=== PATIENT | male | born 1960 | race Caucasian/White ===

== ENCOUNTER 2022-12-15 14:16 | Inpatient (IN) | payer MEDICARE, OTHER, SELFPAY ==
[2022-12-15] VITALS (12 sets, daily range): BP systolic 148–199; BP diastolic 71–79; PULSE 82–91; RESP 12–20; TEMP 36.1–36.8; O2SAT 96–100; BMI 29.3
--- NOTE | ~2022-12-15 | XR_ITS ---
EXAMINATION: XR chest 1V portable DATE: 12/20/2022 05:44 INDICATION: Acute respiratory failure. Pulmonary edema. TECHNIQUE: A single frontal view of the chest was obtained. COMPARISON: Chest single view 12/19/2022, CT abdomen and pelvis 12/18/2022 FINDINGS: There is a diffuse interstitial pattern in the lungs. There are airspace opacities in the l ower lung zones, left worse than right. No pleural effusion or pneumothorax. The heart size is normal . Surgical clips in the right upper quadrant are likely from cholecystectomy. IMPRESSION: 1. Diffuse lung disease with improvement in left midlung zone, consistent with pulmonary edema versus pneumonia. Reviewed, dictated and finalized at location E.
--- NOTE | ~2022-12-15 | CT_ITS ---
EXAMINATION: CTA abd aorta runoff DATE: 12/16/2022 14:24 INDICATION: Assess for hematoma post cardiac care. Presented with shortness of breath and hypertensio n post cardiac catheterization with subsequent hypotension following intubation with propofol sedatio n. TECHNIQUE: Computed tomographic angiography (CTA) of the abdominal, pelvis, and both lower extremitie s was performed with 150 mL Omnipaque 350 intravenous contrast. Automated exposure control and iterat cesia reconstruction technique were employed. The dose-length product was 1743.5 mGy-cm. COMPARISON: Chest CT dated 12/16/2022 at 10:54 AM FINDINGS: ABDOMINAL AORTA AND ITS BRANCHES: Abdominal aorta is normal in caliber with no dissection. There is a small amount of nonhemodynamicall y significant atherosclerotic plaque scattered along the aorta without hemodynamically significant st enosis. Small amount of additional scattered atherosclerotic plaque without hemodynamically significa nt stenosis at the origin of the celiac axis, long portion of the superior mesenteric artery and at t he origins of the bilateral renal arteries and inferior mesenteric artery. Incidentally noted is tamir tional small accessory right renal artery. PELVIC VASCULATURE: Scattered minimal amount of atherosclerotic plaque without hemodynamic significant stenosis along the right common and right internal iliac arteries. Remaining common, external and internal iliac arteri es are patent without evident atherosclerotic plaque. RIGHT LOWER EXTREMITY: There is an arterial access sheath extending into the right common femoral artery with distal tip in the distal right external iliac artery. There is stranding in the surrounding subcutaneous tissues wh ich tracks inferiorly along the anteromedial aspect of the proximal most right thigh consistent with likely hematoma related to the vascular access. No evident pseudoaneurysm or active contrast extravas ation. Small amount of atherosclerotic calcific location without significant stenosis at the right co mmon femoral artery. More extensive peripheral likely Monckeberg type vascular calcifications without hemodynamically significant stenosis along the right superficial femoral, profunda femoral and popli teal arteries. Additional scattered vascular calcification is along the more distal arteries which li mits assessment for degree of stenosis. The right anterior tibial artery is atretic with contrast opa cification disappearing at the level of the junction of the mid to distal third of the lower leg. The re is 2 vessel runoff below the ankle in the right posterior tibial and peroneal arteries, the latter resupplying the right dorsalis pedis artery. LEFT LOWER EXTREMITY: Relatively symmetric appearing diffuse peripheral likely Monckeberg type vascular calcification is al frandy the right superficial femoral, deep femoral and popliteal arteries without hemodynamically signif icant stenosis. There is three-vessel runoff below the left ankle. ADDITIONAL FINDINGS: Small bilateral pleural effusions. Large amount of consolidation in the dependent right lower lobe wi th smaller patchy airspace opacities in the left lower lobe. Linear discoid atelectasis at the lingul a and right middle lobe. Heart size is normal. Atherosclerotic coronary artery calcifications and lik mikel stenting along the left anterior descending coronary artery. Aortic valve calcification. No peric ardial effusion. There is reflux of a significant amount of contrast into the inferior vena cava belo w the level of the renal veins consistent with tricuspid regurgitation. Nasogastric tube with distal tip in proximal side port in the body of the stomach. Cholecystectomy clips the gallbladder fossa. Li harlan, spleen, pancreas, bilateral adrenal glands are normal. There are bilateral renal cysts, the larg est measuring up to 1.5 cm the right kidney. Bowels including the appendix are normal. Moderate-sized f
--- NOTE | ~2022-12-15 | XR_ITS ---
Portable chest x-ray Comparison: 12/17/2022 Clinical History: Acute respiratory failure Findings: Endotracheal tube and NG tube are in satisfactory positions. There is extensive interstiti al disease with patchy haziness, especially the right midlung and left lower lobe. Cardiomediastinal silhouette is stable. Bones and soft tissues are unremarkable. Impression: Hazy and interstitial pulmonary disease. Correlate for pulmonary edema, infection, and/or chronic int erstitial disease. Support tubes, as above. Reviewed, dictated and finalized at location . Impression: Hazy and interstitial pulmonary disease. Correlate for pulmonary edema, infecti on, and/or chronic interstitial disease. Support tubes, as above.
--- NOTE | ~2022-12-15 | XR_ITS ---
EXAMINATION: XR chest ET placement, XR abdomen gastric tube insert DATE: 12/16/2022 10:25 INDICATION: Endotracheal tube placement for respiratory distress. Orogastric tube insertion. TECHNIQUE: 1. Portable AP supine view of the chest was obtained. 2. Portable AP supine view of the abdomen was obtained. COMPARISON: Chest radiograph dated 12/15/2022 FINDINGS: Chest: Endotracheal tube placement with distal tip 3 cm above the bakari. Significant increase in now extens cesia diffuse bilateral interstitial and airspace opacities throughout both lungs. No pleural effusion or pneumothorax. Size is normal. Abdomen: Nasogastric tube tip in proximal side port in the body of the stomach. Cholecystectomy clips in right upper quadrant. No dilated loops of gas-filled bowel to suggest obstruction. IMPRESSION: 1. Endotracheal tube and nasogastric tube in expected positions. 2. Significant increase in diffuse bilateral interstitial and airspace opacities most likely worsenin g moderate severity pulmonary edema with differential including pneumonia. Reviewed, dictated and finalized at location A. IMPRESSION: 1. Endotracheal tube and nasogastric tube in expected positions. 2. Significant increase in diffuse bilateral interstitial and airspace opacitie s most likely worsening moderate severity pulmonary edema with differential inc luding pneumonia.
--- NOTE | ~2022-12-15 | XR_ITS ---
XR chest 1V portable DATE: 12/21/2022 05:26 INDICATION: Acute respiratory failure, pulmonary edema TECHNIQUE: Portable AP chest on 12/21/2022 at 0513 hours COMPARISON: 12/21/2019 portable AP chest 0521 hours FINDINGS: Elevated right diaphragm again noted. Patchy bilateral pulmonary infiltrates are improved since 12/20/2022, particularly in the left lower lung zone. There is minimal if any pleural effusion. No pneumothorax. Heart size appears within normal range. IMPRESSION: Improvement of bilateral pulmonary infiltrates, especially in the left lower lung since 1 Reviewed, dictated and finalized at location A. IMPRESSION: Improvement of bilateral pulmonary infiltrates, especially in the l eft lower lung since 12/13
--- NOTE | ~2022-12-15 | CT_ITS ---
EXAMINATION: CTA abd aorta runoff DATE: 12/18/2022 20:21 INDICATION: drop in hemoglobin, post cardiac cath groin site. TECHNIQUE: Computed tomography (CT) of the abdomen and pelvis was performed with 150 mL Omnipaque-350 intravenous contrast in the arterial phase. 3-D volume rendered images produced by the technologist on a separate workstation Automated exposure control and iterative reconstruction technique were empl oyed. The dose-length product was 1946.74 mGy-cm. COMPARISON: None. FINDINGS: Subsegmental right basilar and subsegmental left basilar consolidation. Multiple bilateral renal cyst s. NG tube terminating in the stomach. Atherosclerotic arterial calcifications. No abdominal aortic a neurysm. Moderate umbilical hernia containing fat. Status post cholecystectomy. Significant soft tiss ue stranding in the right inguinal canal and about the right hip. No extravasation or pseudoaneurysm. Slow arterial flow in the leg vessels due to atherosclerotic disease. No severe stenosis detected. 2 vessel flow appears to be maintained below the level of the ankles. IMPRESSION: Significant right inguinal and right hip subcutaneous stranding, likely representing hemorrhage from recent procedure. No active extravasation or pseudoaneurysm. No intra-abdominal bleeding detected. Bibasilar atelectasis/consolidation. Reviewed, dictated and finalized at location K. IMPRESSION: Significant right inguinal and right hip subcutaneous stranding, likely represe nting hemorrhage from recent procedure. No active extravasation or pseudoaneury sm. No intra-abdominal bleeding detected. Bibasilar atelectasis/consolidation.
--- NOTE | ~2022-12-15 | XR_ITS ---
Portable chest x-ray Comparison: 12/16/2022 Clinical History: Respiratory failure Findings: Endotracheal tube and NG tube are in satisfactory positions. There is mild predominantly i nterstitial edema pattern, mildly improved from prior exam. Cardiomediastinal silhouette is stable. Bones and soft tissues are unremarkable. Impression: Probable interstitial pulmonary edema pattern, mildly improved. Correlate for chronic interstitial di sease or atypical infection. Support tubes, as above. Reviewed, dictated and finalized at location . Impression: Probable interstitial pulmonary edema pattern, mildly improved. Correlate for c hronic interstitial disease or atypical infection. Support tubes, as above.
--- NOTE | ~2022-12-15 | XR_ITS ---
XR chest ET placement, XR abdomen gastric tube insert 12/16/2022 11:09 Indication: Intubation Procedure: AP portable chest and limited AP portable supine view of the upper abdomen Comparison: 12/16 and 12/15/2022 Findings: NG tube in the stomach. Diffuse bilateral airspace disease unchanged. Endotracheal tube tip 3.4 cm above the bakari. There is a coronary vascular stent. No significant effusion. No pneumothora x. No acute osseous abnormality. Impression: 1: Diffuse bilateral airspace disease which may represent edema or pneumonia. Reviewed, dictated and finalized at location B. Impression: 1: Diffuse bilateral airspace disease which may represent edema or pneumonia. Impression: 1: Diffuse bilateral airspace disease which may represent edema or pneumonia.
--- NOTE | ~2022-12-15 | XR_ITS ---
EXAMINATION: XR chest 1V portable DATE: 12/19/2022 05:26 INDICATION: Acute respiratory failure. Pulmonary edema. TECHNIQUE: A single frontal view of the chest was obtained. COMPARISON: Chest single view 12/18/2022, CT abdomen and pelvis 12/18/2022 FINDINGS: There is a diffuse interstitial pattern in the lungs. There are airspace opacities in right lower lung zone and left mid and lower lung zones. No pleural effusion or pneumothorax. The heart si ze is normal. The endotracheal tube tip is 4.9 cm above the bakari. The nasogastric tube tip is in th e stomach. Surgical clips in the right upper quadrant are likely from cholecystectomy. IMPRESSION: 1. Diffuse lung disease with worsening on the left, consistent with pulmonary edema versus pneumonia. Reviewed, dictated and finalized at location E. IMPRESSION: 1. Diffuse lung disease with worsening on the left, consistent with pulmonary e cristobal versus pneumonia.
--- NOTE | ~2022-12-15 | XR_ITS ---
EXAMINATION: XR chest 1V portable Exam Date/Time: 12/15/2022 14:45 CDT HISTORY: cp FRONTAL WALL TODAY Comparison: None. RESULT: Lines, tubes, and devices: None. Lungs and pleura: Moderate diffuse reticular opacities with patchy left lung and right lower lung op acities. Streaky bibasilar opacities, likely scar/atelectasis. Cardiomediastinal silhouette: Stable. Other: No acute osseous or upper abdominal finding. IMPRESSION: Pulmonary opacities may reflect moderate pulmonary edema in the appropriate clinical context. Infecti on is not excluded. Reviewed, dictated and finalized at location K. IMPRESSION: Pulmonary opacities may reflect moderate pulmonary edema in the appropriate cli nical context. Infection is not excluded.
--- NOTE | 2022-12-15 14:19 | ECG_ITS ---
Measurements Intervals [place] Rate: 93 P: 21 HI: 150 QRS: 22 QRSD: 90 T: 30 QT: 359 QTc: 449 Interpretive Statements SINUS RHYTHM NORMAL ELECTROCARDIOGRAM NO PREVIOUS ECG AVAILABLE FOR COMPARISON Electronically Signed On 12-16-2022 7:02:32 CDT by Phuc Staples M.D.
--- NOTE | 2022-12-15 14:20 | ED.CHESTPAIN ---
HPI - Chest Pain General Chief Complaint: Chest Pain Stated Complaint: chest pain Time Seen by Provider: 12/15/22 14:20 History of Present Illness HPI narrative: Patient is a 62-year-old male with history of ESRD on hemodialysis MWF, CAD with 2 coronary stents here with chest pain. patient states that he was visiting his son at college nearby and about 10 minutes away from his child home he started feeling some substernal chest pain. He states that it seemed to worsen and spread throughout his entire chest. The pain was associated with some numbness in his left arm. He proceeded to go to his son's house and walk up about 20 stairs. On ambulating up the stairs the pain became significantly worse, he felt as though he may pass out and he became diaphoretic, short of breath and nauseous, vomiting 1 time. Once he rested he did feel a bit better upon returning to his car however he had continued chest pain so him and his came to the emergency department. He states he is only having mild midsternal discomfort at this time, it has improved from earlier. He does note that he recently had a upper respiratory infection which she seems to be recovering from. On further questioning patient does note that he has been having some vague diffuse chest pains intermittent over the last 1 month. He has been on dialysis since a prolonged hospital stay for [facility] when he was on a ventilator for about 3 months. He has not sought any care for this. He has not missed any dialysis. Related Data Allergies Allergy/AdvReac Type Severity Reaction Status Date / Time Penicillins Allergy Swelling Verified 12/15/22 14:34 Review of Systems Review of Systems: All systems reviewed & are unremarkable except as noted in HPI and below Exam Narrative: GENERAL: Well-appearing, well-nourished, and in no acute distress. HEAD: Normocephalic, atraumatic. EYES: PERRLA and EOMI. ENT: Nares clear. Mucous membranes moist. NECK: Supple. CHEST: Clear to auscultation. No respiratory distress. HEART: Regular rate and rhythm. Normal peripheral pulses. ABDOMEN: Soft, nontender, nondistended. EXTREMITIES: Normal range of motion. No edema. Fistula in right upper extremity, good thrill on exam. SKIN: Warm, dry, no rash. NEURO: No focal deficits. Alert and oriented x3. PSYCH: Normal mood and affect. Course Course Emergency Course: Chart review performed, patient here with chest pain. No prior visits here in the ED. Triage vitals show HTN, otherwise normal. Patient seen and evaluated. Patient is here with typical chest pain symptoms which worsened with exertion at home. Will do cardiac workup. Given risk factors expect admission. Will do nitro trial. Patient has had complete resolution of chest pain with nitroglycerin. He does have hyperkalemia at 6.1 on lab work and renal function consistent with ESRD on hemodialysis. Patient notes that he tends to run in the 5s and lower 6 is for his potassium. Will do treatment with insulin, D50, Kayexalate. Initial troponin is negative. CXR shows moderate pulmonary edema. Spoke with Kirit from hospitalist service, accepts patient for admission. Will get cardiology and nephrology on the case. Spoke with Dr. Urbano and Dr. Olvera who will be on consult. Patient confirms he is full code. Vital Signs Vital signs: Vital Signs Pulse Rate 91 12/15/22 14:24 Respiratory Rate 12 12/15/22 14:24 Pulse Oximetry 97 12/15/22 14:24 Temperature 98.2 F 12/15/22 14:29 Pulse Rate 90 12/15/22 15:01 Respiratory Rate 15 12/15/22 15:01 Blood Pressure 148/79 H 12/15/22 15:01 Pulse Oximetry 98 12/15/22 15:01 Oxygen Delivery Room Air 12/15/22 14:29 MDM - Chest Pain Lab Data 12/15/22 14:26 12/15/22 14:26 Labs: Lab Results 12/15/22 Range/Units 14:26 WBC 5.9 (4.5-10.0) K/mm3 RBC 2.90 L (4.6-6.20) M/mm3 Hgb 9.2 L (14.0-18.0) g/dL Hct 29.9 L (42.0-5
[2022-12-15 14:31] LABS: Basophils Percent Auto 0.5 % (0.2-1.2); Eosinophils Absolute Auto 0.1 K/mm3 (0-0.3); Eosinophils Percent Auto 1.7 % (0-4.4); Hematocrit 29.9 % (42.0-52.0); Hemoglobin 9.2 g/dL (14.0-18.0); Immature Granulocyte Absolute 0.01 K/mm3 (0.00-0.031); Immature Granulocyte Percent A 0.2 % (0-0.5); Lymphocytes Absolute Auto 0.88 K/mm3 (0.9-3.2); Lymphocytes Percent Auto 14.8 % (18.3-44.2); Mean Corpuscular HGB Conc 30.8 g/dl (32-36); Mean Corpuscular Hemoglobin 31.7 pg (26-34); Mean Corpuscular Volume 103.1 fl (80-100); Mean Platelet Volume 9.9 fl (7.4-10.4); Monocytes Absolute Auto 0.3 K/mm3 (0.1-0.6); Monocytes Percent Auto 5.4 % (2.6-8.5); Neutrophils Absolute Auto 4.6 K/mm3 (1.3-6.7); Neutrophils Percent Auto 77.4 % (45.5-73.1); Platelet Count Result 125 k/mm3 (150-375); White Blood Count 5.9 K/mm3 (4.5-10.0)
[2022-12-15] MEDS: ASPIRIN 81 MG CHEWABLE TABLET 324 MG PO (14:37)
[2022-12-15 14:43] LABS: Partial Thromboplastin Time 26.4 SECONDS (22.3-36.8)
[2022-12-15] MEDS: NITROGLYCERIN SL 0.4 MG TABLET SUBLINGUAL ×2 (14:43→16:58)
[2022-12-15 14:52] LABS: Alanine Aminotransferase 33 U/L (6-50); Albumin Level 4.2 g/dL (3.5-5.1); Alkaline Phosphatase 98 U/L (38-126); Anion Gap 11 mmol/L (8-16); Aspartate Amino Transferase 36 U/L (17-59); Bilirubin,Total 0.5 mg/dL (0.2-1.3); Blood Urea Nitrogen 78 mg/dL (9-20); Calcium 9.8 mg/dL (8.4-10.2); Carbon Dioxide 30 mmol/L (22-30); Chloride 97 mmol/L (98-107); Estimated CRCL calculation 7 ml/min; Estimated Glomerular Filt Rate 5; Glucose 339 mg/dL (65-110); Lipase 121 U/L (23-300); Potassium 6.1 mmol/L (3.4-5.0); Sodium 138 mmol/L (137-145)
[2022-12-15 14:58] LABS: Troponin I 0.017 ng/mL (0.000-0.034)
[2022-12-15] MEDS: SODIUM POLYSTYRENE SULFONONATE 15 GM/60 ML BTL 30 GM PO (15:17)
[2022-12-15] MEDS: INSULIN HUMAN REGULAR (*BKC) 100 UNITS/ML 10 UNITS IV PUSH (15:18)
[2022-12-15] MEDS: DEXTROSE 50% 25 GM/50 ML SYRINGE IV PUSH (15:18)
--- NOTE | 2022-12-15 15:30 | PM.IMHP ---
H&P: HPI History of Present Illness Date/Time: 12/15/22 15:30 Chief Complaint: Chest pain Narrative: This is a 62-year-old male patient who is being admitted to the hospital for high risk chest pain with a heart score of 5 and a story strongly suspicious for CAD. 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 Patient also has 2 prior stents feels like his pain today was reminiscent when he had angioplasty and stenting prior. Patient sees Cardiology and Nephrology at [place] receives his dialysis in his hometown of [place]. Patient was visiting his son at [facility] preceding today's event. Patient has been complaining intermittent chest discomfort over the last 1 month but today while patient was climbing 20 stairs to his son's apartment he suddenly had sensation chest pain radiating to the left with dizziness near-syncope and vomiting. Patient reports that upon getting to the hospital his chest pain was improved with rest and then resolved after 1 nitroglycerin. He was noted to have elevated blood glucose as well as elevated potassium level on chemistry panel. He is due for dialysis tomorrow. 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 Patient was treated with dextrose and insulin by the emergency department as well as given Kayexalate. Patient reports now that he is chest pain-free no current nausea vomiting fever chills abdominal pain bowel or bladder problems. He notes compliance with all of his medications. Review of Systems Review of Systems: All systems reviewed & are unremarkable except as noted in HPI and below PMFSH Past Medical History Medical History (Updated 12/15/22 @ 17:44 by Kirit Mooney APRN) Acute hyperkalemia Anemia in chronic kidney disease, on chronic dialysis CAD (coronary artery disease) Diabetes mellitus type 1.5 ESRD on hemodialysis Hypertension SHEYLA on CPAP Surgical History Surgical History H/O heart artery stent Meds Home Medications and Allergies Allergies Allergy/AdvReac Type Severity Reaction Status Date / Time Penicillins Allergy Swelling Verified 12/15/22 14:34 Vital Signs Vital Signs - 24 hr 12/15/22 14:29 12/15/22 14:29 Temperature 36.8 C Pulse Rate 88 Respiratory Rate 12 Blood Pressure 167/75 H Pulse Oximetry 100 100 Oxygen Delivery Room Air Room Air Exam Narrative: GENERAL: Chronically ill-appearing, alert and oriented, in no apparent distress. He is pleasant and conversant in full sentences. HEENT: Pupils are equally round and briskly reactive to light. Extraocular muscles are intact. Oral mucous membranes are moist without lesions. NECK: The patient has no noted JVD. No adenopathy is appreciated. CHEST/LUNGS: Lungs are clear bilaterally without rhonchi, rales, or wheezes. There is no subcutaneous air appreciated. There is no tenderness to the chest wall. HEART: The patient has a regular rate and rhythm. Loud systolic murmur noted. Sinus rhythm rate of 86 on secured entrance monitor by my interpretation ABDOMEN: The patient?s abdomen is rotund, soft, nontender, and nondistended. Bowel sounds are positive. No organomegaly is appreciated. No masses are appreciated. There are no peritoneal signs. There is no Burk?s sign. EXTREMITIES: The patient has no peripheral edema. There is no focal long bone tenderness or deformity. Right upper extremity dialysis fistula with positive thrill and bruit. SKIN: The patient?s skin is warm and dry, without rashes or lesions. PSYCHIATRIC: The patient has normal mental status and has an appropriate affect. NEUROLOGIC: There are no gross deficits to the cranial nerves. Patient ambulates with stead
--- NOTE | 2022-12-15 16:54 | ECG_ITS ---
Measurements Intervals [place] Rate: 92 P: 5 CT: 97 QRS: 29 QRSD: 94 T: 19 QT: 348 QTc: 431 Interpretive Statements SINUS RHYTHM WITH SHORT CT INTERVAL NONSPECIFIC T-WAVE ABNORMALITY BORDERLINE ECG NO PREVIOUS ECG AVAILABLE FOR COMPARISON Electronically Signed On 12-16-2022 7:03:33 CDT by Phuc Staples M.D.
--- NOTE | 2022-12-15 17:13 | ADMGEN ---
This patient, Juanito Marroquin, was admitted to IMU Room 214-01. Patient/family oriented to hospital policies and general routines including ID bracelet, bed and alarms, visiting hours, pain management, procedures, bathroom and other care routines, personal items, smoking policy, room service/diet, and visiting hours. Information on how to activate the Rapid Response Team has been discussed. Patient/Family are encouraged to report perceived risks to care and to ask questions if they do not understand what they are told or what they should do.
[2022-12-15 17:31] LABS: Glucose Point of Care 249 mg/dl (65-105)
[2022-12-15] MEDS: INSULIN ASPART (*BKC) 100 UNITS/ML 20 UNITS SUB-Q (17:46)
[2022-12-15 18:40] LABS: Troponin I 0.034 ng/mL (0.000-0.034)
[2022-12-15 18:47] LABS: Magnesium 2.6 mg/dL (1.6-2.3)
[2022-12-15 18:59] LABS: Hemoglobin A1C 6.6 % (<5.7)
[2022-12-15 19:19] LABS: Glucose Point of Care 262 mg/dl (65-105)
[2022-12-15 20:24] LABS: Albumin Level 3.9 g/dL (3.5-5.1); Anion Gap 9 mmol/L (8-16); Blood Urea Nitrogen 84 mg/dL (9-20); Calcium 9.3 mg/dL (8.4-10.2); Carbon Dioxide 32 mmol/L (22-30); Chloride 98 mmol/L (98-107); Estimated CRCL calculation 7 ml/min; Estimated Glomerular Filt Rate 5; Glucose 245 mg/dL (65-110); Phosphorus 5.1 mg/dL (2.5-4.5); Potassium 5.3 mmol/L (3.4-5.0); Sodium 139 mmol/L (137-145)
[2022-12-15 20:45] LABS: Troponin I 0.049 ng/mL (0.000-0.034)
[2022-12-15] MEDS: FLUTICASONE PROPIONATE 0.05% NA SPR 16 GM BTL (*BKC) 2 SPRAY NASAL (20:51)
[2022-12-15] MEDS: OLANZapine 5 MG TABLET PO (20:52)
[2022-12-15] MEDS: ROSUVASTATIN 10 MG TABLET PO (20:53)
[2022-12-15] MEDS: ARIPiprazole 5 MG TABLET PO (20:53)
[2022-12-15] MEDS: MIRTAZAPINE 15 MG TABLET PO (20:54)
[2022-12-15] MEDS: traZODone HCL 50 MG TABLET PO (20:54)
[2022-12-15] MEDS: METOPROLOL TARTRATE 25 MG TABLET PO (20:54)
[2022-12-15] MEDS: INSULIN ASPART (*BKC) 100 UNITS/ML SUB-Q (20:57)
[2022-12-15] MEDS: INSULIN GLARGINE (*BKC) 100 UNITS/ML 20 UNITS SUB-Q (20:58)
[2022-12-15 21:46] LABS: Basophils Percent Auto 0.6 % (0.2-1.2); Eosinophils Absolute Auto 0.1 K/mm3 (0-0.3); Eosinophils Percent Auto 1.7 % (0-4.4); Hematocrit 26.3 % (42.0-52.0); Hemoglobin 8.2 g/dL (14.0-18.0); Immature Granulocyte Absolute 0.02 K/mm3 (0.00-0.031); Immature Granulocyte Percent A 0.4 % (0-0.5); Lymphocytes Absolute Auto 0.87 K/mm3 (0.9-3.2); Lymphocytes Percent Auto 18.4 % (18.3-44.2); Mean Corpuscular HGB Conc 31.2 g/dl (32-36); Mean Corpuscular Hemoglobin 31.9 pg (26-34); Mean Corpuscular Volume 102.3 fl (80-100); Monocytes Absolute Auto 0.4 K/mm3 (0.1-0.6); Monocytes Percent Auto 8.1 % (2.6-8.5); Neutrophils Absolute Auto 3.3 K/mm3 (1.3-6.7); Neutrophils Percent Auto 70.8 % (45.5-73.1); Platelet Count Result 122 k/mm3 (150-375); Red Blood Count 2.57 M/mm3 (4.6-6.20); White Blood Count 4.7 K/mm3 (4.5-10.0)
[2022-12-15 21:58] LABS: Partial Thromboplastin Time 29.2 SECONDS (22.3-36.8)
[2022-12-15] MEDS: HEPARIN SODIUM 5,000 UNITS/ML VIAL 4000 UNITS IV PUSH (22:22)
[2022-12-15] MEDS: HEPARIN SOD/D5W 100 UNITS/ML 25,000 UNITS/250 ML BAG 10 UNITS IV CONT (22:26)
--- NOTE | 2022-12-15 22:57 | ECG_ITS ---
Measurements Intervals [place] Rate: 92 P: 9 PA: 103 QRS: 31 QRSD: 98 T: 23 QT: 360 QTc: 446 Interpretive Statements SINUS RHYTHM WITH SHORT PA INTERVAL NONSPECIFIC T-WAVE ABNORMALITY BORDERLINE ECG COMPARED TO ECG 12/15/2022 16:59:43 NO SIGNIFICANT CHANGES Electronically Signed On 12-16-2022 7:07:42 CDT by Phuc Staples M.D.
[2022-12-16] VITALS (74 sets, daily range): BP systolic 59–208; BP diastolic 45–92; PULSE 65–115; RESP 14–28; TEMP 36.4–37.9; O2SAT 94–100; BMI 29.7
[2022-12-16 00:50] LABS: Glucose Point of Care 67 mg/dl (65-105)
[2022-12-16] MEDS: NITROGLYCERIN SL 0.4 MG TABLET SUBLINGUAL ×2 (01:35→01:41)
--- NOTE | 2022-12-16 02:01 | ECG_ITS ---
Measurements Intervals [place] Rate: 95 P: 23 IN: 152 QRS: 19 QRSD: 94 T: 26 QT: 358 QTc: 450 Interpretive Statements SINUS RHYTHM NONSPECIFIC T-WAVE ABNORMALITY BORDERLINE ECG COMPARED TO ECG 12/15/2022 23:00:21 NO SIGNIFICANT CHANGES Electronically Signed On 12-16-2022 7:08:00 CDT by Phuc Staples M.D.
[2022-12-16] MEDS: MORPHINE SULFATE (*CRX) 2 MG/ML INJ 1 MG IV PUSH (02:14)
[2022-12-16 02:17] LABS: Glucose Point of Care 103 mg/dl (65-105)
[2022-12-16 02:51] LABS: Troponin I 0.056 ng/mL (0.000-0.034)
[2022-12-16] MEDS: NITROGLYCERIN OINTMENT 1 INCH DOSE TRANSDERM (02:55)
[2022-12-16] MEDS: LORazepam INJ (*CRX) 2 MG/ML VIAL 1 MG IV PUSH (04:25)
[2022-12-16] MEDS: PANTOPRAZOLE SODIUM IV 40 MG VIAL IV PUSH ×2 (04:25→20:13)
[2022-12-16 04:48] LABS: Basophils Percent Auto 0.4 % (0.2-1.2); Eosinophils Absolute Auto 0.1 K/mm3 (0-0.3); Eosinophils Percent Auto 0.6 % (0-4.4); Hematocrit 28.3 % (42.0-52.0); Hemoglobin 8.8 g/dL (14.0-18.0); Immature Granulocyte Absolute 0.01 K/mm3 (0.00-0.031); Immature Granulocyte Percent A 0.1 % (0-0.5); Lymphocytes Absolute Auto 0.97 K/mm3 (0.9-3.2); Lymphocytes Percent Auto 12.1 % (18.3-44.2); Mean Corpuscular HGB Conc 31.1 g/dl (32-36); Mean Corpuscular Hemoglobin 31.9 pg (26-34); Mean Corpuscular Volume 102.5 fl (80-100); Mean Platelet Volume 10.1 fl (7.4-10.4); Monocytes Absolute Auto 0.5 K/mm3 (0.1-0.6); Monocytes Percent Auto 5.9 % (2.6-8.5); Neutrophils Absolute Auto 6.5 K/mm3 (1.3-6.7); Neutrophils Percent Auto 80.9 % (45.5-73.1); Platelet Count Result 134 k/mm3 (150-375); Red Blood Count 2.76 M/mm3 (4.6-6.20); Red Cell Distribution Width 13.9 % (11.5-14.5)
--- NOTE | 2022-12-16 04:51 | ECG_ITS ---
Measurements Intervals [place] Rate: 97 P: 19 [place]: 152 QRS: 12 QRSD: 84 T: 10 QT: 347 QTc: 441 Interpretive Statements SINUS RHYTHM LOW QRS VOLTAGE IN PRECORDIAL LEADS [QRS DEFLECTION < 1.0 mV IN CHEST LEADS] OTHERWISE WITHIN NORMAL LIMITS COMPARED TO ECG 12/16/2022 02:11:54 NO SIGNIFICANT DIFFERENCE Electronically Signed On 12-16-2022 7:10:36 CDT by Phuc Staples M.D.
[2022-12-16 04:58] LABS: Albumin Level 4.1 g/dL (3.5-5.1); Anion Gap 11 mmol/L (8-16); Blood Urea Nitrogen 84 mg/dL (9-20); Calcium 9.4 mg/dL (8.4-10.2); Carbon Dioxide 31 mmol/L (22-30); Chloride 97 mmol/L (98-107); Estimated CRCL calculation 7 ml/min; Estimated Glomerular Filt Rate 4; Glucose 163 mg/dL (65-110); Phosphorus 5.9 mg/dL (2.5-4.5); Potassium 5.2 mmol/L (3.4-5.0); Sodium 139 mmol/L (137-145)
[2022-12-16 05:08] LABS: Partial Thromboplastin Time 73.4 SECONDS (22.3-36.8)
[2022-12-16] MEDS: ALBUTEROL SULFATE (*SP) AEROSOL 1 PUFF 2 PUFF INHALATION (05:20)
[2022-12-16] MEDS: NITROGLYCERIN/D5W 200 MCG/ML 50 MG/250 ML BTL IV CONT (05:39)
[2022-12-16] MEDS: METOPROLOL TARTRATE INJ 5 MG/5 ML VIAL IV PUSH (05:50)
--- NOTE | 2022-12-16 05:54 | PC.NURSE ---
Received patient from IMU into ICU 3 at 0510 due to nausea, chest pain rated 6/10 radiating down left arm and needs for nitro drip. Pt moved to ICU 4 at 0530 for monitoring capabilities. Patient has bilateral posterior wheezes and reports shortness of breath. On 4L at 100%. Patient given rescue inhaler and WOB improved. Patient started on nitro drip per Dr Staples with chest pain at 4/10 and BP 168/78. 5mg metoprolol given with chest pain 3/10 and BP 190/82. At 0557 patient reports no SOB, no nausea, and chest pain at a 2/10. Oxygen reduced to 2L per nasal cannula.
--- NOTE | 2022-12-16 06:23 | PC.NURSE ---
nitro patch removed from chest.
--- NOTE | 2022-12-16 06:30 | PC.NURSE ---
Kristian called and made aware of change in status and room change. She will try to be here as soon as she can. Directions to ICU given.
[2022-12-16 07:02] LABS: Hepatitis B Surface Antigen Negative (Negative)
[2022-12-16 07:18] LABS: Hepatitis B Surface Anti Res Indeterminate
--- NOTE | 2022-12-16 07:38 | PC.NURSE ---
Dr. Staples to bedside. to take patient to Cardiac Cath now.
--- NOTE | 2022-12-16 07:40 | PM.CNCAR ---
Assessment and Plan Assessment and plan (1) Chest pain: Qualifiers: Chest pain type: unspecified Qualified Code(s): R07.9 - Chest pain, unspecified Code(s): R07.9 - Chest pain, unspecified Status: Acute (2) ESRD on hemodialysis: Code(s): N18.6 - End stage renal disease; Z99.2 - Dependence on renal dialysis Status: Acute Plan This is a 62-year-old man with coronary artery disease and what he describes as mild aortic valve stenosis in his follow-up with his metal stamping machine operator at [place]. He has previous PCI details unavailable to me about 2 years ago. He enters the hospital with waxing waning chest pain consistent with unstable angina. We will make arrangements for follow-up angiography. I offered to the patient contacting his metal stamping machine operator at [place] and transferring him over there or proceeding with angiography here. He wishes to remain here at [place] for this time being. I will also need to review the results of his records of the previous PCI hopefully prior to proceeding with today's procedure. Further recommendations to be pending completion of this morning's angiogram Phuc Staples MD [facility] History of Present Illness History of Present Illness Consult date/time: 12/16/22 07:40 Reason For Visit: Chest pain Narrative: This is a 62-year-old man I am seeing at the request of the hospitalist because of chest pain concerning unstable angina. This is a man I have not seen previously but has an established history of coronary artery disease with previous PCI. He came to the hospital yesterday afternoon/evening because of significant chest pain associated with nausea and diaphoresis. He was walking in the [place] area and into his son's residence. He has to go up to a number of flights of stairs to get to his son's residence and when he got to the top of the staircase he was having significant retrosternal burning pain associated with some nausea and diaphoresis. He stopped to rest he took some nitroglycerin tablets and felt a bit better but the symptoms were lingering and so he came to the emergency room for evaluation. In the emergency department he received some additional nitrates and his pain was resolved. He was found to have a benign-looking ECG and normal biomarkers and was admitted to the hospital for further evaluation and management. Initially he was stable but through the night he has had waxing and waning episodes of chest discomfort which resulted in the decision to place him on heparin and IV nitroglycerin and transfer him to the ICU. His symptoms are very mild now he describes his pain at 1/10 his troponin levels have not risen significantly and his electrocardiograms remain unchanged. He has a history of longstanding hypertension and a history of end-stage renal disease he is on hemodialysis for about 2 years he states his renal failure was a consequence of the coronavirus infection. He does have a history of coronary artery disease he presented with some unstable exertional chest pain about 2 and half years ago and was transferred to [facility] for care and evaluation he states he underwent PCI involving 2 coronary stents placed at that time. The details of the intervention are not available to me at the time of this consult dictation. He says the procedure was successful and he has been following with his metal stamping machine operator at [place] since the procedure. 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
--- NOTE | 2022-12-16 07:56 | WPDCNINT ---
Assessment and Plan Assessment and plan (1) Chest pain: Qualifiers: Chest pain type: unspecified Qualified Code(s): R07.9 - Chest pain, unspecified Code(s): R07.9 - Chest pain, unspecified Status: Acute Assessment and Plan: Patient presented with chest pain with nausea, vomiting, diaphoresis and radiation to the left arm. -patient was transferred to the ICU from intermediate Unit on early hours of 12/16/2022 for increasing chest pain and requiring nitroglycerin infusion -appreciate cardiology evaluation and recommendation -patient will be going for angiogram today -remains on nitroglycerin infusion, p.r.n. IV metoprolol for hypertension -continue rosuvastatin (2) ESRD on hemodialysis: Code(s): N18.6 - End stage renal disease; Z99.2 - Dependence on renal dialysis Status: Acute Assessment and Plan: Nephrology has been consulted -dialysis likely after angiogram (3) Acute hyperkalemia: Code(s): E87.5 - Hyperkalemia Status: Acute Assessment and Plan: Have ordered Lokelma, will continue to monitor potassium level (4) Hypertension: Code(s): I10 - Essential (primary) hypertension Status: Acute Assessment and Plan: History of essential hypertension on amlodipine, p.o. metoprolol -p.r.n. metoprolol IV (5) SHEYLA on CPAP: Code(s): G47.33 - Obstructive sleep apnea (adult) (pediatric) Status: Acute Assessment and Plan: CPAP has been ordered (6) Diabetes mellitus type 1.5: Code(s): E13.9 - Other specified diabetes mellitus without complications Status: Acute Assessment and Plan: Continue Accu-Cheks, sliding scale and Lantus (7) Anemia in chronic kidney disease, on chronic dialysis: Code(s): N18.6 - End stage renal disease; D63.1 - Anemia in chronic kidney disease; Z99.2 - Dependence on renal dialysis Status: Acute Assessment and Plan: Anemia of chronic disease, hemoglobin has been stable since admission -do not have previous hemoglobin levels to compare Plan DVT prophylaxis: Heparin infusion Stress ulcer prophylaxis: Protonix Nutrition: NPO for angiogram Code Status: Full code Critical Care Time Spent: 49 minutes Discussed with cardiology Discussed with patient, updated with his condition and plan of care. He is aware that he is getting an angiogram this morning since he only spoke to the signing teacher. Due to a high probability of clinically significant, life threatening deterioration, the patient required my highest level of preparedness to intervene emergently and I personally spent this critical care time directly and personally managing the patient. This critical care time included obtaining a history; examining the patient; pulse oximetry; ordering and review of studies; arranging urgent treatment with development of a management plan; evaluation of patient's response to treatment; frequent reassessment; and discussions with other providers. It was exclusive of separately billable procedures and treating other patients and teaching time. Please see Assessment and Plan section and the rest of the note for further information on patient assessment and treatment This dictation may have been done utilizing a voice recognition system. Attempts have been made to correct errors. However, there may be uncorrected grammatical, spelling, and recognitions errors present. Ela Teacher Consult Note Consult date: 12/16/22 Reason for consult: NSTEMI, chest pain with radiation to the left arm, nausea, diaphoresis HPI: Juanito Marroquin is a 62 year old male with past medical history of end-stage renal disease on dialysis (M, W, F, ) chronic hyperkalemia, coronary artery disease status post stents x2 at [facility], essential hypertension, obstructive sleep apnea on CPAP, diabetes presented the ED on 12/15/2022 with complaints of chest pain with radiation to the left arm, associated diaphoresis, anjali
[2022-12-16 08:15] LABS: Glucose Point of Care 160 mg/dl (65-105)
--- NOTE | 2022-12-16 08:26 | WPDMODSED ---
Moderate Sedation Note-Pt Data Patient Data Diagnosis: Chest pain consistent with unstable angina coronary disease with previous PCI aortic valve stenosis felt to be moderate end-stage renal disease on hemodialysis Present Complaint: intermittent chest pain Procedure to be performed/Plan: coronary angiography Allergies Allergy/AdvReac Type Severity Reaction Status Date / Time Penicillins Allergy Swelling Verified 12/15/22 14:34 Home Medications Medication Instructions Recorded Confirmed Type B comp 3-folic acid 1 mg-C 60 1 tablet PO QAM 12/15/22 12/15/22 History mg-biotin 300 mcg-zinc ox 12.5 mg tablet acetaminophen 325 mg capsule 325 mg PO Q6H PRN Pain 12/15/22 12/15/22 History albuterol sulfate 90 mcg/actuation 2 puff inhalation QID PRN 12/15/22 12/15/22 History aerosol inhaler Shortness Of Breath amlodipine 10 mg tablet 10 mg PO QAM 12/15/22 12/15/22 History aripiprazole 5 mg tablet 5 mg PO HS 12/15/22 12/15/22 History ascorbic acid (vitamin C) 250 mg See Rx Instructions .Route .COMPLEX 12/15/22 12/15/22 History tablet aspirin 81 mg tablet 81 mg PO QAM 12/15/22 12/15/22 History budesonide-formoterol HFA 160 3 puff inhalation Q12H PRN 12/15/22 12/15/22 History mcg-4.5 mcg/actuation aerosol Shortness Of Breath inhaler (Symbicort) ergocalciferol (vitamin D2) 1,250 50,000 unit PO [id number] 12/15/22 12/15/22 History mcg (50,000 unit) capsule (Vitamin D2) fluticasone propionate 110 1 puff inhalation Q12H 12/15/22 12/15/22 History mcg/actuation HFA aerosol inhaler (Flovent HFA) fluticasone propionate 50 2 spray intranasal QAM 12/15/22 12/15/22 History mcg/actuation nasal spray,suspension hydrocodone 5 mg-acetaminophen 325 1 tablet PO Q6H PRN Pain 12/15/22 12/15/22 History mg tablet insulin aspart See Rx Instructions .Route .COMPLEX 12/15/22 12/15/22 History (niacinamide)(U-100) 100 unit/mL(3 mL) subcutaneous pen (Fiasp FlexTouch U-100 Insulin) insulin degludec 200 unit/mL (3 20 unit subcut HS 12/15/22 12/15/22 History mL) subcutaneous pen (Tresiba FlexTouch U-200 insulin) metoprolol tartrate 25 mg tablet 25 mg PO Q12H 12/15/22 12/15/22 History mirtazapine 15 mg tablet 15 mg PO HS 12/15/22 12/15/22 History olanzapine 5 mg tablet 5 mg PO HS 12/15/22 12/15/22 History pantoprazole 40 mg tablet,delayed 40 mg PO QAM 12/15/22 12/15/22 History release rosuvastatin 10 mg tablet 10 mg PO HS 12/15/22 12/15/22 History sodium zirconium cyclosilicate 10 See Rx Instructions .Route .COMPLEX 12/15/22 12/15/22 History gram oral powder packet (Lokelma) sucroferric oxyhydroxide 500 mg 500 mg PO AC 12/15/22 12/15/22 History chewable tablet (Velphoro) trazodone 50 mg tablet 50 mg PO HS 12/15/22 12/15/22 History Current Medications: Active Medications Acetaminophen (Acetaminophen 325 Mg Tablet) 650 mg PO Q4H PRN PRN Reason: Pain or Fever Hydrocodone Bitart/Acetaminophen (Hydrocodone/Acetaminophen (*Crx) 5-325 Mg Tablet) 1 tab PO Q6H PRN PRN Reason: Pain Rated 6 or Greater Albuterol (Albuterol Sulfate (*Sp) Aerosol 1 Puff) 2 puff INHALATION QID PRN PRN Reason: Shortness Of Breath Last Admin: 12/16/22 05:20 Dose: 2 puff Amlodipine Besylate (Amlodipine Besylate 5 Mg Tablet) 10 mg PO QAM INDERJIT Aripiprazole (Aripiprazole 5 Mg Tablet) 5 mg PO HS INDERJIT Last Admin: 12/15/22 20:53 Dose: 5 mg Ascorbic Acid (Ascorbic Acid 250 Mg Tablet) 250 mg PO DAILY INDERJIT Aspirin (Aspirin 81 Mg Chewable Tablet) 81 mg PO QAM INDERJIT Dextrose (Dextrose 50% 25 Gm/50 Ml Syringe) 12.5 gm IV PUSH PRN PRN; Protocol PRN Reason: Hypoglycemia Fluticasone Propionate (Fluticasone Propionate 0.05% Na Spr 16 Gm Btl (*Bkc)) 2 spray NASAL QAM [facility] Last Admin: 12/15/22 20:51 Dose: 2 spray Fluticasone Propionate (Fluticasone Prop 110 Mcg Inhaler 12 Gm (*Sp)) 1 puff INHALATION Q12HRT [facility] Last Admin: 12/15/22 20:56 Dose: Not Given Glucagon (Glucagon For Inj 1 Mg Vial) 1 mg IM PRN PRN; Pro
--- NOTE | 2022-12-16 09:31 | WPDCARDPROC ---
Cardiac Cath Procedure Note Date of procedure:: 12/16/22 Performing physician:: Phuc Staples MD Indication:: unstable angina Brief clinical history:: this is a 62-year-old man who has a history of coronary artery disease with PCI with stenting to his proximal LAD in August of 2019 at another hospital. He also is known to have moderate aortic valve stenosis and end-stage renal disease on hemodialysis. He presented to this hospital last evening with unstable angina. His electrocardiograms are benign in appearance and his troponin levels are minimally elevated consistent with his renal failure. Procedure Procedure performed:: Coronary angiography PTCA of in stent LAD stenosis Sedation/Medication given:: fentanyl 50 mg Versed 2 mg case start time 836 a.m. case end time 9:16 a.m. sedation provided by Henry Goyal RN, trained observer Access site:: right femoral artery Estimated blood loss:: 100 cc Procedure note:: patient was brought to the cardiac catheterization lab in the postabsorptive state the right femoral triangle was prepared and draped in the usual fashion. Anesthesia was provided with 1% lidocaine infiltrated locally. Using modified Seldinger technique the femoral artery was punctured and a guidewire was placed. Attempts to cannulate the artery with a 5 [place] sheath met with some resistance. Under fluoroscopic visualization there was some kinking of the guidewire. I pulled the wire back further outside of the skin and was still unable to successfully advance this wire into the femoral artery. I then removed the wire and held manual pressure. Following this I punctured the femoral artery a 2nd time higher than that location and successfully placed a long 035 wire into the aorta and placed a 5 [place] vascular sheath. Following this the right coronary artery was engaged and injected using a standard 5 [place] JR4 catheter. The left coronary artery was engaged and injected is a standard 5 [place] FL4 catheter. The cineangiograms were then reviewed and PCI of the proximal LAD was recommended and carried out as detailed below. Prior to PCI the 5 [place] sheath was changed over the long guidewire for spread sheath. During the procedure there was some evidence of hematoma developing at the puncture site which was addressed with additional manual pressure. The patient received 300 mg of clopidogrel and bolus and infusion of Angiomax prior to PCI. Following PCI as described below the sheath was sutured into position the patient was taken to the ICU for post cath/PCI recovery. During the intervention with the left coronary artery intubated with the guiding catheter the patient had significant ischemic chest pain, ST segment depression and significant hypertension. The symptoms improve significantly when the left coronary artery was no longer intubated with the guiding catheter. The pressure did not significantly dampened during the procedure. At the end of the procedure the sheath was sutured into position there is evident hematoma in the right groin but it is not expanding. He was given 200 mg of intravenous labetalol for hypertension at the conclusion of the procedure. Findings:: Hemodynamics: Central aortic pressure varied from 1 70/94 to 200/90. The LV was not entered during this procedure the left main coronary artery is medium in caliber without significant lesion the left anterior descending is a small diffusely diseased artery. There is visible stent material in the proximal LAD. In the proximal segment of the stented area there is 95 to 99% in stent stenosis which is very discrete. The circumflex is a moderate caliber artery without significant stenosis. The right coronary artery is large and dominant to the posterior circulation the trunk of the right coronary has no significant lesions. The 1st RPL branch which is relatively small has a proximal 80% stenosis. Intervention: The left co
[2022-12-16] MEDS: FUROSEMIDE INJ 100 MG/10 ML VIAL 80 MG IV PUSH (10:10)
[2022-12-16] MEDS: hydrALAZINE HCL 20 MG/ML VIAL IV PUSH (10:11)
[2022-12-16] MEDS: ETOMIDATE 20 MG/10 ML AMPUL 24 MG IV PUSH (10:23)
[2022-12-16] MEDS: ROCURONIUM BROMIDE 50 MG/5 ML VIAL IV PUSH ×2 (10:24→10:48)
[2022-12-16] MEDS: PROPOFOL IV EMULSION 100 ML 9.44 MG IV CONT (10:47)
[2022-12-16] MEDS: MIDAZOLAM HCL (*CRX) 2 MG/2 ML VIAL IV PUSH ×2 (10:48→13:01)
--- NOTE | 2022-12-16 10:49 | PCRCNOTE ---
Patient arrived from cath lab nurse in respiratory distress and agitated. RT was called for bipap but upon arrival Dr. Simeon made the decision to intubate patient. RT called for second RT for bedside, size 8.0 ET tube was prepared. Patient successfully intubated. CMV settings were set at VT of 500, rate of 20, peep of 10 and FiO2 of 100%. ABG to be obtain in one hour. ET tube exchanged due to major cuff leak, successful exchange of ET tube at 1045.
[2022-12-16 11:00] LABS: Basophils Percent Auto 0.4 % (0.2-1.2); Eosinophils Absolute Auto 0.1 K/mm3 (0-0.3); Eosinophils Percent Auto 0.6 % (0-4.4); Hematocrit 25.5 % (42.0-52.0); Hemoglobin 7.9 g/dL (14.0-18.0); Immature Granulocyte Absolute 0.02 K/mm3 (0.00-0.031); Immature Granulocyte Percent A 0.3 % (0-0.5); Lymphocytes Percent Auto 8.8 % (18.3-44.2); Mean Corpuscular Hemoglobin 32.4 pg (26-34); Mean Corpuscular Volume 104.5 fl (80-100); Mean Platelet Volume 10.4 fl (7.4-10.4); Monocytes Absolute Auto 0.4 K/mm3 (0.1-0.6); Neutrophils Absolute Auto 6.8 K/mm3 (1.3-6.7); Neutrophils Percent Auto 84.9 % (45.5-73.1); Platelet Count Result 151 k/mm3 (150-375); Red Blood Count 2.44 M/mm3 (4.6-6.20)
[2022-12-16 11:09] LABS: Lactic Acid Reflex 2.4 mmol/L (0.7-2.0)
[2022-12-16 11:11] LABS: Alanine Aminotransferase 26 U/L (6-50); Albumin Level 3.4 g/dL (3.5-5.1); Alkaline Phosphatase 77 U/L (38-126); Anion Gap 13 mmol/L (8-16); Aspartate Amino Transferase 32 U/L (17-59); Bilirubin,Total 0.6 mg/dL (0.2-1.3); Blood Urea Nitrogen 90 mg/dL (9-20); Calcium 8.6 mg/dL (8.4-10.2); Carbon Dioxide 27 mmol/L (22-30); Chloride 98 mmol/L (98-107); Estimated CRCL calculation 7 ml/min; Estimated Glomerular Filt Rate 4; Glucose 257 mg/dL (65-110); Magnesium 2.3 mg/dL (1.6-2.3); Phosphorus 6.5 mg/dL (2.5-4.5); Potassium 5.2 mmol/L (3.4-5.0); Sodium 138 mmol/L (137-145); Triglycerides 175 mg/dL (<150)
[2022-12-16 11:20] LABS: Partial Thromboplastin Time 60.5 SECONDS (22.3-36.8)
[2022-12-16] MEDS: ALBUMIN HUMAN 25% 25 GM/100 ML 200 ML IVPB (11:23)
[2022-12-16] MEDS: NOREPINEPHRINE 8 MG/D5W 250 ML 8 MG/250 ML BAG 18.75 MG IV CONT (11:24)
[2022-12-16] MEDS: FENTANYL 2,500MCG/NS250ML(*CRX 2,500 MCG/250 ML BAG IV CONT (11:24)
[2022-12-16] MEDS: MIDAZOLAM 100MG/NS 100ML(*CRX) 100 MG/100 ML BAG IV CONT (11:25)
--- NOTE | 2022-12-16 11:31 | PC.NURSE ---
Addendum entered by Brea Savage RN 12/16/22 11:32: levophed infusion paused as well r/t decreased blood pressure per verbal order from Dr. Simeon Original Note: 1130--propofol infusion paused r/t decreased blood pressure per verbal order from Dr. Simeon
--- NOTE | 2022-12-16 12:31 | P.PCNBED_ITS ---
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 Patient was also hypoxic. Decided to emergently intubate him Sedative: etomidate Paralytic: rocuronium Laryngoscope: fiber optic video scope Assist device used: fiber optic device ET tube size: 8 Tube secured depth (cm): 24 Tube secured location: lips Tube placement confirmation: visualized tube passing through cords, equal breath sounds bilaterally, no breath sounds over epigastrium and confirmation by capnometry Patient tolerated procedure: well and no complications Intubation complications: none Additional comments: Chest x-ray showed ET tube tip 3.4 cm above the bakari, diffuse bilateral airspace disease was unchanged. NG tube in the stomach, no effusions, no pneumothorax
[2022-12-16 12:33] LABS: Alveolar/Arterial O2 Gradient 337.3 mmHg; Carboxyhemoglobin 0.3 % THb (0-2.0); Fractional Inspired Oxygen 100 %; HCO3 ABG 25.5 mEq/l (22.0-26.0); Methemoglobin ABG 0.4 %THb (0-1.5); Oxygen Content ABG 12.8 %vol (16.0-22.0); Oxygen Saturation ABG 99.8 % (95.0-100.0); Oxyhemoglobin 97.9 % THb (90.0-100.0); PCO2 ABG 39.8 mmHg (35.0-45.0); PO2 ABG 335.9 mmHg (80.0-100.0); PO2 FiO2 Ratio Arterial Blood 3.36 %; Reduced Hemoglobin 1.4 %THb (0-5.0); Total Hemoglobin 8.6 g/dL (12.0-18.0); pH ABG 7.424 (7.350-7.450)
--- NOTE | 2022-12-16 12:34 | P.PCNBED_ITS ---
Procedures Central Line Placement Left Femoral: Central Line Date: 12/16/22 Central Line Time: 11:20 Discussed w/ the patient/family/POA,the placement of a central venous catheter, including its clinical necessity/indication & associated potential risks, benifits and alternatives.: Yes The patient/family/POA understand(s) and acknowledge(s) the need to proceed with central venous catheter insertion as an important element of the patient's clinical management.: Yes Consent: I have discussed with the patient and/or surrogate, the non-emergent placement of a central venous catheter, including its clinical necessity/indication and associated potential risks and complications. The patient and/or surrogate understand(s) and acknowledge(s) the need to proceed with central venous catheter insertion as an important element of the patient's clinical management. Time Out Performed: Yes Patient Position: supine Patient placed on monitor/pulse ox: Yes Provider Prep: mask, sterile gown, sterile gloves, Max. sterile barrier precautions and cap Central line prep: 2% Chlorhexidine scrub Local anesthesia used: lidocaine 1% Amount of anesthesia used (ml): 3 Sterile US Technique with sterile gel/sterile probe covers: Yes Central line lumen inserted: triple [place]: 12 Length (cm): 20 Depth of Insertion (cm): 19 Post Procedure: sutured in place, good blood return, all ports aspirated, flushed, capped, transparent dressing, hemostatic product, antimicrobial product, securement product and aseptic technique maintained throughout procedure Complications: none
--- NOTE | 2022-12-16 12:36 | P.PNCROSS_ITS ---
Event Note Event Note Event Note: Once patient arrived from the cardiac labor arbitrator, was significantly short of nazanin th, coarse breath sounds bilaterally on auscultation, diaphoretic, hypertensive with systolic blood pressures >200, just could not catch his breath. Is getting agitated, patient was intubated emergently. After intubation the respiratory therapist noted that he had a cuff leak, so I exchanged the ETT over bougie. Tube exchanger was uneventful, patient maintained his O2 sats at 100%. Vent settings of 500 tidal volume, rate of 20, peep of 10, 100% FiO2 Patient started on propofol will dropped his blood pressures with systolic in the 50s to 60s, Levophed was started, I tried the central line in the right IJ was able to get access but could not thread the wire, tried this x2 an aborted the procedure. Placed a left femoral vein central line with difficulty due to anatomy of the blood vessels. Post intubation ABGs reviewed, will decrease FiO2 to 50% in decrease rate to 18
[2022-12-16 12:40] LABS: Arterial Blood Gas PEEP 10 cmH2O; Arterial Blood Gas Tidal Volume 500 ml; Arterial Blood Gas Vent Mode CMV; Arterial Blood Gas Ventilator rate 20 /MIN; Device VENTILATOR; Modified Allen's Test Pass; Site Drawn LEFT RADIAL
--- NOTE | 2022-12-16 12:41 | PCRCNOTE ---
ABG obtained an hour late due to Dr. Simeon placing central line. ABG obtained at 1230 with results of pH 7.424, PCO2 39.8, PO2 335.9, HCO3 25.5. Gave Dr. Simeon the results and he verbally stated to decreased rate to 18 and decreased fiO2 to 50%.
--- NOTE | 2022-12-16 12:55 | PC.NURSE ---
Dr. Simeon at bedside. Pt. very agitated and coughing continuously. Verbal order to increase fentanyl to 150 mcg/hr, versed to 6 mg/hr and propofol to 15 mcg/kg/min. 2 mg IVP versed x 1 ordered as well.
[2022-12-16 13:57] LABS: Reflex Lactic Acid Yes or No Add Lactic
[2022-12-16] MEDS: CENTRAL LINE FLUSH 10 ML IV PUSH ×3 (14:30→20:13)
[2022-12-16] MEDS: ALBUTEROL SULFATE NEB 2.5 MG/3 ML INH INHALATION ×2 (14:50→20:39)
[2022-12-16] MEDS: IPRATROPIUM BR 0.02% INH SOLN 0.5 MG/2.5 ML VIAL INHALATION ×2 (14:50→20:39)
--- NOTE | 2022-12-16 14:59 | PCRCNOTE ---
Patient transported on vent to CT scan and back to ICU 4 with one RT, 2 nurses, transport person and RN student.
[2022-12-16 15:09] LABS: Lactic Acid 1.7 mmol/L (0.7-2.0)
[2022-12-16 15:46] LABS: Glucose Point of Care 212 mg/dl (65-105)
--- NOTE | 2022-12-16 16:40 | PM.IMPN ---
Progress Note: A&P Assessment and Plan (1) Chest pain: Qualifiers: Chest pain type: unspecified Qualified Code(s): R07.9 - Chest pain, unspecified Code(s): R07.9 - Chest pain, unspecified Status: Acute (2) ESRD on hemodialysis: Code(s): N18.6 - End stage renal disease; Z99.2 - Dependence on renal dialysis Status: Acute (3) Acute hyperkalemia: Code(s): E87.5 - Hyperkalemia Status: Acute (4) Hypertension: Code(s): I10 - Essential (primary) hypertension Status: Acute (5) SHEYLA on CPAP: Code(s): G47.33 - Obstructive sleep apnea (adult) (pediatric) Status: Acute (6) Diabetes mellitus type 1.5: Code(s): E13.9 - Other specified diabetes mellitus without complications Status: Acute (7) Anemia in chronic kidney disease, on chronic dialysis: Code(s): N18.6 - End stage renal disease; D63.1 - Anemia in chronic kidney disease; Z99.2 - Dependence on renal dialysis Status: Acute Plan 62-year-old male with history of end-stage renal disease on hemodialysis Friday, coronary artery disease with 2 coronary stents presented with chest pain substernal. Associated numbness in the left arm. Associated nausea diaphoresis shortness of breath. Noted to be hyperkalemic. Chest x-ray with pulmonary opacities which may reflect moderate pulmonary edema Non STEMI with typical/atypical chest pain along with positive troponin history of coronary artery disease with prior stent placement. Follows with project scheduler at [place] chest pain resolved with nitroglycerin however waxing and waning and was eventually placed on nitroglycerin drip. Status post cardiac catheterization 12/16/2022: PTCA of InStent LAD stenosis 12/16/2022 Acute hypoxic respiratory failure post cardiac catheterization placed on a mechanical ventilation treatment per ICU Hyperkalemia treated with Kayexalate insulin D50 in the ER type 2 diabetes SSI and home medication Hypertension Hyperlipidemia Coronary artery disease status post stents in the past End-stage renal disease on hemodialysis Friday Chronic anemia SHEYLA on CPAP Moderate aortic valve stenosis DVT prophylaxis on heparin drip Code status full code Subjective Date/time seen: 12/16/22 16:40 Interval history: Events noted. Patient was intubated abruptly after the catheterization. Patient currently intubated and sedated. Currently undergoing hemodialysis Review of Systems Review of Systems: ROS unobtainable: Yes unobtainable due to endotracheal tube, unobtainable due to medical condition and unobtainable due to mental status Exam Narrative: General: Not in acute distress intubated and sedated Neck:? Supple Respiratory:? Bilateral equal air entry Cardiac:? S1-S2 was normal, regular rate and rhythm, 3/6 murmur at the right upper sternal border Abdomen:? Soft, nondistended, normoactive bowel sounds Extremities:? Palpable pedal pulses, no edema Neuro:? Patient is sedated and intubated Skin:? Warm and dry Psych:? Could not be examined Objective Data Vital Signs Vital Signs: Vital Signs - 24 hr 12/15/22 17:15 12/15/22 17:38 12/15/22 18:00 Temperature 97 F L Pulse Rate 88 86 Respiratory Rate 16 Blood Pressure 164/71 H Pulse Oximetry 99 Oxygen Delivery Room Air Fraction of Inspired Oxygen 12/15/22 19:34 12/15/22 20:54 12/15/22 23:24 Temperature 97.5 F L 97.7 F Pulse Rate 88 90 85 Respiratory Rate 20 20 Blood Pressure 165/72 H 199/76 H Pulse Oximetry 97 97 Oxygen Delivery Fraction of Inspired Oxygen 12/15/22 20:00 12/15/22 22:00 12/15/22 20:00 Temperature Pulse Rate 84 82 Respiratory Rate Blood Pressure Pulse Oximetry Oxygen Delivery CPAP Fraction of Inspired Oxygen 12/16/22 00:00 12/16/22 00:00 12/16/22 01:43 Temperature Pulse Rate 84 100 Respiratory Rate Blood Pressure 157/73 H Pulse Oximetry 94
--- NOTE | 2022-12-16 17:00 | PM.CNNEP ---
Assessment and Plan Assessment and plan (1) End stage renal disease: Code(s): N18.6 - End stage renal disease Status: Chronic Assessment and Plan: HD today continue M/W/F outpatient dialysis schedule follow electrolytes, volume status, and clearance primary gis administrator = Ashish Vega MD (2) Chest pain: Qualifiers: Chest pain type: unspecified Qualified Code(s): R07.9 - Chest pain, unspecified Code(s): R07.9 - Chest pain, unspecified Status: Acute Assessment and Plan: as noted on admission transferred to ICU earlier this AM due increasing chest pain and requiring nitroglycerin infusion s/p cardiac catheterizaton with findings and intervention noted Cardiology following continue supportive therapy (3) Acute respiratory failure: Code(s): J96.00 - Acute respiratory failure, unspecified whether with hypoxia or hypercapnia Status: Acute Assessment and Plan: due to fluid overload/pulmonary edema precipitated by hypertensive urgency intubated and on mechanical ventilation fluid removal with dialysis yesterday limited due to hemodynamics plan DUF today and HD tomorrow for further fluid removal ventilator weaning as tolerated (4) Hypertension: Code(s): I10 - Essential (primary) hypertension Status: Acute Assessment and Plan: reasonable control at this time follow trend of hemodyamics (5) Anemia: Code(s): D64.9 - Anemia, unspecified Status: Chronic Assessment and Plan: partly due to ESRD and acute illness Epogen with HD follow trend of H/H (6) Diabetes mellitus type 1.5: Code(s): E13.9 - Other specified diabetes mellitus without complications Status: Chronic Assessment and Plan: follow accu-cheks glycemic control by hospitalists/intensivists I will continue follow patient with you while he remains hospitalized and make further recommendations as needed. Thank you for allowing me to participate in care this patient. History of Present Illness Reason for Consult Consult date: 12/16/22 Reason for consult: end stage renal disease Chief Complaint Chief complaint: Unstable Angina History of Present Illness Narrative: Most of the information I have obtained is from review of electronic medical record and discussion with the physician/nurses involved in the patient's care as the patient is unable to provide me with any history as he is currently intubated and on mechanical ventilation. The patient was seen earlier today and currently given the events that have occurred since this morning. The patient is a 62-year-old male with a past medical history as outlined below who presented to [facility] Emergency Room with complaints of chest pain. The patient is visiting from out of town to see his son who is currently enrolled at [employer] [facility]. He apparently has been having intermittent chest discomfort for the last month but then today, while climbing the stairs to his son's apartment he suddenly had more significant/severe chest pain with radiation to his left arm in association with dizziness, near-syncope, and vomiting. EMS was called and he was subsequently transferred to their emergency room for further assessment. By the time of his arrival to the emergency room, his chest pain had improved with just rest and seem to completely resolved after 1 sublingual nitroglycerin. Upon further assessment, he was noted to be quite hyperglycemic. Routine blood test demonstrated labs consistent with his known history of end-stage renal disease but his potassium was elevated. He apparently has a known history of chronic hyperkalemia and is on outpatient Lokelma therapy on his non-dialysis days. He received medical management for his hyperkalemia in emergency room and given his significant risk factors for acute coronary syndrome, he was admitted to the hospital for further trip
--- NOTE | 2022-12-16 17:00 | P.CONNP_ITS ---
Assessment and Plan Assessment and plan (1) End stage renal disease: Code(s): N18.6 - End stage renal disease Status: Chronic Assessment and Plan: * HD today * continue M/W/F outpatient dialysis schedule * follow electrolytes, volume status, and clearance * primary securities clerk = Ashish Vega MD (2) Chest pain: Qualifiers: Chest pain type: unspecified Qualified Code(s): R07.9 - Chest pain, unspecified Code(s): R07.9 - Chest pain, unspecified Status: Acute Assessment and Plan: * as noted on admission * transferred to ICU earlier this AM due increasing chest pain and requiring nitroglycerin infusion * s/p cardiac catheterizaton with findings and intervention noted * Cardiology following * continue supportive therapy (3) Acute respiratory failure: Code(s): J96.00 - Acute respiratory failure, unspecified whether with hypoxia or hypercapnia Status: Acute Assessment and Plan: * due to fluid overload/pulmonary edema precipitated by hypertensive urgency * intubated and on mechanical ventilation * fluid removal with dialysis yesterday limited due to hemodynamics * plan DUF today and HD tomorrow for further fluid removal * ventilator weaning as tolerated (4) Hypertension: Code(s): I10 - Essential (primary) hypertension Status: Acute Assessment and Plan: * reasonable control at this time * follow trend of hemodyamics (5) Anemia: Code(s): D64.9 - Anemia, unspecified Status: Chronic Assessment and Plan: * partly due to ESRD and acute illness * Epogen with HD * follow trend of H/H (6) Diabetes mellitus type 1.5: Code(s): E13.9 - Other specified diabetes mellitus without complications Status: Chronic Assessment and Plan: * follow accu-cheks * glycemic control by hospitalists/intensivists I will continue follow patient with you while he remains hospitalized and make further recommendations as needed. Thank you for allowing me to participate in care this patient. History of Present Illness Reason for Consult Consult date: 12/16/22 Reason for consult: end stage renal disease Chief Complaint Chief complaint: Unstable Angina History of Present Illness Narrative: Most of the information I have obtained is from review of electronic medical record and discussion with the physician/nurses involved in the patient's care as the patient is unable to provide me with any history as he is currently intubated and on mechanical ventilation. The patient was seen earlier today and currently given the events that have occurred since this morning. The patient is a 62-year-old male with a past medical history as outl ined below who presented to [facility] Emergency Room with complaints of chest pain. The patient is visiting from out of town to see his son who is currently enrolled at [facility] [employer]. He apparently has been having intermittent chest discomfort for the last month but then today, while climbing the stairs to his son's apartment he suddenly had more significant/severe chest pain with radiation to his left arm in association with dizziness, near-syncope, and vomiting. EMS was called and he was subsequently transferred to their emergency room for further assessment. By the time of his arrival to the emergency room, his chest pain had improved with just rest and seem to completely resolved after 1 sublingual nitroglycerin. Upon further assessment, he was noted to be quite hyperglycemic. Routine blood test demonstrated
[2022-12-16] MEDS: INSULIN ASPART (*BKC) 100 UNITS/ML SUB-Q (18:13)
[2022-12-16] MEDS: EPOETIN ALFA-EPBX 10,000 UNITS/ML VIAL 10000 UNITS IV PUSH (18:43)
[2022-12-16] MEDS: ROSUVASTATIN 10 MG TABLET PO (20:13)
[2022-12-16] MEDS: MINERAL OIL/WHITE PETROLATUM OINTMENT 1 APPLIC EACH EYE (20:13)
[2022-12-16 20:38] LABS: Glucose Point of Care 138 mg/dl (65-105)
[2022-12-16 20:41] LABS: Hematocrit 24.4 % (42.0-52.0); Hemoglobin 7.6 g/dL (14.0-18.0); Mean Corpuscular HGB Conc 31.1 g/dl (32-36); Mean Corpuscular Hemoglobin 32.6 pg (26-34); Mean Corpuscular Volume 104.7 fl (80-100); Mean Platelet Volume 9.4 fl (7.4-10.4); Platelet Count Result 162 k/mm3 (150-375); Red Blood Count 2.33 M/mm3 (4.6-6.20); Red Cell Distribution Width 14.5 % (11.5-14.5); White Blood Count 13.7 K/mm3 (4.5-10.0)
[2022-12-16 22:05] LABS: Band Neutrophils Percent 11 % (0-6); Hypochromasia 1+ (NORMAL); Lymphocytes Absolute Manual 0.41 K/mm3 (1.1-4.5); Monocytes Absolute Manual 0.27 K/mm3 (0.1-0.90); Monocytes Percent Manual 2 % (3-9); Neutrophils Absolute Manual 13.01 K/mm3 (1.3-6.7); Neutrophils Percent Manual 84 % (46-73); Platelet Estimate Adequate (Adequate); Schistocytes None Seen (NORMAL); Total Cells Counted 100
[2022-12-16 22:06] LABS: Anisocytosis 1+ (NORMAL)
[2022-12-16 23:44] LABS: Glucose Point of Care 131 mg/dl (65-105)
[2022-12-16] MEDS: PROPOFOL IV EMULSION 100 ML 3.15 MG IV CONT (23:46)
[2022-12-17] VITALS (64 sets, daily range): BP systolic 84–150; BP diastolic 46–92; PULSE 76–121; RESP 18–22; TEMP 36.9–38.8; O2SAT 99–100
--- NOTE | 2022-12-17 | ECHO_ITS ---
Patient Info Name: Juanito Marroquin Age: 62 years : 1960 Gender: Male Ht: 74 in Wt: 200 lbs BSA: 2.18 m2 HR: 91 bpm BP: 117 / 67 mmHg Heart Rhythm: Sinus Rhythm Technical Quality: Fair Exam Date: 12/17/2022 1:24 PM Exam Location: [facility] Pulmonary Exam Room: ICU4 Patient Status: Inpatient Admit Date: 12/16/2022 Staff Ordering Physician: Kirit Mooney APRN Child Protective Investigator: Francy Romero RDCS Attending Provider: Mitzy Beltrán MD Referring Physician: Vinicio ADKINS; Exam Type: CA echo dop color flow w con Study Info Indications - CHEST PAIN S/P CATH Complete two-dimensional, color flow and Doppler transthoracic echocardiogram is performed with contrast to opacify the left ventricle and to improve the deliniation of the left ventricle endocardial borders. Contrast/Agitated Saline Contrast/Ag. Saline: Definity Amount: 2.00 ml Administered By: Francy Romero [facility] Existing IV Access: Yes IV Access Condition: patent with no signs of infiltration Summary 1. Normal left ventricular size with moderate concentric hypertrophy. Hyperdynamic left ventricular systolic function with ejection fraction greater than 70%. Grade 2 diastolic dysfunction is present no segmental wall motion abnormalities. 2. Moderate aortic stenosis with a Vmax of 3.1 M/S, mean gradient 21 mmHg, and LILLY 1.4-1.5 cm2. Moderate aortic valve calcification. 3. Minor increased late peaking intraventricular flow velocity with a peak LVOT of 1.3 M/S, corresponding to no significant intraventricular gradient. 4. There is mild tricuspid valve regurgitation. 5. No pulmonary hypertension, estimated pulmonary arterial systolic pressure is 25 mmHg. 6. Left atrial chamber dimension is moderately enlarged. 7. Normal sinus rhythm. Left Ventricle Left ventricular chamber dimension is normal. Left ventricular systolic function is hyperdynamic, estimated at >70%. There is moderately increased left ventricular wall thickness. Left ventricular septal wall motion is normal. The left ventricular diastolic function is grade II diastolic dysfunction. Right Ventricle Right ventricular chamber dimension is normal. Right ventricular systolic function is normal. Left Atria Left atrial chamber dimension is moderately enlarged. Right Atria Right atrial chamber dimension is normal. Aortic Valve The aortic valve is trileaflet. There is no aortic valve sclerosis. There is moderate aortic valve stenosis with a peak velocity of 308.17 cm/s, mean gradient of 21 mmHg, and aortic valve area of 1.53 cm2. There is no aortic valve regurgitation. There is moderate aortic valve calcification. Pulmonic Valve The pulmonic valve is normal. There is no pulmonic valve stenosis. There is no pulmonic regurgitation. Mitral Valve The mitral valve has normal leaflets. There is no mitral valve stenosis. There is no mitral valve regurgitation. Tricuspid Valve The tricuspid valve leaflets are normal. There is no significant tricuspid valve stenosis. There is mild tricuspid valve regurgitation. No pulmonary hypertension, estimated pulmonary arterial systolic pressure is 25 mmHg. Pericardium/Pleural The pericardium appears normal. There is no pericardial effusion. Inferior Vena Cava Normal inferior vena cava with >50% collapse upon inspiration consistent with Empty right atrial pressure, 10 mmHg. Aorta The aortic root size at the sinus of Valsalva is normal. The prox ascending aorta size is normal. Left Ventricular Outflow Tract
[2022-12-17] MEDS: ALBUTEROL SULFATE NEB 2.5 MG/3 ML INH INHALATION ×4 (01:37→19:13)
[2022-12-17] MEDS: IPRATROPIUM BR 0.02% INH SOLN 0.5 MG/2.5 ML VIAL INHALATION ×4 (01:37→19:13)
[2022-12-17] MEDS: FENTANYL 2,500MCG/NS250ML(*CRX 2,500 MCG/250 ML BAG 12.5 MCG IV CONT (04:16)
[2022-12-17 04:39] LABS: Basophils Absolute Auto 0.1 K/mm3 (0.0-0.1); Basophils Percent Auto 0.5 % (0.2-1.2); Eosinophils Absolute Auto 0.1 K/mm3 (0-0.3); Eosinophils Percent Auto 0.5 % (0-4.4); Hematocrit 22.3 % (42.0-52.0); Immature Granulocyte Absolute 0.04 K/mm3 (0.00-0.031); Immature Granulocyte Percent A 0.4 % (0-0.5); Lymphocytes Absolute Auto 0.58 K/mm3 (0.9-3.2); Lymphocytes Percent Auto 5.9 % (18.3-44.2); Mean Corpuscular HGB Conc 30.5 g/dl (32-36); Mean Corpuscular Hemoglobin 32.1 pg (26-34); Mean Corpuscular Volume 105.2 fl (80-100); Mean Platelet Volume 9.7 fl (7.4-10.4); Monocytes Absolute Auto 0.6 K/mm3 (0.1-0.6); Monocytes Percent Auto 5.6 % (2.6-8.5); Neutrophils Absolute Auto 8.6 K/mm3 (1.3-6.7); Neutrophils Percent Auto 87.1 % (45.5-73.1); Platelet Count Result 125 k/mm3 (150-375); Red Blood Count 2.12 M/mm3 (4.6-6.20); Red Cell Distribution Width 14.8 % (11.5-14.5); White Blood Count 9.8 K/mm3 (4.5-10.0)
[2022-12-17 04:41] LABS: Hemoglobin 6.8 g/dL (14.0-18.0)
[2022-12-17 04:49] LABS: INR 1.2; Prothrombin Time 15.4 Seconds (11.1-14.7)
[2022-12-17 04:50] LABS: Partial Thromboplastin Time 34.6 SECONDS (22.3-36.8)
[2022-12-17 04:51] LABS: Alanine Aminotransferase 26 U/L (6-50); Albumin Level 3.9 g/dL (3.5-5.1); Alkaline Phosphatase 73 U/L (38-126); Anion Gap 9 mmol/L (8-16); Aspartate Amino Transferase 29 U/L (17-59); Bilirubin,Total 0.6 mg/dL (0.2-1.3); Blood Urea Nitrogen 38 mg/dL (9-20); Calcium 9.1 mg/dL (8.4-10.2); Carbon Dioxide 31 mmol/L (22-30); Chloride 98 mmol/L (98-107); Creatine Kinase 203 U/L (55-170); Estimated CRCL calculation 11 ml/min; Estimated Glomerular Filt Rate 7; Glucose 169 mg/dL (65-110); Lactic Acid Reflex 1.8 mmol/L (0.7-2.0); Phosphorus 6.6 mg/dL (2.5-4.5); Potassium 5.2 mmol/L (3.4-5.0); Sodium 138 mmol/L (137-145)
--- NOTE | 2022-12-17 05:11 | ECG_ITS ---
Measurements Intervals [place] Rate: 100 P: 15 DC: 136 QRS: 32 QRSD: 94 T: 37 QT: 353 QTc: 456 Interpretive Statements SINUS TACHYCARDIA NONSPECIFIC T-WAVE ABNORMALITY ABNORMAL RHYTHM ECG WARNING: DATA QUALITY MAY AFFECT INTERPRETATION COMPARED TO ECG 12/16/2022 04:56:10 SINUS TACHYCARDIA NOW PRESENT T-WAVE ABNORMALITY NOW PRESENT Electronically Signed On 12-17-2022 19:54:09 CDT by Cecilia Shahid M.D.
--- NOTE | 2022-12-17 05:27 | PC.NURSE ---
Patient's hemoglobin resulted at 6.8. Dr. Simeon notified and orders received to transfuse 1 unit PRBCs. Consent received from to transfuse PRBCs due to patient's being intubated & sedated. Second nurse verification received by CLYDE Quintanilla. updated on patient's status. No further questions at this time. Will continue to monitor.
[2022-12-17] MEDS: CENTRAL LINE FLUSH 10 ML IV PUSH ×4 (05:35→20:35)
[2022-12-17 05:38] LABS: Alveolar/Arterial O2 Gradient 177.3 mmHg; Base Excess ABG 3.6 mEq/l (+/-2.0); Carboxyhemoglobin 0.3 % THb (0-2.0); Fractional Inspired Oxygen 50 %; HCO3 ABG 29.4 mEq/l (22.0-26.0); Methemoglobin ABG 0.4 %THb (0-1.5); Oxygen Content ABG 10.3 %vol (16.0-22.0); Oxygen Saturation ABG 98.2 % (95.0-100.0); Oxyhemoglobin 96.5 % THb (90.0-100.0); PCO2 ABG 52.7 mmHg (35.0-45.0); PO2 ABG 119.9 mmHg (80.0-100.0); Reduced Hemoglobin 2.8 %THb (0-5.0); pH ABG 7.365 (7.350-7.450)
[2022-12-17 05:39] LABS: Total Hemoglobin 7.4 g/dL (12.0-18.0)
[2022-12-17 05:40] LABS: Arterial Blood Gas PEEP 10 cmH2O; Arterial Blood Gas Tidal Volume 500 ml; Arterial Blood Gas Vent Mode CMV; Arterial Blood Gas Ventilator rate 18 /MIN; Device VENTILATOR; Modified Allen's Test Pass; Site Drawn LEFT RADIAL
[2022-12-17] MEDS: SODIUM CHLORIDE 0.9% IV 250 ML 30 ML IV CONT (05:50)
--- NOTE | 2022-12-17 09:01 | WPDINTPN ---
Progress Note: A&P Assessment and Plan (1) Acute respiratory failure: Code(s): J96.00 - Acute respiratory failure, unspecified whether with hypoxia or hypercapnia Status: Acute Assessment and Plan: On presentation patient had bilateral pulmonary opacities suggestive of pulmonary edema 12/16 he was intubated post cardiac catheterization and chest x-ray showed worsening of diffuse bilateral interstitial edema although pneumonia could not be excluded CT scan showed 2. Small bilateral pleural effusions with large region of consolidation in the right lower lobe and a severe patchy airspace opacity left lower lobe which is concerning for pneumonia. Acute respiratory failure secondary to pulmonary edema and possible community-acquired pneumonia but this also could be an aspiration during or post catheterization or during intubation since intubation was emergent. Check COVID influenza PCR, sputum culture, blood culture, procalcitonin level Start empiric Levaquin and Flagyl ABG and chest x-ray reviewed Ventilator settings reviewed (2) Chest pain: Qualifiers: Chest pain type: unspecified Qualified Code(s): R07.9 - Chest pain, unspecified Code(s): R07.9 - Chest pain, unspecified Status: Acute Assessment and Plan: Patient presented with chest pain with nausea, vomiting, diaphoresis and radiation to the left arm. -patient was transferred to the ICU from intermediate Unit on early hours of 12/16/2022 for increasing chest pain and requiring nitroglycerin infusion Cardiac catheterization 1.? ? Coronary artery disease with high-grade 95-99% in stent proximal LAD restenoses in this device that was deployed in August of 2019. 2.? ? Small vessel diffuse disease in the remainder of the LAD 3. ? severe hypertension 4. ? moderate disease of 80% stenosis in a small to medium-sized posterolateral branch of the RCA 5. ? patient known to have moderate aortic stenosis this was not evaluated in the clinical laboratory manager today 6. ? right femoral groin puncture site hematoma as a complication of this procedure resulting from the vessel having to be punctured/accessed twice Continue aspirin Plavix and statin Hold beta-sakshi due to hypotension Echocardiogram pending (3) ESRD on hemodialysis: Code(s): N18.6 - End stage renal disease; Z99.2 - Dependence on renal dialysis Status: Acute Assessment and Plan: Nephrology is following Patient was dialyzed yesterday and is again getting ultrafiltration done today (4) Hematoma: Code(s): T14.8XXA - Other injury of unspecified body region, initial encounter Status: Acute Assessment and Plan: Patient double hematoma from arterial access site after cardiac catheterization CT scan postprocedure showed IMPRESSION: 1.? Prominent stranding in the subcutaneous fat at the right groin and anteromedial proximal most right thigh likely representing hematoma related to recent arterial access with right common femoral artery vascular access sheath remaining in place. No pseudoaneurysm or active contrast extravasation. Status post transfusion 1 unit PRBC. Hold any anticoagulation acceptable antiplatelet therapy Monitor and transfuse PRBC as needed (5) Acute hyperkalemia: Code(s): E87.5 - Hyperkalemia Status: Acute Assessment and Plan: Patient is again getting dialysis today On Lokelma (6) Hypertension: Code(s): I10 - Essential (primary) hypertension Status: Acute Assessment and Plan: Antihypertensive medications on hold as patient was on Levophed (7) SHEYLA on CPAP: Code(s): G47.33 - Obstructive sleep apnea (adult) (pediatric) Status: Acute Assessment and Plan: Patient is now intubated (8) Diabetes mellitus type 1.5: Code(s): E13.9 - Other specified diabetes mellitus without complications Status: Acute Assessment and Plan: Continue Accu-Cheks, sliding scale and Lantus (9) Anemia in chronic kidney
--- NOTE | 2022-12-17 09:36 | PM.PNNEP ---
Progress Note: A&P Assessment and Plan (1) End stage renal disease: Code(s): N18.6 - End stage renal disease Status: Chronic Assessment and Plan: HD tomorrow continue M/W/F outpatient dialysis schedule follow electrolytes, volume status, and clearance primary child life therapist = Ashish Vega MD (2) Chest pain: Qualifiers: Chest pain type: unspecified Qualified Code(s): R07.9 - Chest pain, unspecified Code(s): R07.9 - Chest pain, unspecified Status: Acute Assessment and Plan: as noted on admission transferred to ICU on 12/16 due increasing chest pain and requiring nitroglycerin infusion s/p cardiac catheterizaton with findings and intervention noted Cardiology following continue supportive therapy (3) Hyperkalemia: Code(s): E87.5 - Hyperkalemia Status: Chronic Assessment and Plan: chronic issue/problems on [facility] on non-dialysis days as an outpatient follow trend of K+ (4) Acute respiratory failure: Code(s): J96.00 - Acute respiratory failure, unspecified whether with hypoxia or hypercapnia Status: Acute Assessment and Plan: due to fluid overload/pulmonary edema precipitated by hypertensive urgency intubated and on mechanical ventilation fluid removal with dialysis on 12/16 limited due to hemodynamics DUF today for further fluid removal ventilator weaning as tolerated (5) Hypertension: Code(s): I10 - Essential (primary) hypertension Status: Acute Assessment and Plan: reasonable control at this time follow trend of hemodyamics (6) Anemia: Code(s): D64.9 - Anemia, unspecified Status: Chronic Assessment and Plan: partly due to ESRD and acute illness Epogen with HD PRBC transfusion per protocol follow trend of H/H (7) Diabetes mellitus type 1.5: Code(s): E13.9 - Other specified diabetes mellitus without complications Status: Chronic Assessment and Plan: follow accu-cheks glycemic control by hospitalists/intensivists Discussed case with Dr. Ignacio. Will continue to follow. Subjective Date/time seen: 12/17/22 09:36 Interval history: Follow-up for end stage renal disease on hemodialysis. Tolerated dialysis yesterday but fluid removal was limited by hemodynamics; tolerating dry ultrafiltration at the time of my visit (seen on DUF at 9:25AM); remains intubated/sedated and on mechanical ventilation; off vasopressor therapy; no apparent distress noted. Exam Narrative: General: WD/WN male intubated/sedated and on mechanical ventilatio Heart: normal S1 and S2; no rub Lungs: coarse breath sounds noted Abdomen: soft, nontender, nondistended, positive bowel sounds Extremities: no cyanosis or clubbing; trace edema Skin: warm and dry Objective Data Vital Signs Vital Signs: Vital Signs Temp Pulse Resp BP Pulse Ox O2 Del Method FiO2 12/17/22 08:35 102 H 18 12/17/22 08:00 99.7 F H 96 18 150/73 H 100 12/17/22 08:00 96 18 100 Mechanical Ventilation 50 12/17/22 08:00 96 12/17/22 10:30 91 118/72 12/17/22 10:15 89 104/62 12/17/22 10:00 92 126/68 12/17/22 09:45 93 105/58 L 12/17/22 09:30 99 128/69 12/17/22 09:15 100 138/71 12/17/22 09:00 102 H 132/66 12/17/22 08:50 106 H 140/67 12/17/22 08:27 50 12/17/22 08:35 102 H 146/79 H 12/17/22 08:27 100 136/67 12/17/22 07:45 99.6 F 99 20 146/73 H 100 12/17/22 08:15 98 20 12/17/22 08:15 100 Mechanical Ventilation 50 12/17/22 08:15 98 100 Mechanical Ventilation 50 12/17/22 07:51 99.7 F H 100 22 H 146/73 H 100 12/17/22 07:12 99.6 F 90 18 143/66 H 100 12/17/22 07:12 99.6 F 90 18 143/66 H 100 12/17/22 04:30 88 100 Mechanical Ventilation 50 12/17/22 06:16 84 18 12/17/22 06:15 8
--- NOTE | 2022-12-17 09:36 | P.PNNP_ITS ---
Progress Note: A&P Assessment and Plan (1) End stage renal disease: Code(s): N18.6 - End stage renal disease Status: Chronic Assessment and Plan: * HD tomorrow * continue M/W/F outpatient dialysis schedule * follow electrolytes, volume status, and clearance * primary molecular biology scientist = Ashish Vega MD (2) Chest pain: Qualifiers: Chest pain type: unspecified Qualified Code(s): R07.9 - Chest pain, unspecified Code(s): R07.9 - Chest pain, unspecified Status: Acute Assessment and Plan: * as noted on admission * transferred to ICU on 12/16 due increasing chest pain and requiring nitroglycerin infusion * s/p cardiac catheterizaton with findings and intervention noted * Cardiology following * continue supportive therapy (3) Hyperkalemia: Code(s): E87.5 - Hyperkalemia Status: Chronic Assessment and Plan: * chronic issue/problems * on [facility] on non-dialysis days as an outpatient * follow trend of K+ (4) Acute respiratory failure: Code(s): J96.00 - Acute respiratory failure, unspecified whether with hypoxia or hypercapnia Status: Acute Assessment and Plan: * due to fluid overload/pulmonary edema precipitated by hypertensive urgency * intubated and on mechanical ventilation * fluid removal with dialysis on 12/16 limited due to hemodynamics * DUF today for further fluid removal * ventilator weaning as tolerated (5) Hypertension: Code(s): I10 - Essential (primary) hypertension Status: Acute Assessment and Plan: * reasonable control at this time * follow trend of hemodyamics (6) Anemia: Code(s): D64.9 - Anemia, unspecified Status: Chronic Assessment and Plan: * partly due to ESRD and acute illness * Epogen with HD * PRBC transfusion per protocol * follow trend of H/H (7) Diabetes mellitus type 1.5: Code(s): E13.9 - Other specified diabetes mellitus without complications Status: Chronic Assessment and Plan: * follow accu-cheks * glycemic control by hospitalists/intensivists Discussed case with Dr. Ignacio. Will continue to follow. Subjective Date/time seen: 12/17/22 09:36 Interval history: Follow-up for end stage renal disease on hemodialysis. Tolerated dialysis yesterday but fluid removal was limited by hemodynamics; tolerating dry ultrafiltration at the time of my visit (seen on DUF at 9:25AM); remains intubated/sedated and on mechanical ventilation; off vasopressor therapy; no apparent distress noted. Exam Narrative: General: WD/WN male intubated/sedated and on mechanical ventilatio Heart: normal S1 and S2; no rub Lungs: coarse breath sounds noted Abdomen: soft, nontender, nondistended, positive bowel sounds Extremities: no cyanosis or clubbing; trace edema Skin: warm and dry Objective Data Vital Signs Vital Signs: Vital Signs Temp Pulse Resp BP Pulse Ox O2 Del Method FiO2 12/17/22 08:35 102 H 18 12/17/22 08:00 99.7 F H 96 18 150/73 H 100 12/17/22 08:00 96 18 100 Mechanical Ventilation 50 12/17/22 08:00 96 12/17/22 10:30 91 118/72 12/17/22 10:15 89 104/62 12/17/22 10:00 92 126/68 12/17/22 09:45 93 105/58 L 12/17/22 09:30 99 128/69
[2022-12-17] MEDS: MIDAZOLAM 100MG/NS 100ML(*CRX) 100 MG/100 ML BAG IV CONT (10:32)
[2022-12-17 10:51] LABS: Procalcitonin 2.5 ng/mL
--- NOTE | 2022-12-17 11:15 | PCNFU ---
Nutrition Follow-Up Complete: Increased protein energy needs related to mechanical ventilation as evidenced by need for full tube feeding goal: Meet estimated protein energy needs Patient is progressing towards goal. We will continue current goal. Pt current nutrition is Nepro at 50 ml/hr. Last recorded weight is 104.4 kg, stable. Bowel Motility:+Bm reported 12/15 Labs Reviewed:Cr 7.8,BUN 38, K 5.2,PO4 6.6,Glu 169 Meds Noted:Fentanyl, Versed, Levophed Skin: WNL Additional Notes:Patient remains on mechanical vent. Tube feedings starting of Nepro at 20 ml/hr goal rate at 50 ml/hr with Prosource BID. Total Nutrition 2140 kcals/129 gms protein/727 ml water. Meeting 100% kcal and protein needs. Flush 30 ml q 4 hours. Monitor labs, plan of care, tube feeding tolerance, stool patterns, weights Follow daily in ICU. Reassess Friday and Friday
[2022-12-17 11:49] LABS: Influenza A QL RT-PCR Negative (Negative); Influenza B QL RT-PCR Negative (Negative); RSV RNA, RT-PCR Negative (Negative); SARS-CoV-2 RNA PCR Negative (Negative)
[2022-12-17] MEDS: levoFLOXacin 750 MG/D5W 150 ML 750 MG/150 ML BAG 100 MG IVPB (11:51)
[2022-12-17] MEDS: metroNIDAZOLE 500 MG/ISO 100ML 500 MG/100 ML BAG 100 MG IVPB ×2 (11:51→20:35)
[2022-12-17] MEDS: SODIUM ZIRCONIUM CYCLOSILICATE 10 GM POWD.PACK FEED TUBE (11:52)
[2022-12-17] MEDS: PANTOPRAZOLE SODIUM IV 40 MG VIAL IV PUSH ×2 (11:52→20:34)
[2022-12-17] MEDS: MINERAL OIL/WHITE PETROLATUM OINTMENT 1 APPLIC EACH EYE ×2 (11:52→20:35)
[2022-12-17] MEDS: ASPIRIN 81 MG CHEWABLE TABLET PO (11:52)
[2022-12-17] MEDS: CLOPIDOGREL BISULFATE 75 MG TABLET PO (11:52)
[2022-12-17 12:53] LABS: Glucose Point of Care 224 mg/dl (65-105)
[2022-12-17] MEDS: INSULIN ASPART (*BKC) 100 UNITS/ML SUB-Q (12:56)
[2022-12-17] MEDS: PERFLUTREN LIPID MICROSPHERES 1.5 ML VIAL DILUTED TO 10 ML TOTAL VOLUME IV PUSH (13:30)
--- NOTE | 2022-12-17 14:15 | PM.PNCARD ---
Progress Note: A&P Assessment and Plan (1) Chest pain: Qualifiers: Chest pain type: unspecified Qualified Code(s): R07.9 - Chest pain, unspecified Code(s): R07.9 - Chest pain, unspecified Status: Acute Assessment and Plan: Unstable angina secondary to restenosis of previously placed LAD stent which was addressed with balloon angioplasty with a good anatomical result. Continue ASA, statin, Plavix Continue risk factor modification for CAD He did have a hematoma following LHC yesterday and Hgb 6.8 this morning from 7.6. Rec'd 1u PRBC's this a.m. 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 Cath images sent. We will continue to follow (2) ESRD on hemodialysis: Code(s): N18.6 - End stage renal disease; Z99.2 - Dependence on renal dialysis Status: Acute Assessment and Plan: On dialysis. Nephrology following (3) Acute respiratory failure: Code(s): J96.00 - Acute respiratory failure, unspecified whether with hypoxia or hypercapnia Status: Acute Assessment and Plan: Flash pulmonary edema and acute hypoxic respiratory failure post cardiac catheterization now mechanically ventilated. Poss. pneumonia? Abx started. Management per Critical Care. 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 Review of Systems Constitutional: Constitutional: Reports lethargy Eyes: Eyes: Reports no additional eye complaints ENT: Reports system reviewed and no additional complaints, except as documented Cardiovascular: Cardiovascular: Reports as per HPI and Reports chest pain Respiratory: Respiratory: Reports no additional respiratory complaints Gastrointestinal: Gastrointestinal: Reports no additional gastrointestinal complaints Musculoskeletal: Musculoskeletal: Reports no additional musculoskeletal complaints Integumentary/Breasts: Skin/Breast: Reports system reviewed and no additional complaints, except as docu Neurologic: Reports system reviewed and no additional complaints, except as documented Endocrine: Endocrine: Reports no additional endocrine complaints Hematologic/Lymphatic: Hematologic/Lymphatic: Reports no additional hematologic/lymphatic complaints Allergic/Immunologic: Allergic/Immunologic: Reports no additional allergic/immunologic complaints Exam Const: General: comfortable, no acute distress and ill appearing acutely Other: Intubated HENMT: Mouth: Yes moist mucous membranes Other: OETT in place Eyes: Sclera: sclerae normal Neck: Neck: supple and no JVD Other: Carotid pulses are intact bilaterally Resp: Effort & Inspection: normal respiratory effort Auscultation: clear to auscultation bilaterally Other: No rales, wheezes, rhonchi anteriorly Cardio: Rate: tachycardic Rhythm: regular rhythm Heart sounds: Murmur heart sound present systolic GI: Auscultation: normal bowel sounds Skin: General skin exam: normal color Other: R groin arterial insertion site with no bleeding, surrounding skin soft, some ecchymosis Neuro: Other: Sedated Extrem: General: normal to inspection Other: Distal pulses are palpable but 1/4 Objective Data Vital Signs Vital Signs: Vital Signs - 24 hr 12/16/22 14:51 12/16/22 14:56 12/16/22 14:58 Temperature Pulse Rate 76 79 79 Respiratory Rate 18 18 Blood Pressure Pulse Oximetry 97 Oxygen Delivery Mechanical Ventilation Fraction of Inspired Oxygen 50 12/16/22 15:47 12/16/22 16:00 12/16/22 16:00 Temperature 36.6 C 36.7 C Pulse Rate 91 90 92 Respiratory Rate 16 18 Blood Pressure 151/66 H 156/70 H Pulse Oximetry 100 Oxygen Delivery Fraction of Inspired Oxygen 12/16/22 16:00 1
--- NOTE | 2022-12-17 14:32 | IVDEFINITY ---
Prior to administration of IV Definity the patient was educated on the risks and benefits of the imaging enhancing agent including potential adverse side effects. The patient verbalized understanding. Allergies were verified. No exclusion criteria were identified and at least one of the following inclusion criteria were met: 1) physician request, 2) patient technically difficult to image (per the [place] [employer]ocardi[employer] guidelines of two or more segments not discernable within the apical view), or 3) questionable left ventricular function. ?
--- NOTE | 2022-12-17 15:16 | PM.IMPN ---
Progress Note: A&P Assessment and Plan (1) Chest pain: Qualifiers: Chest pain type: unspecified Qualified Code(s): R07.9 - Chest pain, unspecified Code(s): R07.9 - Chest pain, unspecified Status: Acute (2) ESRD on hemodialysis: Code(s): N18.6 - End stage renal disease; Z99.2 - Dependence on renal dialysis Status: Acute (3) Acute hyperkalemia: Code(s): E87.5 - Hyperkalemia Status: Acute (4) Hypertension: Code(s): I10 - Essential (primary) hypertension Status: Acute (5) SHEYLA on CPAP: Code(s): G47.33 - Obstructive sleep apnea (adult) (pediatric) Status: Acute (6) Diabetes mellitus type 1.5: Code(s): E13.9 - Other specified diabetes mellitus without complications Status: Chronic (7) Anemia in chronic kidney disease, on chronic dialysis: Code(s): N18.6 - End stage renal disease; D63.1 - Anemia in chronic kidney disease; Z99.2 - Dependence on renal dialysis Status: Acute Plan 62-year-old male with history of end-stage renal disease on hemodialysis Friday, coronary artery disease with 2 coronary stents presented with chest pain substernal. Associated numbness in the left arm. Associated nausea diaphoresis shortness of breath. Noted to be hyperkalemic. Chest x-ray with pulmonary opacities which may reflect moderate pulmonary edema Non STEMI with typical/atypical chest pain along with positive troponin history of coronary artery disease with prior stent placement. 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 Status post cardiac catheterization 12/16/2022: PTCA of InStent LAD stenosis 12/16/2022 Acute hypoxic respiratory failure post cardiac catheterization placed on a mechanical ventilation treatment per ICU related to flash pulmonary edema. Underwent dialysis 12/16 and repeat dialysis on 12/17 chest x-ray improving Hyperkalemia treated with Kayexalate insulin D50 in the ER type 2 diabetes SSI and home medication Hypertension Hyperlipidemia Coronary artery disease status post stents in the past End-stage renal disease on hemodialysis Friday Chronic anemia acute on chronic transfuse 1 unit PRBC 12/17/2022 SHEYLA on CPAP Moderate aortic valve stenosis DVT prophylaxis on heparin drip Code status full code Subjective Date/time seen: 12/17/22 15:16 Interval history: patient underwent dialysis morning. Received 1 unit of packed red blood cells during dialysis. Patient intubated and sedated Review of Systems Review of Systems: ROS unobtainable: Yes unobtainable due to mental status Exam Narrative: General: Not in acute distress intubated and sedated Neck:? Supple Respiratory:? Bilateral equal air entry Cardiac:? S1-S2 was normal, regular rate and rhythm, 3/6 murmur at the right upper sternal border Abdomen:? Soft, nondistended, normoactive bowel sounds Extremities:? Palpable pedal pulses, no edema Neuro:? Patient is sedated and intubated Skin:? Warm and dry Psych:? Could not be examined Objective Data Vital Signs Vital Signs: Vital Signs - 24 hr 12/16/22 15:47 12/16/22 16:00 12/16/22 16:00 Temperature 97.9 F 98.0 F Pulse Rate 91 90 92 Respiratory Rate 16 18 Blood Pressure 151/66 H 156/70 H Pulse Oximetry 100 Oxygen Delivery Fraction of Inspired Oxygen 12/16/22 16:00 12/16/22 18:00 12/16/22 18:00 Temperature 99.4 F Pulse Rate 74 89 89 Respiratory Rate 18 18 Blood Pressure 95/60 L Pulse Oximetry 100 99 Oxygen Delivery Mechanical Ventilation Fraction of Inspired Oxygen 50 12/16/22 16:00 12/16/22 18:00 12/16/22 16:00 Temperature Pulse Rate 90 89 90 Respiratory Rate 18 18 18 Blood Pressure Pulse Oximetry Oxygen Delivery Fraction of Inspired Oxygen 12/16/22 18:00 12/16/22 16:00 12/16/22 18:00 Temperature Pulse
[2022-12-17 17:04] LABS: Glucose Point of Care 174 mg/dl (65-105)
[2022-12-17 20:33] LABS: Glucose Point of Care 177 mg/dl (65-105)
[2022-12-17] MEDS: INSULIN GLARGINE (*BKC) 100 UNITS/ML 20 UNITS SUB-Q (20:34)
[2022-12-17] MEDS: ROSUVASTATIN 10 MG TABLET PO (20:35)
[2022-12-17] MEDS: FENTANYL 2,500MCG/NS250ML(*CRX 2,500 MCG/250 ML BAG 17.5 MCG IV CONT (21:05)
[2022-12-17 23:58] LABS: Glucose Point of Care 185 mg/dl (65-105)
[2022-12-18] VITALS (77 sets, daily range): BP systolic 74–186; BP diastolic 48–88; PULSE 78–150; RESP 18–24; TEMP 36.6–38.6; O2SAT 92–100
[2022-12-18] MEDS: ALBUTEROL SULFATE NEB 2.5 MG/3 ML INH INHALATION ×4 (01:12→21:07)
[2022-12-18] MEDS: IPRATROPIUM BR 0.02% INH SOLN 0.5 MG/2.5 ML VIAL INHALATION ×4 (01:12→21:07)
[2022-12-18 04:23] LABS: Alveolar/Arterial O2 Gradient 159.4 mmHg; Base Excess ABG 2.2 mEq/l (+/-2.0); Carboxyhemoglobin 0.2 % THb (0-2.0); Fractional Inspired Oxygen 50 %; HCO3 ABG 27.1 mEq/l (22.0-26.0); Methemoglobin ABG 0.6 %THb (0-1.5); Oxygen Content ABG 10.2 %vol (16.0-22.0); Oxygen Saturation ABG 98.9 % (95.0-100.0); Oxyhemoglobin 96.9 % THb (90.0-100.0); PCO2 ABG 43.8 mmHg (35.0-45.0); PO2 ABG 147.8 mmHg (80.0-100.0); PO2 FiO2 Ratio Arterial Blood 2.96 %; Reduced Hemoglobin 2.3 %THb (0-5.0); pH ABG 7.409 (7.350-7.450)
[2022-12-18 04:24] LABS: Device VENTILATOR; Modified Allen's Test Pass; Site Drawn LEFT RADIAL; Total Hemoglobin 7.2 g/dL (12.0-18.0)
[2022-12-18 04:25] LABS: Arterial Blood Gas PEEP 8 cmH2O; Arterial Blood Gas Tidal Volume 500 ml; Arterial Blood Gas Vent Mode CMV; Arterial Blood Gas Ventilator rate 18 /MIN
[2022-12-18 04:36] LABS: Basophils Percent Auto 0.1 % (0.2-1.2); Eosinophils Percent Auto 0.6 % (0-4.4); Immature Granulocyte Absolute 0.05 K/mm3 (0.00-0.031); Immature Granulocyte Percent A 0.7 % (0-0.5); Lymphocytes Absolute Auto 0.48 K/mm3 (0.9-3.2); Lymphocytes Percent Auto 6.8 % (18.3-44.2); Mean Corpuscular HGB Conc 31.3 g/dl (32-36); Mean Corpuscular Hemoglobin 31.8 pg (26-34); Mean Corpuscular Volume 101.5 fl (80-100); Mean Platelet Volume 10.4 fl (7.4-10.4); Monocytes Absolute Auto 0.5 K/mm3 (0.1-0.6); Monocytes Percent Auto 7.1 % (2.6-8.5); Neutrophils Percent Auto 84.7 % (45.5-73.1); Platelet Count Result 104 k/mm3 (150-375); Red Blood Count 1.95 M/mm3 (4.6-6.20); Red Cell Distribution Width 15.9 % (11.5-14.5); White Blood Count 7.1 K/mm3 (4.5-10.0)
[2022-12-18 04:42] LABS: Hemoglobin 6.2 g/dL (14.0-18.0)
[2022-12-18 04:43] LABS: Hematocrit 19.8 % (42.0-52.0)
[2022-12-18 04:47] LABS: Alanine Aminotransferase 20 U/L (6-50); Albumin Level 3.6 g/dL (3.5-5.1); Alkaline Phosphatase 70 U/L (38-126); Anion Gap 12 mmol/L (8-16); Aspartate Amino Transferase 22 U/L (17-59); Bilirubin,Total 0.7 mg/dL (0.2-1.3); Blood Urea Nitrogen 62 mg/dL (9-20); Calcium 8.9 mg/dL (8.4-10.2); Carbon Dioxide 27 mmol/L (22-30); Chloride 95 mmol/L (98-107); Estimated CRCL calculation 8 ml/min; Estimated Glomerular Filt Rate 5; Glucose 226 mg/dL (65-110); Magnesium 2.1 mg/dL (1.6-2.3); Potassium 4.9 mmol/L (3.4-5.0); Sodium 134 mmol/L (137-145)
[2022-12-18] MEDS: metroNIDAZOLE 500 MG/ISO 100ML 500 MG/100 ML BAG 100 MG IVPB ×3 (05:21→21:46)
[2022-12-18] MEDS: SODIUM CHLORIDE 0.9% IV 250 ML 30 ML IV CONT (05:23)
[2022-12-18] MEDS: CENTRAL LINE FLUSH 10 ML IV PUSH ×3 (05:23→21:46)
[2022-12-18 05:52] LABS: Glucose Point of Care 230 mg/dl (65-105)
[2022-12-18] MEDS: INSULIN ASPART (*BKC) 100 UNITS/ML SUB-Q ×2 (05:53→20:48)
--- NOTE | 2022-12-18 08:22 | WPDINTPN ---
Progress Note: A&P Assessment and Plan (1) Acute respiratory failure: Code(s): J96.00 - Acute respiratory failure, unspecified whether with hypoxia or hypercapnia Status: Acute Assessment and Plan: On presentation patient had bilateral pulmonary opacities suggestive of pulmonary edema 12/16 he was intubated post cardiac catheterization and chest x-ray showed worsening of diffuse bilateral interstitial edema although pneumonia could not be excluded CT scan showed 2. Small bilateral pleural effusions with large region of consolidation in the right lower lobe and a severe patchy airspace opacity left lower lobe which is concerning for pneumonia. Acute respiratory failure secondary to pulmonary edema and possible community-acquired pneumonia but this also could be an aspiration during or post catheterization or during intubation since intubation was emergent. Negative cOVID influenza PCR, pending sputum culture, blood culture, procalcitonin level 2.5 Continue empiric Levaquin and Flagyl (/24) ABG and chest x-ray reviewed Ventilator settings reviewed Patient is receiving hemodialysis this morning to remove additional fluid Plan to hold sedation after hemodialysis today and attempt a weaning trial (2) Chest pain: Qualifiers: Chest pain type: unspecified Qualified Code(s): R07.9 - Chest pain, unspecified Code(s): R07.9 - Chest pain, unspecified Status: Acute Assessment and Plan: Patient presented with chest pain with nausea, vomiting, diaphoresis and radiation to the left arm. -patient was transferred to the ICU from intermediate Unit on early hours of 12/16/2022 for increasing chest pain and requiring nitroglycerin infusion Cardiac catheterization 1.? ? Coronary artery disease with high-grade 95-99% in stent proximal LAD restenoses in this device that was deployed in August of 2019. 2.? ? Small vessel diffuse disease in the remainder of the LAD 3. ? severe hypertension 4. ? moderate disease of 80% stenosis in a small to medium-sized posterolateral branch of the RCA 5. ? patient known to have moderate aortic stenosis this was not evaluated in the clinical lab specialist today 6. ? right femoral groin puncture site hematoma as a complication of this procedure resulting from the vessel having to be punctured/accessed twice Continue aspirin Plavix and statin Hold beta-sakshi due to hypotension Echocardiogram Summary ? 1. Normal left ventricular size with moderate concentric hypertrophy. Hyperdynamic left ventricular systolic function with ejection fraction greater than 70%.? Grade 2 diastolic dysfunction is present no segmental wall motion abnormalities. ? 2. Moderate aortic stenosis with a Vmax of 3.1 M/S, mean gradient 21 mmHg, and LILLY 1.4-1.5 cm2.? Moderate aortic valve calcification. ? 3. Minor increased late peaking intraventricular flow velocity with a peak LVOT of 1.3 M/S, corresponding to no significant intraventricular gradient. ? 4. There is mild tricuspid valve regurgitation. ? 5. No pulmonary hypertension, estimated pulmonary arterial systolic pressure is 25 mmHg. ? 6. Left atrial chamber dimension is moderately enlarged. ? 7. Normal sinus rhythm. (3) ESRD on hemodialysis: Code(s): N18.6 - End stage renal disease; Z99.2 - Dependence on renal dialysis Status: Acute Assessment and Plan: Nephrology is following Patient was dialyzed 12/16 and is again getting ultrafiltration 12/17 He is getting dialyzed again today (4) Hematoma: Code(s): T14.8XXA - Other injury of unspecified body region, initial encounter Status: Acute Assessment and Plan: Patient double hematoma from arterial access site after cardiac catheterization CT scan postprocedure showed IMPRESSION: 1.? Prominent stranding in the subcutaneous fat at the right groin and anteromedial proximal most right thigh likely representing hematoma related to recent arterial access with right common femoral artery vascular acces
[2022-12-18] MEDS: PANTOPRAZOLE SODIUM IV 40 MG VIAL IV PUSH ×2 (08:45→20:47)
[2022-12-18] MEDS: MINERAL OIL/WHITE PETROLATUM OINTMENT 1 APPLIC EACH EYE ×2 (08:45→20:48)
[2022-12-18] MEDS: CLOPIDOGREL BISULFATE 75 MG TABLET PO (08:45)
[2022-12-18] MEDS: ASPIRIN 81 MG CHEWABLE TABLET PO (08:45)
[2022-12-18 09:14] LABS: Glucose Point of Care 183 mg/dl (65-105)
[2022-12-18] MEDS: ALBUMIN HUMAN 25% 12.5 GM/50ML 50 ML IVPB ×3 (09:53→10:53)
[2022-12-18] MEDS: EPOETIN ALFA 20,000 UNITS/ML VIAL 20000 UNITS IV PUSH (12:00)
--- NOTE | 2022-12-18 12:02 | PCFNICU ---
ICU Rounding Note: Pt current nutrition is Nepro @ 50 ml/h goal rate: 1782 kcal, 80 g protein, 719 ml free water. Prosource TF BID for additional 180 kcal and 40 g protein. Nutrition recommendation: Continue with current tube feeding orders with no changes. Agree with orders. Last recorded weight is 101.8 kg. Bowel Motility: Last BM 12/15/22 Labs Reviewed: Hgb 6.2, Hct 19.8, Na 134, GFR 5, BUN 62, Cre 10.4 Meds Noted: Fentanyl, versed, protonix. Skin: WNL Additional Notes: Pt was having dialysis. When dialysis is complete, RN said pt will have a breathing trial and attempt to extubate today. Agree with current orders. Following daily in ICU rounds. Monitor labs, plan of care, tube feeding tolerance, stool patterns, weights Follow daily in ICU. Reassess Friday and Friday.
--- NOTE | 2022-12-18 12:17 | P.PNNP_ITS ---
Progress Note: A&P Assessment and Plan (1) End stage renal disease: Code(s): N18.6 - End stage renal disease Status: Chronic Assessment and Plan: * HD today * continue M/W/F outpatient dialysis schedule * follow electrolytes, volume status, and clearance * primary meat clerk = Ashish Vega MD (2) Chest pain: Qualifiers: Chest pain type: unspecified Qualified Code(s): R07.9 - Chest pain, unspecified Code(s): R07.9 - Chest pain, unspecified Status: Acute Assessment and Plan: * as noted on admission * transferred to ICU on 12/16 due increasing chest pain and requiring nitroglycerin infusion * s/p cardiac catheterizaton with findings and intervention noted * Cardiology following * continue supportive therapy (3) Hyperkalemia: Code(s): E87.5 - Hyperkalemia Status: Chronic Assessment and Plan: * chronic issue/problems * on [facility] on non-dialysis days as an outpatient * follow trend of K+ (4) Acute respiratory failure: Code(s): J96.00 - Acute respiratory failure, unspecified whether with hypoxia or hypercapnia Status: Acute Assessment and Plan: * due to fluid overload/pulmonary edema precipitated by hypertensive urgency along with pneumonia * intubated and on mechanical ventilation * fluid removal with dialysis on 12/16 limited due to hemodynamics * DUF yesterday and HD today for further fluid removal * ventilator weaning as tolerated (5) Hypertension: Code(s): I10 - Essential (primary) hypertension Status: Acute Assessment and Plan: * reasonable control at this time * BP medications on hold given previous need for levophed * follow trend of hemodynamics (6) Anemia: Code(s): D64.9 - Anemia, unspecified Status: Chronic Assessment and Plan: * partly due to ESRD and acute illness * Epogen with HD * PRBC transfusion per protocol * follow trend of H/H (7) Diabetes mellitus type 1.5: Code(s): E13.9 - Other specified diabetes mellitus without complications Status: Chronic Assessment and Plan: * follow accu-cheks * glycemic control by hospitalists/intensivists Discussed case with Dr. Ignacio. Will continue to follow. Subjective Date/time seen: 12/18/22 12:17 Interval history: Follow-up for end stage renal disease on hemodialysis. Tolerated DUF yesterday and tolerating hemodialysis today at the time of my visit (seen on HD at ~ 12:05PM); febrile overnight and this morning; remains intubated and on mechanical ventilation; H/H low again this AM so received PRBC transfusion which he also received yesterday. Exam Narrative: General: WD/WN male intubated/sedated and on mechanical ventilation Heart: normal S1 and S2; no rub Lungs: coarse breath sounds noted Abdomen: soft, nontender, nondistended, positive bowel sounds Extremities: no cyanosis or clubbing; trace edema Skin: warm and intact Objective Data Vital Signs Vital Signs: Vital Signs Temp Pulse Resp BP Pulse Ox O2 Del Method FiO2 12/18/22 12:10 101.3 F H 138 H 23 H 186/88 H 94 12/18/22 10:00 97 18 12/18/22 10:00 97 18 12/18/22 12:36 101.2 F H 12/18/22 12:00 30 12/18/22 12:00 101 F H 135 H 24 H 114/81 92 12/18/22 09
--- NOTE | 2022-12-18 12:17 | PM.PNNEP ---
Progress Note: A&P Assessment and Plan (1) End stage renal disease: Code(s): N18.6 - End stage renal disease Status: Chronic Assessment and Plan: HD today continue M/W/F outpatient dialysis schedule follow electrolytes, volume status, and clearance primary public health advisor = Ashish Vega MD (2) Chest pain: Qualifiers: Chest pain type: unspecified Qualified Code(s): R07.9 - Chest pain, unspecified Code(s): R07.9 - Chest pain, unspecified Status: Acute Assessment and Plan: as noted on admission transferred to ICU on 12/16 due increasing chest pain and requiring nitroglycerin infusion s/p cardiac catheterizaton with findings and intervention noted Cardiology following continue supportive therapy (3) Hyperkalemia: Code(s): E87.5 - Hyperkalemia Status: Chronic Assessment and Plan: chronic issue/problems on [facility] on non-dialysis days as an outpatient follow trend of K+ (4) Acute respiratory failure: Code(s): J96.00 - Acute respiratory failure, unspecified whether with hypoxia or hypercapnia Status: Acute Assessment and Plan: due to fluid overload/pulmonary edema precipitated by hypertensive urgency along with pneumonia intubated and on mechanical ventilation fluid removal with dialysis on 12/16 limited due to hemodynamics DUF yesterday and HD today for further fluid removal ventilator weaning as tolerated (5) Hypertension: Code(s): I10 - Essential (primary) hypertension Status: Acute Assessment and Plan: reasonable control at this time BP medications on hold given previous need for levophed follow trend of hemodynamics (6) Anemia: Code(s): D64.9 - Anemia, unspecified Status: Chronic Assessment and Plan: partly due to ESRD and acute illness Epogen with HD PRBC transfusion per protocol follow trend of H/H (7) Diabetes mellitus type 1.5: Code(s): E13.9 - Other specified diabetes mellitus without complications Status: Chronic Assessment and Plan: follow accu-cheks glycemic control by hospitalists/intensivists Discussed case with Dr. Ignacio. Will continue to follow. Subjective Date/time seen: 12/18/22 12:17 Interval history: Follow-up for end stage renal disease on hemodialysis. Tolerated DUF yesterday and tolerating hemodialysis today at the time of my visit (seen on HD at ~ 12:05PM); febrile overnight and this morning; remains intubated and on mechanical ventilation; H/H low again this AM so received PRBC transfusion which he also received yesterday. Exam Narrative: General: WD/WN male intubated/sedated and on mechanical ventilation Heart: normal S1 and S2; no rub Lungs: coarse breath sounds noted Abdomen: soft, nontender, nondistended, positive bowel sounds Extremities: no cyanosis or clubbing; trace edema Skin: warm and intact Objective Data Vital Signs Vital Signs: Vital Signs Temp Pulse Resp BP Pulse Ox O2 Del Method FiO2 12/18/22 12:10 101.3 F H 138 H 23 H 186/88 H 94 12/18/22 10:00 97 18 12/18/22 10:00 97 18 12/18/22 12:36 101.2 F H 12/18/22 12:00 30 12/18/22 12:00 101 F H 135 H 24 H 114/81 92 12/18/22 09:54 99.6 F 94 18 91/58 L 99 12/18/22 09:09 99.4 F 107 H 18 152/75 H 99 12/18/22 08:34 101 H 18 12/18/22 08:32 100 95 Mechanical Ventilation 30 12/18/22 08:24 100 18 12/18/22 08:00 18 100 Mechanical Ventilation 30 12/18/22 08:00 30 12/18/22 08:00 99 F 78 18 100/55 L 100 12/18/22 08:00 78 18 12/18/22 08:09 98.9 F 96 18 100/55 L 97 12/18/22 08:00 78 18 12/18/22 07:54 99 F 81 18 122/57 L 100 12/18/22 07:30 99.1 F 79 18 103/59 L 100 12/18/22 06:44 99.5 F 80 18 106/54 L 100 12/18/22 06:47 82 18 12/18/22 06:00 82 18
[2022-12-18] MEDS: MIDAZOLAM HCL (*CRX) 2 MG/2 ML VIAL IV PUSH (12:20)
[2022-12-18] MEDS: ACETAMINOPHEN 325 MG TABLET 650 MG PO (12:36)
[2022-12-18 12:58] LABS: Hematocrit 28.3 % (42.0-52.0)
[2022-12-18 13:07] LABS: Triglycerides 301 mg/dL (<150)
[2022-12-18] MEDS: PROPOFOL IV EMULSION 100 ML 12.22 MG IV CONT (13:10)
[2022-12-18 13:19] LABS: INR 1.1; Prothrombin Time 14.7 Seconds (11.1-14.7)
[2022-12-18 13:21] LABS: Fibrinogen 698 mg/dl (215-510); Partial Thromboplastin Time 34.5 SECONDS (22.3-36.8)
[2022-12-18 13:46] LABS: Glucose Point of Care 118 mg/dl (65-105)
[2022-12-18] MEDS: ALBUMIN HUMAN 5% 250 ML IV CONT (14:04)
[2022-12-18] MEDS: KETOROLAC 30 MG/ML VIAL (*BKC) IV PUSH (14:05)
[2022-12-18] MEDS: FENTANYL 2,500MCG/NS250ML(*CRX 2,500 MCG/250 ML BAG 12.5 MCG IV CONT (14:19)
--- NOTE | 2022-12-18 16:14 | PC.NURSE ---
Urinary Rao catheter removed at 1312 per MD orders.
[2022-12-18 16:25] LABS: Glucose Point of Care 182 mg/dl (65-105)
[2022-12-18 18:40] LABS: Hematocrit 23.1 % (42.0-52.0); Hemoglobin 7.3 g/dL (14.0-18.0)
[2022-12-18 19:19] LABS: Glucose Point of Care 262 mg/dl (65-105)
--- NOTE | 2022-12-18 19:20 | PM.IMPN ---
Progress Note: A&P Assessment and Plan (1) End stage renal disease: Code(s): N18.6 - End stage renal disease Status: Chronic (2) Acute respiratory failure: Code(s): J96.00 - Acute respiratory failure, unspecified whether with hypoxia or hypercapnia Status: Acute (3) Anemia: Code(s): D64.9 - Anemia, unspecified Status: Chronic Plan hb down to 7.2, intensivits ordered an aortic runoff. to assess further mgmt with results. cont abx, held aspirin and plavix 2/2 bleeding cont to trend hb Subjective Date/time seen: 12/18/22 19:20 Interval history: 2 prbc given this am. received dialysis as well, intubated Review of Systems Review of Systems: ROS unobtainable: Yes unobtainable due to endotracheal tube Exam Const: General: comfortable and no acute distress Cardio: Rate: regular rate Rhythm: regular rhythm Extrem: General: no edema Objective Data Vital Signs Vital Signs: Vital Signs - 24 hr 12/17/22 19:24 12/17/22 19:25 12/17/22 20:00 Temperature 101.8 F H Pulse Rate 106 H 121 H 111 H Respiratory Rate 18 20 18 Blood Pressure 95/54 L Pulse Oximetry 100 Oxygen Delivery Fraction of Inspired Oxygen 12/17/22 20:20 12/17/22 20:00 12/17/22 21:02 Temperature Pulse Rate 115 H 115 H 105 H Respiratory Rate 22 H 22 H 18 Blood Pressure 84/55 L Pulse Oximetry 100 100 Oxygen Delivery Mechanical Ventilation Fraction of Inspired Oxygen 50 12/17/22 21:02 12/17/22 21:05 12/17/22 21:10 Temperature Pulse Rate 105 H 106 H 97 Respiratory Rate 18 18 18 Blood Pressure 132/60 Pulse Oximetry 100 Oxygen Delivery Fraction of Inspired Oxygen 12/17/22 22:00 12/17/22 22:00 12/17/22 22:00 Temperature 101.4 F H Pulse Rate 98 95 95 Respiratory Rate 18 18 18 Blood Pressure 128/60 Pulse Oximetry 100 Oxygen Delivery Fraction of Inspired Oxygen 12/17/22 20:00 12/17/22 22:00 12/17/22 22:30 Temperature Pulse Rate 115 H 96 97 Respiratory Rate Blood Pressure Pulse Oximetry 100 Oxygen Delivery Mechanical Ventilation Fraction of Inspired Oxygen 50 12/18/22 00:00 12/18/22 00:00 12/18/22 00:00 Temperature 101 F H Pulse Rate 102 H 102 H 101 H Respiratory Rate 18 18 Blood Pressure 139/70 Pulse Oximetry 100 100 Oxygen Delivery Mechanical Ventilation Fraction of Inspired Oxygen 50 12/18/22 00:00 12/18/22 00:00 12/18/22 01:12 Temperature Pulse Rate 101 H 101 H 87 Respiratory Rate 18 18 18 Blood Pressure Pulse Oximetry Oxygen Delivery Fraction of Inspired Oxygen 12/18/22 01:15 12/18/22 01:20 12/18/22 02:00 Temperature Pulse Rate 88 86 91 Respiratory Rate 18 Blood Pressure Pulse Oximetry 100 Oxygen Delivery Mechanical Ventilation Fraction of Inspired Oxygen 50 12/18/22 02:00 12/18/22 02:00 12/18/22 02:00 Temperature 100.5 F H Pulse Rate 92 90 90 Respiratory Rate 18 18 18 Blood Pressure 107/57 L Pulse Oximetry 100 Oxygen Delivery Fraction of Inspired Oxygen 12/18/22 04:00 12/18/22 04:00 12/18/22 04:00 Temperature 100.3 F H Pulse Rate 89 89 89 Respiratory Rate 18 18 Blood Pressure 110/56 L Pulse Oximetry 100 100 Oxygen Delivery Mechanical Ventilation Fraction of Inspired Oxygen 50 12/18/22 04:13 12/18/22 04:00 12/18/22 04:00 Temperature Pulse Rate 88 89 89 Respiratory Rate 18 18 Blood Pressure Pulse Oximetry 100 Oxygen Delivery Mechanical Ventilation Fraction of Inspired Oxygen 50 12/18/22 05:27 12/18/22 05:37 12/18/22 05:44 Temperature 100 F H 99.9 F H Pulse Rate 89 89 86 Respiratory Rate 18 18 18 Blood Pressure 98/55 L 93/51 L Pulse Oximetry 100 100 Oxygen Delivery Fraction of Inspired Oxygen 12/18/22 06:00 12/18/22 06:00 12/18/22 06:13 Temperature 99.8 F H Pulse Rate 87 86 82 Respiratory Rate 18 18 Blood Pressure 98/57 L Pulse Oximetry 100 Oxygen Delivery
--- NOTE | 2022-12-18 20:00 | PC.NURSE ---
Patient's updated on patient's need to repeat CT due to drop in hemoglobin. Consented again via telephone. Patient then transported to CT via bed with RT, charge operator and RN. Brought back up to ICU after. MD called with results and updated.
[2022-12-18] MEDS: INSULIN GLARGINE (*BKC) 100 UNITS/ML 20 UNITS SUB-Q (20:47)
[2022-12-18] MEDS: ROSUVASTATIN 10 MG TABLET PO (20:48)
[2022-12-18 21:02] LABS: Glucose Point of Care 269 mg/dl (65-105)
[2022-12-19] VITALS (55 sets, daily range): BP systolic 106–189; BP diastolic 54–107; PULSE 75–147; RESP 18–32; TEMP 36.2–38.4; O2SAT 89–100
[2022-12-19] MEDS: INSULIN ASPART (*BKC) 100 UNITS/ML SUB-Q ×4 (00:13→20:19)
[2022-12-19 00:14] LABS: Glucose Point of Care 226 mg/dl (65-105)
[2022-12-19 00:20] LABS: Hematocrit 23.3 % (42.0-52.0); Hemoglobin 7.6 g/dL (14.0-18.0)
[2022-12-19] MEDS: ALBUTEROL SULFATE NEB 2.5 MG/3 ML INH INHALATION ×4 (02:34→20:30)
[2022-12-19] MEDS: IPRATROPIUM BR 0.02% INH SOLN 0.5 MG/2.5 ML VIAL INHALATION ×4 (02:34→20:30)
[2022-12-19 04:48] LABS: Alveolar/Arterial O2 Gradient 50.5 mmHg; Base Excess ABG 5.2 mEq/l (+/-2.0); Carboxyhemoglobin 0.3 % THb (0-2.0); Fractional Inspired Oxygen 25 %; HCO3 ABG 30.3 mEq/l (22.0-26.0); Methemoglobin ABG 0.3 %THb (0-1.5); Oxygen Content ABG 12.2 %vol (16.0-22.0); Oxygen Saturation ABG 94.7 % (95.0-100.0); Oxyhemoglobin 92.9 % THb (90.0-100.0); PCO2 ABG 47.1 mmHg (35.0-45.0); PO2 ABG 71.8 mmHg (80.0-100.0); PO2 FiO2 Ratio Arterial Blood 2.87 %; Reduced Hemoglobin 6.5 %THb (0-5.0); Total Hemoglobin 9.3 g/dL (12.0-18.0); pH ABG 7.426 (7.350-7.450)
[2022-12-19 04:53] LABS: Arterial Blood Gas Ventilator rate 18 /MIN; Device VENTILATOR; Modified Allen's Test Pass; Site Drawn LEFT RADIAL
[2022-12-19 04:54] LABS: Arterial Blood Gas PEEP 8 cmH2O; Arterial Blood Gas Tidal Volume 500 ml; Arterial Blood Gas Vent Mode CMV
[2022-12-19] MEDS: MIDAZOLAM 100MG/NS 100ML(*CRX) 100 MG/100 ML BAG IV CONT (04:59)
[2022-12-19] MEDS: metroNIDAZOLE 500 MG/ISO 100ML 500 MG/100 ML BAG 100 MG IVPB ×3 (05:25→21:45)
[2022-12-19] MEDS: CENTRAL LINE FLUSH 10 ML IV PUSH ×4 (05:25→21:45)
[2022-12-19 05:29] LABS: Glucose Point of Care 210 mg/dl (65-105)
[2022-12-19 05:33] LABS: Hematocrit 24.2 % (42.0-52.0); Hemoglobin 7.7 g/dL (14.0-18.0); Immature Platelet Fraction Pct 4.4 % (0.9-11.2); Mean Corpuscular HGB Conc 31.8 g/dl (32-36); Mean Corpuscular Volume 97.6 fl (80-100); Mean Platelet Volume 9.8 fl (7.4-10.4); Platelet Count Result 99 k/mm3 (150-375); Red Blood Count 2.48 M/mm3 (4.6-6.20); Red Cell Distribution Width 15.9 % (11.5-14.5); White Blood Count 5.2 K/mm3 (4.5-10.0)
[2022-12-19 05:52] LABS: Alanine Aminotransferase 17 U/L (6-50); Albumin Level 3.7 g/dL (3.5-5.1); Alkaline Phosphatase 69 U/L (38-126); Anion Gap 11 mmol/L (8-16); Aspartate Amino Transferase 22 U/L (17-59); Bilirubin,Total 0.8 mg/dL (0.2-1.3); Blood Urea Nitrogen 43 mg/dL (9-20); Calcium 9.6 mg/dL (8.4-10.2); Carbon Dioxide 31 mmol/L (22-30); Chloride 93 mmol/L (98-107); Estimated CRCL calculation 12 ml/min; Estimated Glomerular Filt Rate 8; Glucose 203 mg/dL (65-110); Phosphorus 4.6 mg/dL (2.5-4.5); Potassium 3.9 mmol/L (3.4-5.0); Sodium 135 mmol/L (137-145)
[2022-12-19 05:58] LABS: Band Neutrophils Percent 5 % (0-6); Basophils Absolute Manual 0.05 K/mm3 (0.0-0.1); Basophils Percent Manual 1 % (0-1); Hypochromasia 1+ (NORMAL); Lymphocytes Absolute Manual 0.52 K/mm3 (1.1-4.5); Metamyelocytes Percent 1 %; Monocytes Percent Manual 2 % (3-9); Neutrophils Absolute Manual 4.47 K/mm3 (1.3-6.7); Neutrophils Percent Manual 81 % (46-73); Total Cells Counted 100
[2022-12-19 05:59] LABS: Anisocytosis 1+ (NORMAL); Macrocytosis 1+ (NORMAL); Platelet Estimate Adequate (Adequate); Schistocytes None Seen (NORMAL)
--- NOTE | 2022-12-19 08:19 | WPDINTPN ---
Progress Note: A&P Assessment and Plan (1) Acute respiratory failure: Code(s): J96.00 - Acute respiratory failure, unspecified whether with hypoxia or hypercapnia Status: Acute Assessment and Plan: On presentation patient had bilateral pulmonary opacities suggestive of pulmonary edema 12/16 he was intubated post cardiac catheterization and chest x-ray showed worsening of diffuse bilateral interstitial edema although pneumonia could not be excluded CT scan showed?2. Small bilateral pleural effusions with large region of consolidation in the right lower lobe and a severe patchy airspace opacity left lower lobe which is concerning for pneumonia. Acute respiratory failure secondary to pulmonary edema and possible community-acquired pneumonia but this also could be an aspiration during or post catheterization or during intubation since intubation was emergent. Negative COVID influenza PCR, pending sputum culture, blood culture, procalcitonin level 2.5 Continue empiric Levaquin and Flagyl ([id number]) ABG and chest x-ray reviewed -advance ET tube by 2 cm Ventilator settings reviewed Patient has received dialysis to remove additional fluid. Patient placed on sedation holiday and will evaluate for weaning trial (2) Chest pain: Qualifiers: Chest pain type: unspecified Qualified Code(s): R07.9 - Chest pain, unspecified Code(s): R07.9 - Chest pain, unspecified Status: Acute Assessment and Plan: Patient presented with chest pain with nausea, vomiting, diaphoresis and radiation to the left arm. -patient was transferred to the ICU from intermediate Unit on early hours of 12/16/2022 for increasing chest pain and requiring nitroglycerin infusion Cardiac catheterization 1.? ? Coronary artery disease with high-grade 95-99% in stent proximal LAD restenoses in this device that was deployed in August of 2019. 2.? ? Small vessel diffuse disease in the remainder of the LAD 3. ? severe hypertension 4. ? moderate disease of 80% stenosis in a small to medium-sized posterolateral branch of the RCA 5. ? 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 ? right femoral groin puncture site hematoma as a complication of this procedure resulting from the vessel having to be punctured/accessed twice Continue aspirin Plavix and statin Hold beta-sakshi due to hypotension Echocardiogram Summary ? 1. Normal left ventricular size with moderate concentric hypertrophy. Hyperdynamic left ventricular systolic function with ejection fraction greater than 70%.? Grade 2 diastolic dysfunction is present no segmental wall motion abnormalities. ? 2. Moderate aortic stenosis with a Vmax of 3.1 M/S, mean gradient 21 mmHg, and LILLY 1.4-1.5 cm2.? Moderate aortic valve calcification. ? 3. Minor increased late peaking intraventricular flow velocity with a peak LVOT of 1.3 M/S, corresponding to no significant intraventricular gradient. ? 4. There is mild tricuspid valve regurgitation. ? 5. No pulmonary hypertension, estimated pulmonary arterial systolic pressure is 25 mmHg. ? 6. Left atrial chamber dimension is moderately enlarged. ? 7. Normal sinus rhythm. (3) ESRD on hemodialysis: Code(s): N18.6 - End stage renal disease; Z99.2 - Dependence on renal dialysis Status: Acute Assessment and Plan: Nephrology is following Patient was dialyzed 12/16 and is again getting ultrafiltration 12/17 12/18 he was again dialyzed and 2.5 L fluid was removed. Post dialysis patient did have tachycardia and ectopy and received a small bolus of albumin, increase in sedation and IV Toradol (4) Hematoma: Code(s): T14.8XXA - Other injury of unspecified body region, initial encounter Status: Acute Assessment and Plan: Patient double hematoma from arterial access site after cardiac catheterization CT scan postprocedure showed?IMPRESSION: 1.? Prominent stranding in the subcutaneous fat at the right leonid
[2022-12-19] MEDS: PANTOPRAZOLE SODIUM IV 40 MG VIAL IV PUSH ×2 (08:23→20:19)
[2022-12-19] MEDS: levoFLOXacin 500 MG/D5W 100 ML 500 MG/100 ML BAG 100 MG IVPB (08:24)
[2022-12-19] MEDS: MINERAL OIL/WHITE PETROLATUM OINTMENT 1 APPLIC EACH EYE ×2 (08:25→20:19)
[2022-12-19] MEDS: LABETALOL HCL INJ 100 MG/20 ML VIAL 20 MG IV PUSH ×3 (08:54→14:20)
[2022-12-19 09:01] LABS: Glucose Point of Care 198 mg/dl (65-105)
[2022-12-19] MEDS: dexmedeTOMIDine 400 MCG/100 ML 400 MCG/100 ML BAG 12.85 MCG IV CONT (09:22)
[2022-12-19 09:31] LABS: Alveolar/Arterial O2 Gradient 122.9 mmHg; Base Excess ABG 2.1 mEq/l (+/-2.0); Carboxyhemoglobin 0.2 % THb (0-2.0); Fractional Inspired Oxygen 35 %; HCO3 ABG 27.8 mEq/l (22.0-26.0); Methemoglobin ABG 0.3 %THb (0-1.5); Oxygen Content ABG 12.5 %vol (16.0-22.0); Oxygen Saturation ABG 93.5 % (95.0-100.0); Oxyhemoglobin 91.7 % THb (90.0-100.0); PCO2 ABG 48.7 mmHg (35.0-45.0); Reduced Hemoglobin 7.8 %THb (0-5.0); Total Hemoglobin 9.6 g/dL (12.0-18.0); pH ABG 7.374 (7.350-7.450)
[2022-12-19 09:34] LABS: Device VENTILATOR; Site Drawn LEFT BRACHIAL
[2022-12-19 09:35] LABS: Arterial Blood Gas PEEP 8 cmH2O; Arterial Blood Gas Vent Mode SPONTANEOUS
[2022-12-19 09:36] LABS: Arterial Blood Gas Pressure Support 5 cmH2O
[2022-12-19] MEDS: methylPREDNISolone SOD SUCC 40 MG VIAL IV PUSH ×2 (10:11→17:43)
[2022-12-19] MEDS: racEPINEPHrine 2.25% NEBU SOLN 0.5 ML VIAL.NEB INHALATION (10:11)
--- NOTE | 2022-12-19 10:12 | PC.NURSE ---
Pt agitated after extubation. Dr. Ignacio at bedside. Pt struggling to breathe. New order to place pt on BiPAP and increase Precedex gtt to 1.0 mcg/kg/hr. Start IVP Solu-medrol 40mg q6hr first dose now. RT to administer Racepinephrine x1 now.
--- NOTE | 2022-12-19 10:42 | PCFNICU ---
ICU Rounding Note: Pt current nutrition is NPO. Nutrition recommendation: Renal Dialysis once diet order advances. Last recorded weight is 102.8 kg Bowel Motility:+BM reported 12/15 Labs Reviewed:Glu 203, Cr 7.2, BUN 43, GFR 8, Na 135 Meds Noted:Protonix, Precedex, Lopressor, Crestor Skin: WNL Additional Notes: Patient has been extubated today. NPO at this time. When diet order advanced recommend a Renal Dialysis diet. Following daily in ICU rounds. Monitor labs, plan of care, tube feeding tolerance, stool patterns, weights every 3 days.
--- NOTE | 2022-12-19 10:48 | PM.EVENT ---
Event Note Event Note Event Note: 07/01 PSV SBT done for more than 30 minutes. Patient was agitated and was started on Precedex infusion. His blood pressure was elevated patient does have history of hypertension and was now off of sedation. Labetalol was given which helped. His RSBI, ABG and other Vitals were acceptable. Pt was following commands. Patient was extubated. Post extubation patient had some respiratory distress and was making grunting sound. It was hard to tell if patient had stridor as abnormal sound could be heard in both inspiration and expiration. Racemic epi neb was given, patient has been started on Solu-Medrol. I placed patient on BiPAP. Which has helped improvement in his saturation tachypnea and abnormal breath sounds. Will monitor and see if we can avoid re-intubation. Patient remains at risk of requiring re-intubation. It appears the patient has had history of tracheostomy in the past which may make things difficult. I have called and left message on voicemail of patient's .
--- NOTE | 2022-12-19 11:25 | PM.PNNEP ---
Progress Note: A&P Assessment and Plan (1) End stage renal disease: Code(s): N18.6 - End stage renal disease Status: Chronic Assessment and Plan: HD tomorrow continue M/W/F outpatient dialysis schedule follow electrolytes, volume status, and clearance primary plisse machine operator helper = Ashish Vega MD ([place] [facility] [place] (2) Chest pain: Qualifiers: Chest pain type: unspecified Qualified Code(s): R07.9 - Chest pain, unspecified Code(s): R07.9 - Chest pain, unspecified Status: Acute Assessment and Plan: as noted on admission transferred to ICU on 12/16 due increasing chest pain and requiring nitroglycerin infusion s/p cardiac catheterizaton with findings and intervention noted Cardiology following continue supportive therapy (3) Hyperkalemia: Code(s): E87.5 - Hyperkalemia Status: Chronic Assessment and Plan: chronic issue/problems on [facility] on non-dialysis days as an outpatient follow trend of K+ (4) Acute respiratory failure: Code(s): J96.00 - Acute respiratory failure, unspecified whether with hypoxia or hypercapnia Status: Acute Assessment and Plan: due to fluid overload/pulmonary edema precipitated by hypertensive urgency along with pneumonia was intubated and on mechanical ventilation extubated however, requiring BiPAP support continue fluid removal as tolerated follow respiratory status closely (5) Hypertension: Code(s): I10 - Essential (primary) hypertension Status: Acute Assessment and Plan: reasonable control at this time BP running on the higher side now follow trend of hemodynamics (6) Anemia: Code(s): D64.9 - Anemia, unspecified Status: Chronic Assessment and Plan: partly due to ESRD and acute illness Epogen with HD PRBC transfusion per protocol follow trend of H/H (7) Diabetes mellitus type 1.5: Code(s): E13.9 - Other specified diabetes mellitus without complications Status: Chronic Assessment and Plan: follow accu-cheks glycemic control by hospitalists/intensivists Will continue to follow. Subjective Date/time seen: 12/19/22 11:25 Interval history: Follow-up for end stage renal disease on hemodialysis. Tolerated dialysis yesterday without any issue or problems; extubated earlier today but on BiPAP therapy due to his tenuous respiratory status at this time with the concern he may require re-intubation; blood pressure running higher now as well; temperature curve doing better. Exam Narrative: General: WD/WN male on BiPAP therapy Heart: normal S1 and S2; no rub Lungs: coarse breath sounds noted Abdomen: soft, nontender, nondistended, positive bowel sounds Extremities: no cyanosis or clubbing; trace edema Skin: no rash Objective Data Vital Signs Vital Signs: Vital Signs Temp Pulse Resp BP Pulse Ox O2 Del Method O2 Flow Rate 12/19/22 10:44 100 BiPAP 12/19/22 10:45 101 H 27 H 97 BiPAP 12/19/22 10:10 98 BiPAP 12/19/22 10:00 89 L Nasal Cannula 4 12/19/22 10:00 119 H 26 H 181/107 H 89 L 12/19/22 10:12 115 H 32 H 12/19/22 10:20 103 H 29 H 12/19/22 10:10 102 H 29 H 12/19/22 10:10 106 H 28 H 98 BiPAP 12/19/22 09:22 107 H 29 H 12/19/22 08:47 123 H 22 H 12/19/22 08:30 102 H 97 Mechanical Ventilation 12/19/22 08:25 92 18 12/19/22 08:54 147 H 12/19/22 08:00 100 Mechanical Ventilation 12/19/22 08:00 12/19/22 08:00 99.6 F 86 18 121/56 L 96 12/19/22 08:04 87 18 12/19/22 08:03 87 18 12/19/22 06:00 98.3 F 85 18 106/54 L 97 12/19/22 06:00 85 12/19/22 04:00 83 12/19/22 06:15 85 18 12/19/22 06:15 85 18 12/19/22 06:15 85 18 12/19/22 05:33 81 100 Mechanical Ventilation 12/19/22 04:
--- NOTE | 2022-12-19 11:25 | P.PNNP_ITS ---
Progress Note: A&P Assessment and Plan (1) End stage renal disease: Code(s): N18.6 - End stage renal disease Status: Chronic Assessment and Plan: * HD tomorrow * continue M/W/F outpatient dialysis schedule * follow electrolytes, volume status, and clearance * primary certified physical therapist assistant = Ashish Vega MD (at [facility] [place], [place]) (2) Chest pain: Qualifiers: Chest pain type: unspecified Qualified Code(s): R07.9 - Chest pain, unspecified Code(s): R07.9 - Chest pain, unspecified Status: Acute Assessment and Plan: * as noted on admission * transferred to ICU on 12/16 due increasing chest pain and requiring nitroglycerin infusion * s/p cardiac catheterizaton with findings and intervention noted * Cardiology following * continue supportive therapy (3) Hyperkalemia: Code(s): E87.5 - Hyperkalemia Status: Chronic Assessment and Plan: * chronic issue/problems * on [facility] on non-dialysis days as an outpatient * follow trend of K+ (4) Acute respiratory failure: Code(s): J96.00 - Acute respiratory failure, unspecified whether with hypoxia or hypercapnia Status: Acute Assessment and Plan: * due to fluid overload/pulmonary edema precipitated by hypertensive urgency along with pneumonia * was intubated and on mechanical ventilation * extubated * however, requiring BiPAP support * continue fluid removal as tolerated * follow respiratory status closely (5) Hypertension: Code(s): I10 - Essential (primary) hypertension Status: Acute Assessment and Plan: * reasonable control at this time * BP running on the higher side now * follow trend of hemodynamics (6) Anemia: Code(s): D64.9 - Anemia, unspecified Status: Chronic Assessment and Plan: * partly due to ESRD and acute illness * Epogen with HD * PRBC transfusion per protocol * follow trend of H/H (7) Diabetes mellitus type 1.5: Code(s): E13.9 - Other specified diabetes mellitus without complications Status: Chronic Assessment and Plan: * follow accu-cheks * glycemic control by hospitalists/intensivists Will continue to follow. Subjective Date/time seen: 12/19/22 11:25 Interval history: Follow-up for end stage renal disease on hemodialysis. Tolerated dialysis yesterday without any issue or problems; extubated earlier today but on BiPAP therapy due to his tenuous respiratory status at this time with the concern he may require re-intubation; blood pressure running higher now as well; temperature curve doing better. Exam Narrative: General: WD/WN male on BiPAP therapy Heart: normal S1 and S2; no rub Lungs: coarse breath sounds noted Abdomen: soft, nontender, nondistended, positive bowel sounds Extremities: no cyanosis or clubbing; trace edema Skin: no rash Objective Data Vital Signs Vital Signs: Vital Signs Temp Pulse Resp BP Pulse Ox O2 Del Method O2 Flow Rate 12/19/22 10:44 100 BiPAP 12/19/22 10:45 101 H 27 H 97 BiPAP 12/19/22 10:10 98 BiPAP 12/19/22 10:00 89 L Nasal Cannula 4 12/19/22 10:00 119 H 26 H 181/107 H 89 L 12/19/22 10:12 115 H 32 H 12/19/22 10:20 103 H 29 H 12/19/22 10:10 102 H 29 H
[2022-12-19 12:50] LABS: Glucose Point of Care 247 mg/dl (65-105)
[2022-12-19] MEDS: dexmedeTOMIDine 400 MCG/100 ML 400 MCG/100 ML BAG 25.7 MCG IV CONT (13:01)
[2022-12-19 14:47] LABS: Ammonia < 9 umol/L (9-30)
[2022-12-19] MEDS: hydrALAZINE HCL 20 MG/ML VIAL 10 MG IV PUSH (16:02)
--- NOTE | 2022-12-19 16:12 | PM.PNCARD ---
Progress Note: A&P Assessment and Plan (1) Chest pain: Qualifiers: Chest pain type: unspecified Qualified Code(s): R07.9 - Chest pain, unspecified Code(s): R07.9 - Chest pain, unspecified Status: Acute Assessment and Plan: Unstable angina secondary to restenosis of previously placed LAD stent which was addressed with balloon angioplasty with a good anatomical result. Continue ASA, statin, Plavix Continue risk factor modification for CAD He did have a hematoma following LHC but this is stable, CTA showed no intra abdominal hemorrhage. H&H stable today. Daily CBC Hypertensive since extubation. Receiving labetalol without improvement. Will give IV hydralazine 10mg We will continue to follow (2) ESRD on hemodialysis: Code(s): N18.6 - End stage renal disease; Z99.2 - Dependence on renal dialysis Status: Acute Assessment and Plan: On dialysis. Nephrology following (3) Acute respiratory failure: Code(s): J96.00 - Acute respiratory failure, unspecified whether with hypoxia or hypercapnia Status: Acute Assessment and Plan: Flash pulmonary edema and acute hypoxic respiratory failure post cardiac catheterization not extubated on BiPAP. Poss. pneumonia? Abx started. Management per Critical Care. Subjective Date/time seen: 12/19/22 16:12 Interval history: Cardiology follow up for NSTEMI, CAD Date of service 12/17/2022: Patient had acute respiratory distress yesterday upon arrival to the ICU from pathology laboratory director and is now intubated. Date of service 12/19/22: Extubated this morning but on BiPAP because of respiratory distress after extubation. Review of Systems Constitutional: Constitutional: Reports lethargy Eyes: Eyes: Reports no additional eye complaints ENT: Reports system reviewed and no additional complaints, except as documented Cardiovascular: Cardiovascular: Reports as per HPI and Reports chest pain Respiratory: Respiratory: Reports no additional respiratory complaints Gastrointestinal: Gastrointestinal: Reports no additional gastrointestinal complaints Musculoskeletal: Musculoskeletal: Reports no additional musculoskeletal complaints Integumentary/Breasts: Skin/Breast: Reports system reviewed and no additional complaints, except as docu Neurologic: Reports system reviewed and no additional complaints, except as documented Endocrine: Endocrine: Reports no additional endocrine complaints Hematologic/Lymphatic: Hematologic/Lymphatic: Reports no additional hematologic/lymphatic complaints Allergic/Immunologic: Allergic/Immunologic: Reports no additional allergic/immunologic complaints Exam Const: General: comfortable, no acute distress and ill appearing acutely [facility]: Mouth: Yes moist mucous membranes Other: BiPAP mask in place Eyes: Sclera: sclerae normal Neck: Neck: supple and no JVD Other: Carotid pulses are intact bilaterally Resp: Effort & Inspection: normal respiratory effort Auscultation: clear to auscultation bilaterally Other: No rales, wheezes, rhonchi anteriorly Cardio: Rate: regular rate Rhythm: regular rhythm Heart sounds: Murmur heart sound present systolic GI: Auscultation: normal bowel sounds Skin: General skin exam: normal color Other: R groin arterial insertion site with no bleeding, surrounding skin soft, some ecchymosis Neuro: Other: Sedated, on Precedex Extrem: General: normal to inspection Other: Distal pulses are palpable Objective Data Vital Signs Vital Signs: Vital Signs - 24 hr 12/18/22 16:16 12/18/22 17:07 12/18/22 17:00 Temperature 37.3 C Pulse Rate 105 H 104 H Respiratory Rate 18 Blood Pressure Pulse Oximetry 94 Oxygen Delivery Mechanical Ventilation Oxygen Flow Rate Fraction of Inspired Oxygen 30 12/18/22 17:57 12/18/22 17:57 12/18/22 18:00 Temperature 37.7 C H Pulse Rate 98 98 97 Respiratory Rate
--- NOTE | 2022-12-19 16:40 | PM.IMPN ---
Progress Note: A&P Assessment and Plan (1) End stage renal disease: Code(s): N18.6 - End stage renal disease Status: Chronic (2) Anemia: Code(s): D64.9 - Anemia, unspecified Status: Chronic (3) Acute respiratory failure: Code(s): J96.00 - Acute respiratory failure, unspecified whether with hypoxia or hypercapnia Status: Acute (4) Hematoma: Code(s): T14.8XXA - Other injury of unspecified body region, initial encounter Status: Acute (5) Chest pain: Qualifiers: Chest pain type: unspecified Qualified Code(s): R07.9 - Chest pain, unspecified Code(s): R07.9 - Chest pain, unspecified Status: Acute Plan extubated today. continue to monitor in ICU on precedex. cont current abx for treatment of pna along with schedule dialysis. guarded condition. anemia slowly improving. continue to monitor. aorta runoff CT on 12/19 did not demonstrate active bleeding. plavix and aspirin can continue. prn labetalol being used for hypertension, consider restarting his metoprolol tartrate. full code. guarded. cardiology and intensivists following Subjective Date/time seen: 12/19/22 16:40 Interval history: son at bedside, the patient is sedated on precedex. extubated today. on bipap after respiratory grunting Review of Systems Review of Systems: All systems reviewed & are unremarkable except as noted in HPI and below Exam Const: General: comfortable and no acute distress Eyes: Pupils: Equal, round and reactive pupils present Resp: Auscultation: rales Other: left lung base Cardio: Rate: regular rate Rhythm: regular rhythm GI: GI Palp: Yes Soft to palpation Extrem: General: no edema Objective Data Vital Signs Vital Signs: Vital Signs - 24 hr 12/18/22 17:07 12/18/22 17:00 12/18/22 17:57 Temperature Pulse Rate 105 H 104 H 98 Respiratory Rate 18 18 Blood Pressure Pulse Oximetry 94 Oxygen Delivery Mechanical Ventilation Oxygen Flow Rate Fraction of Inspired Oxygen 30 12/18/22 17:57 12/18/22 18:00 12/18/22 18:00 Temperature 100 F H Pulse Rate 98 97 97 Respiratory Rate 18 18 Blood Pressure 110/59 L Pulse Oximetry 96 Oxygen Delivery Oxygen Flow Rate Fraction of Inspired Oxygen 12/18/22 20:00 12/18/22 20:00 12/18/22 20:00 Temperature 98.7 F Pulse Rate 102 H 107 H 107 H Respiratory Rate 18 22 H 22 H Blood Pressure 147/77 H Pulse Oximetry 97 Oxygen Delivery Oxygen Flow Rate Fraction of Inspired Oxygen 12/18/22 20:00 12/18/22 20:00 12/18/22 22:00 Temperature Pulse Rate 107 H 97 Respiratory Rate 22 H Blood Pressure Pulse Oximetry Oxygen Delivery Oxygen Flow Rate Fraction of Inspired Oxygen 25 12/18/22 22:00 12/18/22 21:10 12/18/22 20:00 Temperature 97.9 F Pulse Rate 97 94 Respiratory Rate 18 Blood Pressure 147/66 H Pulse Oximetry 100 96 97 Oxygen Delivery Mechanical Ventilation Mechanical Ventilation Oxygen Flow Rate Fraction of Inspired Oxygen 25 25 12/18/22 23:07 12/18/22 23:07 12/18/22 23:07 Temperature Pulse Rate 80 80 80 Respiratory Rate 18 18 18 Blood Pressure Pulse Oximetry Oxygen Delivery Oxygen Flow Rate Fraction of Inspired Oxygen 12/19/22 00:00 12/19/22 00:00 12/19/22 00:12 Temperature 97.8 F Pulse Rate 83 77 Respiratory Rate 18 18 Blood Pressure 126/62 Pulse Oximetry 99 Oxygen Delivery Oxygen Flow Rate Fraction of Inspired Oxygen 25 12/19/22 00:12 12/19/22 00:12 12/19/22 00:00 Temperature Pulse Rate 77 77 Respiratory Rate 18 18 Blood Pressure Pulse Oximetry 100 Oxygen Delivery Mechanical Ventilation Oxygen Flow Rate Fraction of Inspired Oxygen 25 12/18/22 20:00 12/19/22 00:00 12/18/22 23:08 Temperature Pulse Rate 98 83 78 Respiratory Rate Blood Pressure Pulse Oximetry 98 Oxygen Delivery Mechanical Ventilation Oxy
--- NOTE | 2022-12-19 17:27 | PC.NURSE ---
Spoke with Dr. Ignacio regarding pt's BP. Cele Garnica, MANAGED CARE SPECIALIST ordered 10mg Hydralazine IVP x1. RN administered at 1600. Pt's BP has decreased to 160's SBP. MANAGED CARE SPECIALIST's note states to start pt on PRN Hydralazine, but nothing was ordered. New order, from Dr. Ignacio, for Labetalol gtt to maintain SBP <160, and to repeat ABG now and call with results.
[2022-12-19 17:49] LABS: Glucose Point of Care 192 mg/dl (65-105)
[2022-12-19] MEDS: dexmedeTOMIDine 400 MCG/100 ML 400 MCG/100 ML BAG 10.28 MCG IV CONT (17:52)
[2022-12-19 17:58] LABS: Alveolar/Arterial O2 Gradient 143.1 mmHg; Base Excess ABG 0.4 mEq/l (+/-2.0); Fractional Inspired Oxygen 40 %; Oxygen Content ABG 15.2 %vol (16.0-22.0); Oxygen Saturation ABG 97.4 % (95.0-100.0); Oxyhemoglobin 95.9 % THb (90.0-100.0); PCO2 ABG 40.2 mmHg (35.0-45.0); PO2 ABG 95.9 mmHg (80.0-100.0); Total Hemoglobin 11.2 g/dL (12.0-18.0); pH ABG 7.411 (7.350-7.450)
[2022-12-19 18:00] LABS: Device NON-INVASIVE VENT; Modified Allen's Test Pass; Site Drawn LEFT RADIAL
[2022-12-19 18:01] LABS: Non-Invasive Expiratory Pressure 8 CMH2O; Non-Invasive Inspiratory Pressure 14 CMH2O; Non-Invasive Vent Rate 12 /MIN
--- NOTE | 2022-12-19 18:29 | PC.NURSE ---
Spoke with Dr. Ignacio regarding Hydralazine order form Cele Garnica NP. New order to stop scheduled hydralazine and continue Labetalol drip. Informed Dr. Ignacio of swelling to right groin area. Area pliable, no new bruising noted but now swollen and elevated. New order for stat CBC. Notified Dr. Ignacio of ABG results as well, with new orders to decrease FiO2 to 35%
[2022-12-19 18:43] LABS: Hematocrit 28.1 % (42.0-52.0); Mean Corpuscular Volume 96.9 fl (80-100); Mean Platelet Volume 10.1 fl (7.4-10.4); Platelet Count Result 123 k/mm3 (150-375); Red Cell Distribution Width 15.3 % (11.5-14.5); White Blood Count 9.1 K/mm3 (4.5-10.0)
[2022-12-19] MEDS: LABETALOL HCL INJ 200 MG in DEXTROSE 5% IN WATER 160 ML 30 MG IV CONT (19:50)
[2022-12-19 20:27] LABS: Glucose Point of Care 259 mg/dl (65-105)
[2022-12-19] MEDS: hydrALAZINE HCL 20 MG/ML VIAL IV PUSH (21:31)
[2022-12-19] MEDS: niCARdipine 20 MG/200 ML 20 MG/200 ML BAG 50 MG IV CONT (21:32)
[2022-12-20] VITALS (49 sets, daily range): BP systolic 87–163; BP diastolic 47–71; PULSE 67–106; RESP 14–30; TEMP 36.5–37.2; O2SAT 92–100
[2022-12-20] MEDS: INSULIN ASPART (*BKC) 100 UNITS/ML SUB-Q ×5 (00:01→20:29)
[2022-12-20] MEDS: methylPREDNISolone SOD SUCC 40 MG VIAL IV PUSH ×3 (00:01→13:59)
[2022-12-20 00:16] LABS: Glucose Point of Care 294 mg/dl (65-105)
[2022-12-20] MEDS: ALBUTEROL SULFATE NEB 2.5 MG/3 ML INH INHALATION ×4 (01:59→21:00)
[2022-12-20] MEDS: IPRATROPIUM BR 0.02% INH SOLN 0.5 MG/2.5 ML VIAL INHALATION ×4 (01:59→21:00)
[2022-12-20] MEDS: dexmedeTOMIDine 400 MCG/100 ML 400 MCG/100 ML BAG 10.28 MCG IV CONT (03:32)
[2022-12-20 05:00] LABS: Alveolar/Arterial O2 Gradient 76.6 mmHg; Base Excess ABG -0.1 mEq/l (+/-2.0); Carboxyhemoglobin 0.3 % THb (0-2.0); Fractional Inspired Oxygen 30 %; HCO3 ABG 24.9 mEq/l (22.0-26.0); Methemoglobin ABG 0.3 %THb (0-1.5); Oxygen Content ABG 13.9 %vol (16.0-22.0); Oxygen Saturation ABG 96.6 % (95.0-100.0); Oxyhemoglobin 94.9 % THb (90.0-100.0); PO2 FiO2 Ratio Arterial Blood 2.93 %; Reduced Hemoglobin 4.5 %THb (0-5.0); Total Hemoglobin 10.3 g/dL (12.0-18.0)
[2022-12-20 05:02] LABS: Device NON-INVASIVE VENT; Modified Allen's Test Unable to perform; Non-Invasive Expiratory Pressure 8 CMH2O; Non-Invasive Inspiratory Pressure 14 CMH2O; Non-Invasive Vent Rate 12 /MIN; Site Drawn LEFT RADIAL
[2022-12-20] MEDS: metroNIDAZOLE 500 MG/ISO 100ML 500 MG/100 ML BAG 100 MG IVPB ×3 (05:35→22:40)
[2022-12-20] MEDS: CENTRAL LINE FLUSH 10 ML IV PUSH ×3 (05:36→23:44)
[2022-12-20 05:44] LABS: Glucose Point of Care 302 mg/dl (65-105)
[2022-12-20 05:51] LABS: Basophils Percent Auto 0.3 % (0.2-1.2); Hematocrit 27.2 % (42.0-52.0); Hemoglobin 8.9 g/dL (14.0-18.0); Immature Granulocyte Absolute 0.05 K/mm3 (0.00-0.031); Immature Granulocyte Percent A 0.8 % (0-0.5); Lymphocytes Absolute Auto 0.28 K/mm3 (0.9-3.2); Lymphocytes Percent Auto 4.4 % (18.3-44.2); Mean Corpuscular HGB Conc 32.7 g/dl (32-36); Mean Corpuscular Hemoglobin 31.8 pg (26-34); Mean Corpuscular Volume 97.1 fl (80-100); Mean Platelet Volume 10.7 fl (7.4-10.4); Monocytes Absolute Auto 0.2 K/mm3 (0.1-0.6); Monocytes Percent Auto 2.3 % (2.6-8.5); Neutrophils Absolute Auto 5.9 K/mm3 (1.3-6.7); Neutrophils Percent Auto 92.2 % (45.5-73.1); Platelet Count Result 124 k/mm3 (150-375); White Blood Count 6.4 K/mm3 (4.5-10.0)
[2022-12-20 06:08] LABS: Alanine Aminotransferase 18 U/L (6-50); Albumin Level 3.9 g/dL (3.5-5.1); Alkaline Phosphatase 81 U/L (38-126); Anion Gap 13 mmol/L (8-16); Aspartate Amino Transferase 22 U/L (17-59); Bilirubin,Total 0.8 mg/dL (0.2-1.3); Blood Urea Nitrogen 74 mg/dL (9-20); Calcium 9.7 mg/dL (8.4-10.2); Carbon Dioxide 26 mmol/L (22-30); Chloride 91 mmol/L (98-107); Estimated CRCL calculation 9 ml/min; Estimated Glomerular Filt Rate 6; Glucose 314 mg/dL (65-110); Magnesium 2.3 mg/dL (1.6-2.3); Phosphorus 7.1 mg/dL (2.5-4.5); Potassium 6.1 mmol/L (3.4-5.0); Sodium 130 mmol/L (137-145); Triglycerides 107 mg/dL (<150)
[2022-12-20 08:15] LABS: Glucose Point of Care 328 mg/dl (65-105)
--- NOTE | 2022-12-20 08:19 | WPDINTPN ---
Progress Note: A&P Assessment and Plan (1) Acute respiratory failure: Code(s): J96.00 - Acute respiratory failure, unspecified whether with hypoxia or hypercapnia Status: Acute Assessment and Plan: On presentation patient had bilateral pulmonary opacities suggestive of pulmonary edema 12/16 he was intubated post cardiac catheterization and chest x-ray showed worsening of diffuse bilateral interstitial edema although pneumonia could not be excluded CT scan showed?2. Small bilateral pleural effusions with large region of consolidation in the right lower lobe and a severe patchy airspace opacity left lower lobe which is concerning for pneumonia. Acute respiratory failure secondary to pulmonary edema and possible community-acquired pneumonia but this also could be an aspiration during or post catheterization or during intubation since intubation was emergent. Negative COVID influenza PCR, pending sputum culture, blood culture, procalcitonin level 2.5 Continue empiric Levaquin and Flagyl ([id number]) 12/19 patient was extubated but developed respiratory distress post extubation and also had stridor. Patient was given racemic epi, Solu-Medrol and placed on BiPAP, respiratory status has improved. ABG reviewed. Minimal stridor on auscultation this morning Patient is now getting dialysis. Will try to wean him off BiPAP post dialysis (2) Chest pain: Qualifiers: Chest pain type: unspecified Qualified Code(s): R07.9 - Chest pain, unspecified Code(s): R07.9 - Chest pain, unspecified Status: Acute Assessment and Plan: Patient presented with chest pain with nausea, vomiting, diaphoresis and radiation to the left arm. -patient was transferred to the ICU from intermediate Unit on early hours of 12/16/2022 for increasing chest pain and requiring nitroglycerin infusion Cardiac catheterization 1.? ? Coronary artery disease with high-grade 95-99% in stent proximal LAD restenoses in this device that was deployed in August of 2019. 2.? ? Small vessel diffuse disease in the remainder of the LAD 3. ? severe hypertension 4. ? moderate disease of 80% stenosis in a small to medium-sized posterolateral branch of the RCA 5. ? patient known to have moderate aortic stenosis this was not evaluated in the labor relations manager today 6. ? right femoral groin puncture site hematoma as a complication of this procedure resulting from the vessel having to be punctured/accessed twice Continue aspirin Plavix and statin. Beta-sakshi Echocardiogram Summary ? 1. Normal left ventricular size with moderate concentric hypertrophy. Hyperdynamic left ventricular systolic function with ejection fraction greater than 70%.? Grade 2 diastolic dysfunction is present no segmental wall motion abnormalities. ? 2. Moderate aortic stenosis with a Vmax of 3.1 M/S, mean gradient 21 mmHg, and LILLY 1.4-1.5 cm2.? Moderate aortic valve calcification. ? 3. Minor increased late peaking intraventricular flow velocity with a peak LVOT of 1.3 M/S, corresponding to no significant intraventricular gradient. ? 4. There is mild tricuspid valve regurgitation. ? 5. No pulmonary hypertension, estimated pulmonary arterial systolic pressure is 25 mmHg. ? 6. Left atrial chamber dimension is moderately enlarged. ? 7. Normal sinus rhythm. (3) ESRD on hemodialysis: Code(s): N18.6 - End stage renal disease; Z99.2 - Dependence on renal dialysis Status: Acute Assessment and Plan: Nephrology is following Patient was dialyzed 12/16 and is again getting ultrafiltration 12/17 12/18 he was again dialyzed and 2.5 L fluid was removed. Post dialysis patient did have tachycardia and ectopy and received a small bolus of albumin, increase in sedation and IV Toradol 12/20 patient is scheduled for another dialysis session today (4) Hematoma: Code(s): T14.8XXA - Other injury of unspecified body region, initial encounter Status: Acute Assessment and Plan: Patient double h
[2022-12-20] MEDS: PANTOPRAZOLE SODIUM IV 40 MG VIAL IV PUSH ×2 (08:52→20:30)
[2022-12-20] MEDS: MINERAL OIL/WHITE PETROLATUM OINTMENT 1 APPLIC EACH EYE (08:53)
[2022-12-20] MEDS: ALBUMIN HUMAN 25% 12.5 GM/50ML 100 ML 50 GM (09:01)
[2022-12-20] MEDS: INSULIN GLARGINE (*BKC) 100 UNITS/ML 15 UNITS SUB-Q (09:03)
--- NOTE | 2022-12-20 09:04 | PM.PNNEP ---
Progress Note: A&P Assessment and Plan (1) End stage renal disease: Code(s): N18.6 - End stage renal disease Status: Chronic Assessment and Plan: HD today continue M/W/F outpatient dialysis schedule follow electrolytes, volume status, and clearance primary clinical dietitian = Ashish Vega MD (at [facility] in [place], [place]) (2) Chest pain: Qualifiers: Chest pain type: unspecified Qualified Code(s): R07.9 - Chest pain, unspecified Code(s): R07.9 - Chest pain, unspecified Status: Acute Assessment and Plan: as noted on admission transferred to ICU on 12/16 due increasing chest pain and requiring nitroglycerin infusion s/p cardiac catheterizaton with findings and intervention noted Cardiology following continue supportive therapy (3) Hyperkalemia: Code(s): E87.5 - Hyperkalemia Status: Chronic Assessment and Plan: chronic issue/problem on [facility] on non-dialysis days as an outpatient follow trend of K+ (4) Acute respiratory failure: Code(s): J96.00 - Acute respiratory failure, unspecified whether with hypoxia or hypercapnia Status: Acute Assessment and Plan: due to fluid overload/pulmonary edema precipitated by hypertensive urgency along with pneumonia was intubated and on mechanical ventilation extubated on 12/19/22 requiring BiPAP support - wean as tolerated continue fluid removal as tolerated follow respiratory status closely (5) Hypertension: Code(s): I10 - Essential (primary) hypertension Status: Acute Assessment and Plan: seems to fluctuate to extremes noted issues/problems with intradialytic hypotension follow trend of hemodynamics (6) Anemia: Code(s): D64.9 - Anemia, unspecified Status: Chronic Assessment and Plan: partly due to ESRD and acute illness Epogen with HD PRBC transfusion per protocol follow trend of H/H (7) Diabetes mellitus type 1.5: Code(s): E13.9 - Other specified diabetes mellitus without complications Status: Chronic Assessment and Plan: follow accu-cheks glycemic control by hospitalists/intensivists Will continue to follow. Subjective Date/time seen: 12/20/22 09:04 Interval history: Follow-up for end stage renal disease on hemodialysis. Tolerating dialysis at the time of my visit (seen on HD at 8:55AM); fluctuating hemodynamics making fluid removal challenging; remains on BiPAP therapy following extubation yesterday; respiratory status seems better at this time; temperature curve has improved; high K+ noted by AM labs; no other issues/events overnight or earlier this morning. Exam Narrative: General: WD/WN male on BiPAP therapy Heart: normal S1 and S2; no rub Lungs: coarse breath sounds noted Abdomen: soft, nontender, nondistended, positive bowel sounds Extremities: no cyanosis or clubbing; trace edema Skin: no nodules Objective Data Vital Signs Vital Signs: Vital Signs Temp Pulse Resp BP Pulse Ox O2 Del Method FiO2 12/20/22 09:00 76 20 12/20/22 08:00 69 20 12/20/22 08:00 69 12/20/22 08:00 69 20 99 BiPAP 30 12/20/22 11:45 78 94/58 L 12/20/22 11:30 76 98/59 L 12/20/22 11:15 74 95/59 L 12/20/22 11:00 72 104/63 12/20/22 10:45 74 96/47 L 12/20/22 10:30 73 113/65 12/20/22 10:15 75 117/71 12/20/22 10:00 72 110/66 12/20/22 09:45 76 109/71 12/20/22 09:30 71 90/62 L 12/20/22 09:15 71 87/55 L 12/20/22 09:00 78 97/62 L 12/20/22 08:45 68 93/59 L 12/20/22 08:30 67 141/69 H 12/20/22 08:23 68 163/71 H 12/20/22 08:13 97.8 F 67 18 155/69 H 98 12/20/22 08:13 30 12/20/22 08:14 69 18 12/20/22 06:00 70 20 12/20/22 04:00 77 12/20/22 07:47 70 19 99 BiPAP 12/20/22 07:46 70 17 10
--- NOTE | 2022-12-20 09:04 | P.PNNP_ITS ---
Progress Note: A&P Assessment and Plan (1) End stage renal disease: Code(s): N18.6 - End stage renal disease Status: Chronic Assessment and Plan: * HD today * continue M/W/F outpatient dialysis schedule * follow electrolytes, volume status, and clearance * primary global marketing coordinator = Ashish Vega MD (at [facility] in [place], [place]) (2) Chest pain: Qualifiers: Chest pain type: unspecified Qualified Code(s): R07.9 - Chest pain, unspecified Code(s): R07.9 - Chest pain, unspecified Status: Acute Assessment and Plan: * as noted on admission * transferred to ICU on 12/16 due increasing chest pain and requiring nitroglycerin infusion * s/p cardiac catheterizaton with findings and intervention noted * Cardiology following * continue supportive therapy (3) Hyperkalemia: Code(s): E87.5 - Hyperkalemia Status: Chronic Assessment and Plan: * chronic issue/problem * on [facility] on non-dialysis days as an outpatient * follow trend of K+ (4) Acute respiratory failure: Code(s): J96.00 - Acute respiratory failure, unspecified whether with hypoxia or hy percapnia Status: Acute Assessment and Plan: * due to fluid overload/pulmonary edema precipitated by hypertensive urgency along with pneumonia * was intubated and on mechanical ventilation * extubated on 12/19/22 * requiring BiPAP support - wean as tolerated * continue fluid removal as tolerated * follow respiratory status closely (5) Hypertension: Code(s): I10 - Essential (primary) hypertension Status: Acute Assessment and Plan: * seems to fluctuate to extremes * noted issues/problems with intradialytic hypotension * follow trend of hemodynamics (6) Anemia: Code(s): D64.9 - Anemia, unspecified Status: Chronic Assessment and Plan: * partly due to ESRD and acute illness * Epogen with HD * PRBC transfusion per protocol * follow trend of H/H (7) Diabetes mellitus type 1.5: Code(s): E13.9 - Other specified diabetes mellitus without complications Status: Chronic Assessment and Plan: * follow accu-cheks * glycemic control by hospitalists/intensivists Will continue to follow. Subjective Date/time seen: 12/20/22 09:04 Interval history: Follow-up for end stage renal disease on hemodialysis. Tolerating dialysis at the time of my visit (seen on HD at 8:55AM); fluctuating hemodynamics making fluid removal challenging; remains on BiPAP therapy following extubation yesterday; respiratory status seems better at this time; temperature curve has improved; high K+ noted by AM labs; no other issues/events overnight or earlier this morning. Exam Narrative: General: WD/WN male on BiPAP therapy Heart: normal S1 and S2; no rub Lungs: coarse breath sounds noted Abdomen: soft, nontender, nondistended, positive bowel sounds Extremities: no cyanosis or clubbing; trace edema Skin: no nodules Objective Data Vital Signs Vital Signs: Vital Signs Temp Pulse Resp BP Pulse Ox O2 Del Method FiO2 12/20/22 09:00 76 20 12/20/22 08:00 69 20 12/20/22 08:00 69 12/20/22 08:00 69 20 99 BiPAP 30 12/20/22 11:45 78 94/58 L 12/20/22 11:30 76 98/59 L 12/20/22 11:15 74 95/59 L
[2022-12-20 09:07] LABS: IFOB Positive Control Positive; Immunochemical Fecal Occult Bl Positive (N)
[2022-12-20] MEDS: EPOETIN ALFA-EPBX 10,000 UNITS/ML VIAL 10000 UNITS IV PUSH (10:40)
--- NOTE | 2022-12-20 11:03 | PCFNICU ---
ICU Rounding Note: Pt current nutrition is NPO. Nutrition recommendation: Advance diet as medically able, once safe to swallow. Last recorded weight is 102.8 kg. Bowel Motility: Last BM + 1 12/20/22 Labs Reviewed: Hgb 8.9, Hct 27.2, Na 130, K+ 6.1, GFR 6, BUN 74, Cre 9.4, Glu 328 Meds Noted: Protonix, albumin, zofran Skin: WNL Additional Notes: Extubated. Pt is currently on Bipap. Having dialysis. Plan is to attempt to wean from bipap after dialysis, evaluate swallow ability and proceed per recommendations. Following daily in ICU rounds. Monitor labs, plan of care, tube feeding tolerance, stool patterns, weights Follow daily in ICU. Reassess Friday and Friday.
--- NOTE | 2022-12-20 11:06 | PCNFU ---
Nutrition Follow-Up Complete: Increased protein energy needs related to mechanical ventilation as evidenced by need for full tube feeding. Complete Updated: Inadequate oral intake related to acute illness as evidenced by NPO status Goal:Meet estimated protein energy needs - Currently NPO, not meeting goal at this time Pt current nutrition is NPO. Nutrition recommendation: Advance diet when pt is okayed to swallow safely Last recorded weight is 102.8 kg. Bowel Motility: +1 BM 12/20/22 Labs Reviewed: Hgb 8.9, Hct 27.2, Na 130, K+ 6.1, GFR 6, BUN 74, Cre 9.4, Glu 328 Meds Noted: protonix, albumin, zofran Skin: WNL Additional Notes: Pt is currently on bipap. Plan is to attempt to wean off bipap after dialysis and then evaluate ability to swallow. Pt will likely need supplements when diet is advanced. Monitor labs, plan of care, tube feeding tolerance, stool patterns, weights, swallow ability Follow daily in ICU. Reassess Friday and Friday
[2022-12-20 11:58] LABS: Glucose Point of Care 177 mg/dl (65-105)
--- NOTE | 2022-12-20 15:52 | PM.IMPN ---
Progress Note: A&P Assessment and Plan (1) End stage renal disease: Code(s): N18.6 - End stage renal disease Status: Chronic (2) Acute respiratory failure: Code(s): J96.00 - Acute respiratory failure, unspecified whether with hypoxia or hypercapnia Status: Acute (3) Anemia: Code(s): D64.9 - Anemia, unspecified Status: Chronic (4) Chest pain: Qualifiers: Chest pain type: unspecified Qualified Code(s): R07.9 - Chest pain, unspecified Code(s): R07.9 - Chest pain, unspecified Status: Acute Plan he is going in the right direction, albeit very slowly. lung exam is quite coarse with rhonchi and rales. at this point we can continue the duonebs and dialysis. only 2.5L was taken off today, he had low BP and they gave albumin. his albumin this AM otherwise was 3.9. suspect this patient is easily tipped over into respiratory failure. he is weaned off bipap now and his HB is trending up which is progress. cont abx and antiplatelets full code. Subjective Date/time seen: 12/20/22 15:52 Interval history: pt off bipap now. he is more awake, tells me he has had better days and reports he is short of breath. but no chest pain and he is doing better relatively than yesterday Review of Systems Review of Systems: All systems reviewed & are unremarkable except as noted in HPI and below Exam Const: General: comfortable Other: mild distress upon movement. appears weak. Eyes: Pupils: Equal, round and reactive pupils present Resp: Auscultation: crackles and rhonchi Cardio: Rate: regular rate Rhythm: regular rhythm GI: GI Palp: Yes Soft to palpation Extrem: General: no edema Objective Data Vital Signs Vital Signs: Vital Signs - 24 hr 12/19/22 16:01 12/19/22 16:00 12/19/22 16:00 Temperature 99.6 F Pulse Rate 88 88 Respiratory Rate 23 H 20 Blood Pressure 185/81 H Pulse Oximetry 100 100 Oxygen Delivery BiPAP Oxygen Flow Rate Fraction of Inspired Oxygen 40 12/19/22 16:00 12/19/22 17:52 12/19/22 17:43 Temperature Pulse Rate 88 88 91 Respiratory Rate 23 H 22 H Blood Pressure Pulse Oximetry 100 Oxygen Delivery BiPAP Oxygen Flow Rate Fraction of Inspired Oxygen 12/19/22 18:00 12/19/22 18:00 12/19/22 19:50 Temperature Pulse Rate 91 91 87 Respiratory Rate 25 H Blood Pressure 167/96 H 180/82 H Pulse Oximetry 100 Oxygen Delivery Oxygen Flow Rate Fraction of Inspired Oxygen 12/19/22 20:00 12/19/22 20:00 12/19/22 21:02 Temperature 99 F Pulse Rate 88 86 Respiratory Rate 23 H Blood Pressure 176/78 H 182/83 H Pulse Oximetry 100 99 Oxygen Delivery BiPAP Oxygen Flow Rate Fraction of Inspired Oxygen 35 12/19/22 20:17 12/19/22 20:18 12/19/22 20:37 Temperature Pulse Rate 87 86 87 Respiratory Rate 22 H Blood Pressure 186/82 H 189/82 H Pulse Oximetry Oxygen Delivery Oxygen Flow Rate Fraction of Inspired Oxygen 12/19/22 20:30 12/19/22 20:30 12/19/22 20:38 Temperature Pulse Rate 87 87 88 Respiratory Rate 22 H 22 H 23 H Blood Pressure Pulse Oximetry 100 Oxygen Delivery BiPAP Oxygen Flow Rate Fraction of Inspired Oxygen 12/19/22 21:32 12/19/22 21:46 12/19/22 22:00 Temperature Pulse Rate 86 84 83 Respiratory Rate Blood Pressure 187/83 H 125/60 Pulse Oximetry Oxygen Delivery Oxygen Flow Rate Fraction of Inspired Oxygen 12/19/22 22:00 12/19/22 20:00 12/19/22 22:00 Temperature Pulse Rate 83 87 83 Respiratory Rate 23 H 22 H Blood Pressure 125/60 Pulse Oximetry 98 Oxygen Delivery Oxygen Flow Rate Fraction of Inspired Oxygen 12/19/22 22:30 12/20/22 00:00 12/20/22 00:00 Temperature 98.5 F Pulse Rate 84 82 83 Respiratory Rate 20 22 H Blood Pressure 121/60 132/61 Pulse Oximetry 99 Oxygen Delivery Oxygen Flow Rate Fraction of Inspired Oxygen 12/20/22 00:00
[2022-12-20 16:39] LABS: Glucose Point of Care 274 mg/dl (65-105)
[2022-12-20 20:26] LABS: Glucose Point of Care 212 mg/dl (65-105)
[2022-12-20] MEDS: ROSUVASTATIN 10 MG TABLET PO (20:30)
[2022-12-20] MEDS: METOPROLOL TARTRATE 25 MG TABLET PO (20:30)
[2022-12-20] MEDS: OLANZapine 5 MG TABLET PO (21:35)
[2022-12-21] VITALS (26 sets, daily range): BP systolic 137–162; BP diastolic 56–72; PULSE 75–93; RESP 13–20; TEMP 36.4–37; O2SAT 93–100
[2022-12-21 00:12] LABS: Glucose Point of Care 196 mg/dl (65-105)
[2022-12-21] MEDS: IPRATROPIUM BR 0.02% INH SOLN 0.5 MG/2.5 ML VIAL INHALATION ×3 (02:28→13:13)
[2022-12-21] MEDS: ALBUTEROL SULFATE NEB 2.5 MG/3 ML INH INHALATION ×3 (02:28→13:13)
[2022-12-21 04:17] LABS: Glucose Point of Care 248 mg/dl (65-105)
[2022-12-21] MEDS: INSULIN ASPART (*BKC) 100 UNITS/ML SUB-Q ×3 (04:17→20:27)
[2022-12-21 05:11] LABS: Basophils Percent Auto 0.4 % (0.2-1.2); Eosinophils Percent Auto 0.1 % (0-4.4); Hematocrit 26.4 % (42.0-52.0); Hemoglobin 8.3 g/dL (14.0-18.0); Immature Granulocyte Absolute 0.08 K/mm3 (0.00-0.031); Lymphocytes Absolute Auto 0.56 K/mm3 (0.9-3.2); Lymphocytes Percent Auto 7.3 % (18.3-44.2); Mean Corpuscular HGB Conc 31.4 g/dl (32-36); Mean Corpuscular Hemoglobin 31.2 pg (26-34); Mean Corpuscular Volume 99.2 fl (80-100); Mean Platelet Volume 9.5 fl (7.4-10.4); Monocytes Absolute Auto 0.5 K/mm3 (0.1-0.6); Monocytes Percent Auto 5.8 % (2.6-8.5); Neutrophils Absolute Auto 6.6 K/mm3 (1.3-6.7); Neutrophils Percent Auto 85.4 % (45.5-73.1); Nucleated Red Blood Cells Perc 0.3 % (0.0-0.2); Platelet Count Result 140 k/mm3 (150-375); Red Blood Count 2.66 M/mm3 (4.6-6.20); Red Cell Distribution Width 15.3 % (11.5-14.5); White Blood Count 7.7 K/mm3 (4.5-10.0)
[2022-12-21 05:21] LABS: Alanine Aminotransferase 20 U/L (6-50); Albumin Level 3.9 g/dL (3.5-5.1); Alkaline Phosphatase 77 U/L (38-126); Anion Gap 10 mmol/L (8-16); Aspartate Amino Transferase 29 U/L (17-59); Blood Urea Nitrogen 63 mg/dL (9-20); Carbon Dioxide 33 mmol/L (22-30); Chloride 95 mmol/L (98-107); Estimated CRCL calculation 11 ml/min; Estimated Glomerular Filt Rate 8; Glucose 214 mg/dL (65-110); Magnesium 2.3 mg/dL (1.6-2.3); Potassium 3.8 mmol/L (3.4-5.0); Sodium 138 mmol/L (137-145)
[2022-12-21] MEDS: metroNIDAZOLE 500 MG/ISO 100ML 500 MG/100 ML BAG 100 MG IVPB ×3 (05:53→21:02)
[2022-12-21] MEDS: CENTRAL LINE FLUSH 10 ML IV PUSH (05:59)
[2022-12-21] MEDS: levoFLOXacin 500 MG/D5W 100 ML 500 MG/100 ML BAG 100 MG IVPB (08:04)
[2022-12-21] MEDS: PANTOPRAZOLE SODIUM IV 40 MG VIAL IV PUSH ×2 (08:04→20:27)
[2022-12-21] MEDS: INSULIN GLARGINE (*BKC) 100 UNITS/ML 15 UNITS SUB-Q (08:04)
[2022-12-21] MEDS: CLOPIDOGREL BISULFATE 75 MG TABLET PO (08:05)
[2022-12-21] MEDS: ASPIRIN 81 MG CHEWABLE TABLET PO (08:05)
[2022-12-21] MEDS: ACETAMINOPHEN 325 MG TABLET 650 MG PO ×2 (08:05→15:02)
[2022-12-21] MEDS: METOPROLOL TARTRATE 25 MG TABLET PO ×2 (08:06→20:27)
[2022-12-21 08:15] LABS: Glucose Point of Care 159 mg/dl (65-105)
--- NOTE | 2022-12-21 08:46 | WPDINTPN ---
Progress Note: A&P Assessment and Plan (1) Acute respiratory failure: Code(s): J96.00 - Acute respiratory failure, unspecified whether with hypoxia or hypercapnia Status: Acute Assessment and Plan: On presentation patient had bilateral pulmonary opacities suggestive of pulmonary edema 12/16 he was intubated post cardiac catheterization and chest x-ray showed worsening of diffuse bilateral interstitial edema although pneumonia could not be excluded CT scan showed?2. Small bilateral pleural effusions with large region of consolidation in the right lower lobe and a severe patchy airspace opacity left lower lobe which is concerning for pneumonia. Acute respiratory failure secondary to pulmonary edema and possible community-acquired pneumonia but this also could be an aspiration during or post catheterization or during intubation since intubation was emergent. Negative COVID influenza PCR, pending sputum culture, blood culture, procalcitonin level 2.5 Continue empiric Levaquin and Flagyl ([id number]) 12/19 patient was extubated but developed respiratory distress post extubation and also had stridor. Patient was given racemic epi, Solu-Medrol and placed on BiPAP, respiratory status has improved. ABG reviewed. Minimal stridor on auscultation this morning 12/20 wore BiPAP most of the day and then was weaned off later in the evening 12/21 on room air. Will order incentive spirometry, continue bronchodilators Continue dialysis per Nephrology to remove fluids BiPAP p.r.n. and at night for now (2) Chest pain: Qualifiers: Chest pain type: unspecified Qualified Code(s): R07.9 - Chest pain, unspecified Code(s): R07.9 - Chest pain, unspecified Status: Acute Assessment and Plan: Patient presented with chest pain with nausea, vomiting, diaphoresis and radiation to the left arm. -patient was transferred to the ICU from intermediate Unit on early hours of 12/16/2022 for increasing chest pain and requiring nitroglycerin infusion Cardiac catheterization 1.? ? Coronary artery disease with high-grade 95-99% in stent proximal LAD restenoses in this device that was deployed in August of 2019. 2.? ? Small vessel diffuse disease in the remainder of the LAD 3. ? severe hypertension 4. ? moderate disease of 80% stenosis in a small to medium-sized posterolateral branch of the RCA 5. ? patient known to have moderate aortic stenosis this was not evaluated in the pharmaceutical laboratory technician today 6. ? right femoral groin puncture site hematoma as a complication of this procedure resulting from the vessel having to be punctured/accessed twice Continue aspirin Plavix and statin. Beta-sakshi Echocardiogram Summary ? 1. Normal left ventricular size with moderate concentric hypertrophy. Hyperdynamic left ventricular systolic function with ejection fraction greater than 70%.? Grade 2 diastolic dysfunction is present no segmental wall motion abnormalities. ? 2. Moderate aortic stenosis with a Vmax of 3.1 M/S, mean gradient 21 mmHg, and LILLY 1.4-1.5 cm2.? Moderate aortic valve calcification. ? 3. Minor increased late peaking intraventricular flow velocity with a peak LVOT of 1.3 M/S, corresponding to no significant intraventricular gradient. ? 4. There is mild tricuspid valve regurgitation. ? 5. No pulmonary hypertension, estimated pulmonary arterial systolic pressure is 25 mmHg. ? 6. Left atrial chamber dimension is moderately enlarged. ? 7. Normal sinus rhythm. (3) ESRD on hemodialysis: Code(s): N18.6 - End stage renal disease; Z99.2 - Dependence on renal dialysis Status: Acute Assessment and Plan: Nephrology is following Patient was dialyzed 12/16 and is again getting ultrafiltration 12/17 12/18 he was again dialyzed and 2.5 L fluid was removed. Post dialysis patient did have tachycardia and ectopy and received a small bolus of albumin, increase in sedation and IV Toradol 12/20 patient is scheduled for another dialysis session today (4) H
[2022-12-21] MEDS: SODIUM ZIRCONIUM CYCLOSILICATE 10 GM POWD.PACK FEED TUBE ×2 (09:17→16:42)
[2022-12-21] MEDS: HYDROcodone/acetaminophen (*CRX) 5-325 MG TABLET 1 TAB PO (10:50)
[2022-12-21 12:12] LABS: Glucose Point of Care 284 mg/dl (65-105)
--- NOTE | 2022-12-21 12:15 | PM.PNNEP ---
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 = Ashish Vega MD (at [facility] in [place], [place]) (2) Chest pain: Qualifiers: Chest pain type: unspecified Qualified Code(s): R07.9 - Chest pain, unspecified Code(s): R07.9 - Chest pain, unspecified Status: Acute Assessment and Plan: as noted on admission transferred to ICU on 12/16 due increasing chest pain and requiring nitroglycerin infusion s/p cardiac catheterizaton with findings and intervention noted Cardiology following continue supportive therapy (3) Hyperkalemia: Code(s): E87.5 - Hyperkalemia Status: Chronic Assessment and Plan: chronic issue/problem on [facility] on non-dialysis days as an outpatient follow trend of K+ (4) Acute respiratory failure: Qualifiers: Respiratory failure complication: hypoxia Qualified Code(s): J96.01 - Acute respiratory failure with hypoxia Code(s): J96.00 - Acute respiratory failure, unspecified whether with hypoxia or hypercapnia Status: Acute Assessment and Plan: resolved due to fluid overload/pulmonary edema precipitated by hypertensive urgency along with pneumonia was intubated and on mechanical ventilation extubated on 12/19/22 was requiring BiPAP support - wean as tolerated continue fluid removal as tolerated follow respiratory status closely (5) Hypertension: Code(s): I10 - Essential (primary) hypertension Status: Acute Assessment and Plan: seems to fluctuate to extremes noted issues/problems with intradialytic hypotension follow trend of hemodynamics (6) Anemia: Qualifiers: Anemia type: unspecified type Qualified Code(s): D64.9 - Anemia, unspecified Code(s): D64.9 - Anemia, unspecified Status: Chronic Assessment and Plan: partly due to ESRD and acute illness Epogen with HD PRBC transfusion per protocol follow trend of H/H (7) Diabetes mellitus type 1.5: Code(s): E13.9 - Other specified diabetes mellitus without complications Status: Chronic Assessment and Plan: follow accu-cheks glycemic control by hospitalists/intensivists Will continue to follow. Subjective Date/time seen: 12/21/22 12:15 Interval history: Follow-up for end stage renal disease on hemodialysis. Tolerated dialysis treatment yesterday without any issues or problems; respiratory status/breathing is doing significantly better at this time; overall, he states he feels better as well; no acute issues/events overnight or earlier this morning; no apparent distress noted. Exam Narrative: General: WD/WN male in NAD Heart: normal S1 and S2; no rub Lungs: clear anteriorly; decreased at bases Abdomen: soft, nontender, nondistended, positive bowel sounds Extremities: no cyanosis or clubbing; trace edema Skin: warm and dry Objective Data Vital Signs Vital Signs: Vital Signs Temp Pulse Resp BP Pulse Ox O2 Del Method O2 Flow Rate 12/21/22 12:00 98 F 83 18 160/68 H 96 12/21/22 12:00 84 17 94 Room Air 12/21/22 10:00 88 16 162/72 H 93 12/21/22 10:00 88 12/21/22 08:00 91 18 95 Room Air 12/21/22 08:00 93 12/21/22 08:06 91 12/21/22 08:00 97.6 F 92 18 154/66 H 95 12/21/22 07:25 93 18 12/21/22 07:15 89 18 12/21/22 07:15 89 18 100 Room Air 12/21/22 06:00 85 15 162/63 H 97 12/21/22 04:00 98.5 F 86 19 137/58 L 100 12/21/22 02:28 84 16 12/21/22 02:00 88 18 150/61 H 100 12/21/22 00:00 98.6 F 93 16 148/68 H 97 12/20/22 22:00 100 18 152/64 H 100 12/20/22 23:47 96
--- NOTE | 2022-12-21 12:15 | P.PNNP_ITS ---
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 = Ashish Vega MD (at [facility] in [place], [place]) (2) Chest pain: Qualifiers: Chest pain type: unspecified Qualified Code(s): R07.9 - Chest pain, unspecified Code(s): R07.9 - Chest pain, unspecified Status: Acute Assessment and Plan: * as noted on admission * transferred to ICU on 12/16 due increasing chest pain and requiring nitroglycerin infusion * s/p cardiac catheterizaton with findings and intervention noted * Cardiology following * continue supportive therapy (3) Hyperkalemia: Code(s): E87.5 - Hyperkalemia Status: Chronic Assessment and Plan: * chronic issue/problem * on [facility] on non-dialysis days as an outpatient * follow trend of K+ (4) Acute respiratory failure: Qualifiers: Respiratory failure complication: hypoxia Qualified Code(s): J96.01 - Acute respiratory failure with hypoxia Code(s): J96.00 - Acute respiratory failure, unspecified whether with hypoxia or hypercapnia Status: Acute Assessment and Plan: * resolved * due to fluid overload/pulmonary edema precipitated by hypertensive urgency along with pneumonia * was intubated and on mechanical ventilation * extubated on 12/19/22 * was requiring BiPAP support - wean as tolerated * continue fluid removal as tolerated * follow respiratory status closely (5) Hypertension: Code(s): I10 - Essential (primary) hypertension Status: Acute Assessment and Plan: * seems to fluctuate to extremes * noted issues/problems with intradialytic hypotension * follow trend of hemodynamics (6) Anemia: Qualifiers: Anemia type: unspecified type Qualified Code(s): D64.9 - Anemia, unspecified Code(s): D64.9 - Anemia, unspecified Status: Chronic Assessment and Plan: * partly due to ESRD and acute illness * Epogen with HD * PRBC transfusion per protocol * follow trend of H/H (7) Diabetes mellitus type 1.5: Code(s): E13.9 - Other specified diabetes mellitus without complications Status: Chronic Assessment and Plan: * follow accu-cheks * glycemic control by hospitalists/intensivists Will continue to follow. Subjective Date/time seen: 12/21/22 12:15 Interval history: Follow-up for end stage renal disease on hemodialysis. Tolerated dialysis treatment yesterday without any issues or problems; res piratory status/breathing is doing significantly better at this time; overall, he states he feels better as well; no acute issues/events overnight or earlier this morning; no apparent distress noted. Exam Narrative: General: WD/WN male in NAD Heart: normal S1 and S2; no rub Lungs: clear anteriorly; decreased at bases Abdomen: soft, nontender, nondistended, positive bowel sounds Extremities: no cyanosis or clubbing; trace edema Skin: warm and dry Objective Data Vital Signs Vital Signs: Vital Signs Temp Pulse Resp BP Pulse Ox O2 Del Method O2 Flow Rate 12/21/22 12:00 98 F 83 18 160/68 H 96 12/21/22 1
--- NOTE | 2022-12-21 12:31 | PM.PNCARD ---
Progress Note: A&P Assessment and Plan (1) Chest pain: Qualifiers: Chest pain type: unspecified Qualified Code(s): R07.9 - Chest pain, unspecified Code(s): R07.9 - Chest pain, unspecified Status: Acute Assessment and Plan: Unstable angina secondary to restenosis of previously placed LAD stent which was addressed with balloon angioplasty with a good anatomical result. Continue ASA, statin, Plavix Continue risk factor modification for CAD He did have a hematoma following LHC but this is stable, CTA showed no intra abdominal hemorrhage. H&H stable today. Daily CBC Hypertensive since extubation. Receiving labetalol without improvement. Will give IV hydralazine 10mg We will continue to follow (2) Acute respiratory failure: Qualifiers: Respiratory failure complication: hypoxia Qualified Code(s): J96.01 - Acute respiratory failure with hypoxia Code(s): J96.00 - Acute respiratory failure, unspecified whether with hypoxia or hypercapnia Status: Acute Assessment and Plan: Flash pulmonary edema and acute hypoxic respiratory failure post cardiac catheterization now extubated, doing well with BiPAP overnight. Possible aspiration pneumonia? Patient remains on levofloxacin, metronidazole for treatment. Management per Critical Care and Primary Service. (3) CAD (coronary artery disease): Qualifiers: Coronary Disease-Associated Artery/Lesion type: [place] artery [place] vs. transplanted heart: [place] heart Associated angina: without angina Qualified Code(s): I25.10 - Atherosclerotic heart disease of [place] coronary artery without angina pectoris Code(s): I25.10 - Atherosclerotic heart disease of [place] coronary artery without angina pectoris Status: Acute Assessment and Plan: Stable, no anginal symptoms. Continue dual antiplatelet therapy with aspirin 81 mg daily and clopidogrel 75 mg daily. (4) Anemia: Qualifiers: Anemia type: unspecified type Qualified Code(s): D64.9 - Anemia, unspecified Code(s): D64.9 - Anemia, unspecified Status: Chronic Assessment and Plan: Patient remains anemic but H&H is stable. No need for transfusion at this time. Monitor for bleeding. (5) Hypertension: Code(s): I10 - Essential (primary) hypertension Status: Acute Assessment and Plan: BP stable but elevated. Continue amlodipine 10 mg daily. Continue metoprolol tartrate 25 mg twice daily. (6) ESRD on hemodialysis: Code(s): N18.6 - End stage renal disease; Z99.2 - Dependence on renal dialysis Status: Acute Assessment and Plan: Continue hemodialysis as scheduled for volume management. Nephrology following (7) SHEYLA on CPAP: Code(s): G47.33 - Obstructive sleep apnea (adult) (pediatric) Status: Acute Assessment and Plan: Continue BiPAP support treatment of SHEYLA. Subjective Date/time seen: Date of service: 12/21/22 12:31 Interval history: Cardiology follow up for NSTEMI, CAD Date of service 12/17/2022: Patient had acute respiratory distress yesterday upon arrival to the ICU from phlebotomist lab assistant and is now intubated. Date of service 12/19/22: Extubated this morning but on BiPAP because of respiratory distress after extubation. Date of service 12/21/2022: Patient feeling better. Denies chest pain or shortness of breath. Wore BiPAP last night. No new issues. and family at bedside. He remains hypertensive with blood pressures in the 140s to 160s range generally. Review of Systems Review of Systems: Remainder review of systems otherwise negative. Constitutional: Constitutional: Reports lethargy Eyes: Eyes: Reports no additional eye complaints ENT: Reports system reviewed and no additional complaints, except as documented Cardiovascular: Cardiovascular: Reports as per HPI and Reports chest pain Respiratory: Respiratory: Reports no additional resp
--- NOTE | 2022-12-21 15:31 | PM.IMPN ---
Progress Note: A&P Assessment and Plan (1) CAD (coronary artery disease): Qualifiers: Coronary Disease-Associated Artery/Lesion type: [place] artery [place] vs. transplanted heart: [place] heart Associated angina: without angina Qualified Code(s): I25.10 - Atherosclerotic heart disease of [place] coronary artery without angina pectoris Code(s): I25.10 - Atherosclerotic heart disease of [place] coronary artery without angina pectoris Status: Acute (2) Anemia: Qualifiers: Anemia type: unspecified type Qualified Code(s): D64.9 - Anemia, unspecified Code(s): D64.9 - Anemia, unspecified Status: Chronic (3) End stage renal disease: Code(s): N18.6 - End stage renal disease Status: Chronic (4) Acute respiratory failure: Qualifiers: Respiratory failure complication: hypoxia Qualified Code(s): J96.01 - Acute respiratory failure with hypoxia Code(s): J96.00 - Acute respiratory failure, unspecified whether with hypoxia or hypercapnia Status: Acute (5) Hematoma: Code(s): T14.8XXA - Other injury of unspecified body region, initial encounter Status: Acute (6) Anemia in chronic kidney disease, on chronic dialysis: Code(s): N18.6 - End stage renal disease; D63.1 - Anemia in chronic kidney disease; Z99.2 - Dependence on renal dialysis Status: Acute Plan 62M w/ PMH morbid obesity, CAD s/p stents, HTN, SHEYLA, AOCD, IDDM, ESRD on dialysis MWF s/p COVID w/ severe infection in 2019. Pt presented complaining of chest pain and dx with unstable angina 2/2 restenosis of LAD stent s/p balloon angioplasty on 12/16. Post procedure complicated by acute hypoxic respiratory failure likely 2/2 HCAP. 1) angina/restenosis of LAD stent, s/p balloon angioplasty on 12/16 - chest pain resolved - cont aspirin and plavix, and beta sakshi - appreciate cardiology recs 2) acute on chronic anemia of chronic disease in ESRD patient - s/p 3 units pRBC, last on 12/18. had hematoma from cath puncture site x2, CT angiogram did not demonstrate active bleeding. HB now stable in 8's. CTM. avoid further anticoagulation for now - stool occult +, GI consulted. 3) acute hypoxic respiratory failure - post cath on 12/16, remain intubated 2/2 to respiratory distress and hypoxia and pulmonary edema. since extubated and on RA on 12/16. respiratory distress resolved. cont dialysis 4) HCAP - 12/17 levaquin and flagyl started, blood cultures NGTD - CT chest demonstrated small b/l pleural effusions with b/l consolidations 5) ESRD MWF - nephrology following - cont dialysis, continue [facility] 6) SHEYLA - CPAP at night 7) IDDM - accuchecks and ISS 8) hypertensive urgency - was on nicadipine gtt temporarily, now on amlodipine and metoprolol with prn hydralazine. goal SBP 140-180, he does drop during dialysis, requiring albumin FEN: cardiac diabetic diet, saline lock IV GI prophylaxis: protonix DVT prophylaxis: SCD's only Lines: pIV Code Status: Full Code Dispo: continue with cardiopulmonary rehab, PT and OT consulted, evaluate for further needs and possible SNF. pt much improved and stable. More than 35 minutes spent on chart review, patient interaction and assessment and plan. Subjective Date/time seen: 12/21/22 15:31 Interval history: NAOE. pt is on RA now, appears stronger and voicing his content with his improvement. he denies chest pain or shortness of breath. he denies any abdominal pain Review of Systems Review of Systems: All systems reviewed & are unremarkable except as noted in HPI and below Exam Const: General: comfortable and no acute distress Other: obese Eyes: Pupils: Equal, round and reactive pupils present Resp: Effort & Inspection: normal respiratory effort Auscultation: rhonchi (diffuse, greater on left) Cardio: Rate: regular rate Rhythm: regular rhythm Heart sounds: Murmur heart sound present and no rubs GI: Inspection: non-distend
[2022-12-21] MEDS: amLODIPine BESYLATE 5 MG TABLET 10 MG PO (16:42)
[2022-12-21 16:47] LABS: Glucose Point of Care 168 mg/dl (65-105)
--- NOTE | 2022-12-21 18:32 | WPDGICN ---
Assessment and Plan Assessment and plan (1) Anemia in chronic kidney disease, on chronic dialysis: Code(s): N18.6 - End stage renal disease; D63.1 - Anemia in chronic kidney disease; Z99.2 - Dependence on renal dialysis Status: Acute Assessment and Plan: anemia is multifactorial from esrd, recent hematoma after LHC, etc no overt gib, FOBT probably could be perianal he will need colonoscopy but once he is fully recovered from acute cardiac condition, this can be arranged as outpatient in several more weeks, this is not urgent he had colonoscopy about 10 years ago of course if signs of bleeding during hospitalization then will reassess (2) End stage renal disease: Code(s): N18.6 - End stage renal disease Status: Chronic Assessment and Plan: on dialysis (3) Acute respiratory failure: Qualifiers: Respiratory failure complication: hypoxia Qualified Code(s): J96.01 - Acute respiratory failure with hypoxia Code(s): J96.00 - Acute respiratory failure, unspecified whether with hypoxia or hypercapnia Status: Acute Assessment and Plan: this has improved extubated (4) Hematoma: Code(s): T14.8XXA - Other injury of unspecified body region, initial encounter Status: Acute Assessment and Plan: causing also anemia (5) CAD (coronary artery disease): Qualifiers: Coronary Disease-Associated Artery/Lesion type: [place] artery [place] vs. transplanted heart: [place] heart Associated angina: without angina Qualified Code(s): I25.10 - Atherosclerotic heart disease of [place] coronary artery without angina pectoris Code(s): I25.10 - Atherosclerotic heart disease of [place] coronary artery without angina pectoris Status: Acute (6) Occult blood positive stool: Code(s): R19.5 - Other fecal abnormalities Status: Acute (7) Unstable angina: Code(s): I20.0 - Unstable angina Status: Acute Assessment and Plan: treated medically GI Consult Note Consult date/time: 12/21/22 18:32 Reason for consult: acute on chronic anemia, FOBT + HPI: Juanito Marroquin is a 62 year old male history of end-stage renal disease on dialysis (M, W, F), chronic anemia, coronary artery disease status post stents x2 at [facility], essential hypertension, obstructive sleep apnea on CPAP, diabetes presented the ED on 12/15/2022 with complaints of chest pain with radiation to the left arm, associated diaphoresis, nausea, vomiting and dizziness.?He was found to have unstable angina and taken for cardiac cath, found to have artery disease and treated medically but also developed hematoma Rt groin, he was intubated in ICU for few days but recovered and now extubated and better. He is on plavix and aspirin. Noted worsening anemia, no overt gib but fobt positive. Hg stable though. Last colonoscopy about 10 years ago. Review of Systems Constitutional: Constitutional: Denies chills Eyes: Eyes: Denies blurry vision ENT: Reports Normal hearing present Cardiovascular: Cardiovascular: Reports chest pain Respiratory: Respiratory: Reports dyspnea Gastrointestinal: Gastrointestinal: Denies nausea Genitourinary: Genitourinary: Denies urinary urgency Musculoskeletal: Musculoskeletal: Denies neck pain Integumentary/Breasts: Skin/Breast: Denies rash Neurologic: Denies Abnormal speech present [facility] Past Medical History Medical History (Updated 12/21/22 @ 18:36 by Coleman Yañez MD) Acute hyperkalemia Acute on chronic anemia Anemia in chronic kidney disease, on chronic dialysis CAD (coronary artery disease) Diabetes mellitus type 1.5 ESRD on hemodialysis Hypertension Occult blood positive stool SHEYLA on CPAP Unstable angina Surgical History Surgical History H/O heart artery stent Family History Family History (Updated 12/15/22 @ 18:42 by Rhoda Hand
[2022-12-21] MEDS: FLUTICASONE/SALMETEROL 115-21 MCG INHALER 1 PUFF 2 PUFF INHALATION (20:18)
[2022-12-21] MEDS: ROSUVASTATIN 10 MG TABLET PO (20:27)
[2022-12-21] MEDS: OLANZapine 5 MG TABLET PO (20:27)
[2022-12-21 21:06] LABS: Glucose Point of Care 328 mg/dl (65-105)
[2022-12-22] VITALS (21 sets, daily range): BP systolic 153–165; BP diastolic 56–74; PULSE 68–104; RESP 16–24; TEMP 35.9–36.9; O2SAT 93–100
--- NOTE | 2022-12-22 00:05 | PC.NURSE ---
This patient, Juanito Marroquin, was received from [ICU-4 ] on 12/22/22 at 2345. Patient/family oriented to unit policies and routines
--- NOTE | 2022-12-22 02:23 | PC.NURSE ---
Patient transferred to IMU room 213 at 2340. Transferred with belonging and bipap. Manuel Browning RN receiving nurse.
[2022-12-22] MEDS: metroNIDAZOLE 500 MG/ISO 100ML 500 MG/100 ML BAG 100 MG IVPB ×3 (05:27→21:41)
[2022-12-22 05:34] LABS: Basophils Absolute Auto 0.1 K/mm3 (0.0-0.1); Basophils Percent Auto 0.8 % (0.2-1.2); Eosinophils Absolute Auto 0.2 K/mm3 (0-0.3); Eosinophils Percent Auto 2.5 % (0-4.4); Hematocrit 28.3 % (42.0-52.0); Hemoglobin 8.9 g/dL (14.0-18.0); Immature Granulocyte Absolute 0.19 K/mm3 (0.00-0.031); Immature Granulocyte Percent A 2.7 % (0-0.5); Lymphocytes Absolute Auto 0.91 K/mm3 (0.9-3.2); Lymphocytes Percent Auto 12.7 % (18.3-44.2); Mean Corpuscular HGB Conc 31.4 g/dl (32-36); Mean Corpuscular Volume 98.6 fl (80-100); Mean Platelet Volume 9.6 fl (7.4-10.4); Monocytes Absolute Auto 0.6 K/mm3 (0.1-0.6); Monocytes Percent Auto 8.4 % (2.6-8.5); Neutrophils Absolute Auto 5.2 K/mm3 (1.3-6.7); Neutrophils Percent Auto 72.9 % (45.5-73.1); Nucleated Red Blood Cells Perc 0.3 % (0.0-0.2); Platelet Count Result 150 k/mm3 (150-375); Red Blood Count 2.87 M/mm3 (4.6-6.20); Red Cell Distribution Width 14.7 % (11.5-14.5); White Blood Count 7.2 K/mm3 (4.5-10.0)
[2022-12-22 05:43] LABS: INR 1.3
[2022-12-22 06:03] LABS: Anion Gap 16 mmol/L (8-16); Blood Urea Nitrogen 81 mg/dL (9-20); Calcium 9.1 mg/dL (8.4-10.2); Carbon Dioxide 26 mmol/L (22-30); Chloride 95 mmol/L (98-107); Estimated CRCL calculation 9 ml/min; Estimated Glomerular Filt Rate 6; Glucose 153 mg/dL (65-110); Magnesium 2.4 mg/dL (1.6-2.3); Potassium 3.5 mmol/L (3.4-5.0); Sodium 137 mmol/L (137-145)
[2022-12-22 07:04] LABS: Procalcitonin 4.1 ng/mL
[2022-12-22 08:47] LABS: Glucose Point of Care 154 mg/dl (65-105)
--- NOTE | 2022-12-22 09:04 | WPDGIPROGNO ---
Progress Note: A&P Assessment and Plan (1) Occult blood positive stool: Code(s): R19.5 - Other fecal abnormalities Status: Acute Assessment and Plan: he can arrange colonoscopy as outpatient, not urgent could be perianal anemia also from ESRD, large hematoma after LCH and other conditions h/h stable, no signs of GIB will follow from [place], call if questions (2) Acute on chronic anemia: Code(s): D64.9 - Anemia, unspecified Status: Acute (3) Unstable angina: Code(s): I20.0 - Unstable angina Status: Acute Assessment and Plan: on medical treatment (4) CAD (coronary artery disease): Qualifiers: Coronary Disease-Associated Artery/Lesion type: [place] artery [place] vs. transplanted heart: [place] heart Associated angina: without angina Qualified Code(s): I25.10 - Atherosclerotic heart disease of [place] coronary artery without angina pectoris Code(s): I25.10 - Atherosclerotic heart disease of [place] coronary artery without angina pectoris Status: Acute (5) End stage renal disease: Code(s): N18.6 - End stage renal disease Status: Chronic Subjective Date/time seen: 12/22/22 09:04 Interval history: moved to floor, no report of gib he is having regular breakfast and he is comfortable Review of Systems Review of Systems: All systems reviewed & are unremarkable except as noted in HPI and below Exam Narrative: General: Pleasant patient in no acute HEENT:? Pupils equal and reactive, sclera is clear, moist oral mucosa Neck:? Supple Respiratory:? Clear breath sounds bilaterally decreased at bases, adequate air entry, no wheezing Cardiac:? S1-S2 was normal, regular rate and rhythm, 3/6 murmur at the right upper sternal border Abdomen:? Soft, nontender, nondistended, normoactive bowel sounds Extremities:? no edema Neuro:? Awake, alert, follows commands with all 4 extremities, answers questions appropriately Skin:? Warm and dry Large hematoma Rt groin Psych:? Normal mentation and affect Objective Data Vital Signs Vital Signs: Vital Signs - 24 hr 12/21/22 10:00 12/21/22 10:00 12/21/22 12:00 Temperature Pulse Rate 88 88 84 Respiratory Rate 16 17 Blood Pressure 162/72 H Pulse Oximetry 93 94 Oxygen Delivery Room Air 12/21/22 12:00 12/21/22 12:00 12/21/22 13:15 Temperature 98 F Pulse Rate 83 82 82 Respiratory Rate 18 16 Blood Pressure 160/68 H Pulse Oximetry 96 Oxygen Delivery 12/21/22 13:24 12/21/22 14:00 12/21/22 15:25 Temperature Pulse Rate 84 77 80 Respiratory Rate 18 18 Blood Pressure Pulse Oximetry 96 Oxygen Delivery Room Air 12/21/22 16:00 12/21/22 16:00 12/21/22 17:49 Temperature 97.6 F Pulse Rate 83 83 89 Respiratory Rate 14 Blood Pressure 144/56 H Pulse Oximetry 99 Oxygen Delivery 12/21/22 18:03 12/21/22 20:22 12/21/22 20:23 Temperature Pulse Rate 87 88 89 Respiratory Rate 19 16 18 Blood Pressure 149/61 H Pulse Oximetry 100 94 Oxygen Delivery Room Air 12/21/22 20:27 12/21/22 20:00 12/21/22 20:00 Temperature 98.4 F Pulse Rate 87 87 87 Respiratory Rate 13 13 Blood Pressure 152/66 H Pulse Oximetry 95 95 Oxygen Delivery Room Air 12/21/22 20:00 12/21/22 23:05 12/21/22 23:09 Temperature 97.6 F Pulse Rate 90 80 92 Respiratory Rate 20 18 Blood Pressure 161/66 H Pulse Oximetry 98 98 Oxygen Delivery BiPAP 12/21/22 22:00 12/22/22 00:00 12/22/22 02:00 Temperature Pulse Rate 75 86 80 Respiratory Rate Blood Pressure Pulse Oximetry Oxygen Delivery 12/22/22 04:00 12/22/22 04:00 12/22/22 06:00 Temperature 96.6 F L Pulse Rate 75 80 80 Respiratory Rate 18 Blood Pressure 157/56 H Pulse Oximetry 100 Oxygen Delivery 12/21/22 13:11 Temperature 98 F Pulse Rate 82 Respiratory Rate 18 Blood Pressure 160/68 H Pulse Oximetry 96 Oxygen Delivery Intake/Output Intake/Output: In
[2022-12-22] MEDS: ASPIRIN 81 MG CHEWABLE TABLET PO (09:07)
[2022-12-22] MEDS: INSULIN GLARGINE (*BKC) 100 UNITS/ML 15 UNITS SUB-Q (09:07)
[2022-12-22] MEDS: CLOPIDOGREL BISULFATE 75 MG TABLET PO (09:07)
[2022-12-22] MEDS: METOPROLOL TARTRATE 25 MG TABLET PO ×2 (09:08→20:27)
[2022-12-22] MEDS: PANTOPRAZOLE SODIUM IV 40 MG VIAL IV PUSH (09:08)
[2022-12-22] MEDS: FLUTICASONE/SALMETEROL 115-21 MCG INHALER 1 PUFF 2 PUFF INHALATION ×2 (09:37→20:33)
--- NOTE | 2022-12-22 11:15 | PM.PNNEP ---
Progress Note: A&P Assessment and Plan (1) End stage renal disease: Code(s): N18.6 - End stage renal disease Status: Chronic Assessment and Plan: HD tomorrow continue M/W/F outpatient dialysis schedule follow electrolytes, volume status, and clearance primary supervisor stave finishing = Ashish Vega MD (at [facility] in [place], [place]) (2) Chest pain: Qualifiers: Chest pain type: unspecified Qualified Code(s): R07.9 - Chest pain, unspecified Code(s): R07.9 - Chest pain, unspecified Status: Acute Assessment and Plan: as noted on admission transferred to ICU on 12/16 due increasing chest pain and requiring nitroglycerin infusion s/p cardiac catheterization with findings and intervention noted - restenosis of previously placed LAD stent which was addressed with balloon angioplasty with a good anatomical result Cardiology following continue supportive therapy (3) Hyperkalemia: Code(s): E87.5 - Hyperkalemia Status: Chronic Assessment and Plan: chronic issue/problem on [facility] on non-dialysis days as an outpatient follow trend of K+ (4) Acute respiratory failure: Qualifiers: Respiratory failure complication: hypoxia Qualified Code(s): J96.01 - Acute respiratory failure with hypoxia Code(s): J96.00 - Acute respiratory failure, unspecified whether with hypoxia or hypercapnia Status: Acute Assessment and Plan: resolved due to fluid overload/pulmonary edema precipitated by hypertensive urgency along with pneumonia was intubated and on mechanical ventilation extubated on 12/19/22 was requiring BiPAP support - wean as tolerated continue fluid removal as tolerated follow respiratory status closely (5) Hypertension: Code(s): I10 - Essential (primary) hypertension Status: Acute Assessment and Plan: seems to fluctuate to extremes noted issues/problems with intradialytic hypotension follow trend of hemodynamics (6) Anemia: Qualifiers: Anemia type: unspecified type Qualified Code(s): D64.9 - Anemia, unspecified Code(s): D64.9 - Anemia, unspecified Status: Chronic Assessment and Plan: partly due to ESRD and acute illness Epogen with HD PRBC transfusion per protocol follow trend of H/H (7) Diabetes mellitus type 1.5: Code(s): E13.9 - Other specified diabetes mellitus without complications Status: Chronic Assessment and Plan: follow accu-cheks glycemic control by hospitalists Will continue to follow. Subjective Date/time seen: 12/22/22 11:15 Interval history: Follow-up for end stage renal disease on hemodialysis. Transferred out of ICU yesterday; continues to make slow and steady improvement; no apparent distress other than fatigue/weakness in general; breathing/respiratory status is stable if nott better; no issues/events overnight or earlier this morning; discussed case with at bedside. Exam Narrative: General: WD/WN male in NAD Heart: normal S1 and S2; no rub Lungs: clear anteriorly; decreased at bases Abdomen: soft, nontender, nondistended, positive bowel sounds Extremities: no cyanosis or clubbing; trace edema Skin: warm and intact Objective Data Vital Signs Vital Signs: Vital Signs Temp Pulse Resp BP Pulse Ox O2 Del Method 12/22/22 11:00 98.4 F 93 20 160/68 H 93 12/22/22 09:38 95 Room Air 12/22/22 09:08 104 H 12/22/22 08:00 98.1 F 92 18 157/70 H 95 12/22/22 06:00 80 12/22/22 04:00 96.6 F L 80 18 157/56 H 100 12/22/22 04:00 75 12/22/22 02:00 80 12/22/22 00:00 86 12/21/22 22:00 75 12/21/22 23:09 92 18 98 BiPAP 12/21/22 23:05 97.6 F 80 20 161/66 H 98 12/21/22 20:00 90 12/21/22 20:00 98.4 F 87 13 152/66 H 95 12/21/22 20:00 87 13 95 Room Air 12/21/22 20:27 87
--- NOTE | 2022-12-22 11:15 | P.PNNP_ITS ---
Progress Note: A&P Assessment and Plan (1) End stage renal disease: Code(s): N18.6 - End stage renal disease Status: Chronic Assessment and Plan: * HD tomorrow * continue M/W/F outpatient dialysis schedule * follow electrolytes, volume status, and clearance * primary renewable energy division manager = Ashish Vega MD (at [facility] in [place], [place]) (2) Chest pain: Qualifiers: Chest pain type: unspecified Qualified Code(s): R07.9 - Chest pain, unspecified Code(s): R07.9 - Chest pain, unspecified Status: Acute Assessment and Plan: * as noted on admission * transferred to ICU on 12/16 due increasing chest pain and requiring nitroglycerin infusion * s/p cardiac catheterization with findings and intervention noted - restenosis of previously placed LAD stent which was addressed with balloon angioplasty with a good anatomical result * Cardiology following * continue supportive therapy (3) Hyperkalemia: Code(s): E87.5 - Hyperkalemia Status: Chronic Assessment and Plan: * chronic issue/problem * on [facility] on non-dialysis days as an outpatient * follow trend of K+ (4) Acute respiratory failure: Qualifiers: Respiratory failure complication: hypoxia Qualified Code(s): J96.01 - Acute respiratory failure with hypoxia Code(s): J96.00 - Acute respiratory failure, unspecified whether with hypoxia or hypercapnia Status: Acute Assessment and Plan: * resolved * due to fluid overload/pulmonary edema precipitated by hypertensive urgency along with pneumonia * was intubated and on mechanical ventilation * extubated on 12/19/22 * was requiring BiPAP support - wean as tolerated * continue fluid removal as tolerated * follow respiratory status closely (5) Hypertension: Code(s): I10 - Essential (primary) hypertension Status: Acute Assessment and Plan: * seems to fluctuate to extremes * noted issues/problems with intradialytic hypotension * follow trend of hemodynamics (6) Anemia: Qualifiers: Anemia type: unspecified type Qualified Code(s): D64.9 - Anemia, unspecified Code(s): D64.9 - Anemia, unspecified Status: Chronic Assessment and Plan: * partly due to ESRD and acute illness * Epogen with HD * PRBC transfusion per protocol * follow trend of H/H (7) Diabetes mellitus type 1.5: Code(s): E13.9 - Other specified diabetes mellitus without complications Status: Chronic Assessment and Plan: * follow accu-cheks * glycemic control by hospitalists Will continue to follow. Subjective Date/time seen: 12/22/22 11:15 Interval history: Follow-up for end stage renal disease on hemodialysis. Transferred out of ICU yesterday; continues to make slow and steady improvement; no apparent distress other than fatigue/weakness in general; breathing/respiratory status is stable if nott better; no issues/events overnight or earlier this morning; discussed case with at bedside. Exam Narrative: General: WD/WN male in NAD Heart: normal S1 and S2; no rub Lungs: clear anteriorly; decreased at bases Abdomen: soft, nontender, nondistended, positive bowel sounds Extremities: no cyanosis or clubbing; trace edema Skin: warm and intact Objective Data Vital Signs Vital Signs: Vital Signs Te
--- NOTE | 2022-12-22 12:18 | PM.PNCARD ---
Progress Note: A&P Assessment and Plan (1) Unstable angina: Code(s): I20.0 - Unstable angina Status: Acute Assessment and Plan: Unstable angina secondary to restenosis of previously placed LAD stent which was addressed with balloon angioplasty with a good anatomical result. Continue ASA 81 mg daily, rosuvastatin 10 mg at bedtime, Plavix 75mg daily, metoprolol tartrate 25 mg twice daily. Continue risk factor modification for CAD He did have a hematoma following LHC but this is stable, CTA showed no intra abdominal hemorrhage. H&H stable today. No exam stable. No lower extremity arterial compromise. Continue to monitor for bleeding and H&H. We will continue to follow Physical therapy occupational therapy. Continue telemetry for now. (2) Acute respiratory failure: Qualifiers: Respiratory failure complication: hypoxia Qualified Code(s): J96.01 - Acute respiratory failure with hypoxia Code(s): J96.00 - Acute respiratory failure, unspecified whether with hypoxia or hypercapnia Status: Acute Assessment and Plan: Flash pulmonary edema and acute hypoxic respiratory failure post cardiac catheterization now extubated, doing well with BiPAP overnight, resolved. Possible aspiration pneumonia? Patient remains on levofloxacin, metronidazole for treatment. Management per Primary Service. (3) CAD (coronary artery disease): Qualifiers: Coronary Disease-Associated Artery/Lesion type: [place] artery [place] vs. transplanted heart: [place] heart Associated angina: without angina Qualified Code(s): I25.10 - Atherosclerotic heart disease of [place] coronary artery without angina pectoris Code(s): I25.10 - Atherosclerotic heart disease of [place] coronary artery without angina pectoris Status: Acute Assessment and Plan: Stable, no anginal symptoms. Continue dual antiplatelet therapy with aspirin 81 mg daily and clopidogrel 75 mg daily. Patient also has a history of moderate aortic stenosis. Stable at this time. EF preserved 70%. (4) Anemia: Qualifiers: Anemia type: unspecified type Qualified Code(s): D64.9 - Anemia, unspecified Code(s): D64.9 - Anemia, unspecified Status: Chronic Assessment and Plan: Patient remains anemic but H&H is stable. No need for transfusion at this time. Monitor for bleeding. (5) Hypertension: Code(s): I10 - Essential (primary) hypertension Status: Acute Assessment and Plan: BP stable but elevated. Continue amlodipine 10 mg daily. Continue metoprolol tartrate 25 mg twice daily. If remains elevated may consider addition of scheduled hydralazine. May increase metoprolol to 50 mg twice daily. (6) ESRD on hemodialysis: Code(s): N18.6 - End stage renal disease; Z99.2 - Dependence on renal dialysis Status: Acute Assessment and Plan: Continue hemodialysis as scheduled for volume management. Nephrology following (7) SHEYLA on CPAP: Code(s): G47.33 - Obstructive sleep apnea (adult) (pediatric) Status: Acute Assessment and Plan: Continue BiPAP support treatment of SHEYLA. 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 12/19/22: Extubated this morning but on BiPAP because of respiratory distress after extubation. 12/21/2022: Patient feeling better. Denies chest pain or shortness of breath. Wore BiPAP last night. No new issues. and family at bedside. He remains hypertensive with blood pressures in the 140s to 160s range generally. Date of service 12/22/2022: Transfer to IMU yesterday. Patient states he feels fairly well, tired. Denies shortness of breath chest pain. States he did not sleep very well last night. Denies pain. No fevers, palpitati
--- NOTE | 2022-12-22 12:19 | PM.IMPN ---
Progress Note: A&P Assessment and Plan (1) Occult blood positive stool: Code(s): R19.5 - Other fecal abnormalities Status: Acute (2) Acute on chronic anemia: Code(s): D64.9 - Anemia, unspecified Status: Acute (3) Acute respiratory failure: Qualifiers: Respiratory failure complication: hypoxia Qualified Code(s): J96.01 - Acute respiratory failure with hypoxia Code(s): J96.00 - Acute respiratory failure, unspecified whether with hypoxia or hypercapnia Status: Acute Plan 62M w/ PMH morbid obesity, CAD s/p stents, HTN, SHEYLA, COPD, AOCD, IDDM, depression/schizophrenia, ESRD on dialysis MWF s/p COVID w/ severe infection in 2019. Pt presented complaining of chest pain and dx with unstable angina 2/2 restenosis of LAD stent s/p balloon angioplasty on 12/16. Post procedure complicated by acute hypoxic respiratory failure likely 2/2 HCAP. 1) angina/restenosis of LAD stent, s/p balloon angioplasty on 12/16 - chest pain resolved - cont aspirin and plavix, and beta sakshi - appreciate cardiology recs 2) acute on chronic anemia of chronic disease in ESRD patient - s/p 3 units pRBC, last on 12/18. had hematoma from cath puncture site x2, CT angiogram did not demonstrate active bleeding. HB now stable in 8's. CTM. avoid further anticoagulation for now - stool occult +, GI consulted. no intervention recommended now, outpatient colonoscopy. will change protonix to PO qday 3) acute hypoxic respiratory failure - post cath on 12/16, remain intubated 2/2 to respiratory distress and hypoxia and pulmonary edema. since extubated and on RA on 12/16. respiratory distress resolved. cont dialysis 4) HCAP - 12/17 levaquin and flagyl started, blood cultures NGTD. cont IV abx given high procalcitonin still - CT chest demonstrated small b/l pleural effusions with b/l consolidations 5) ESRD MWF - nephrology following - cont dialysis, continue lokelma 6) SHEYLA - CPAP at night 7) IDDM - accuchecks and ISS 8) hypertensive urgency - was on nicadipine gtt temporarily, now on amlodipine and metoprolol with prn hydralazine. goal SBP 140-180, he does drop during dialysis, requiring albumin 9) COPD? - restarting duonebs today, he denies sob but has the heavy breathing he has had since admission, avoid reintubation. monitor closely. 10) schizophrenia? - resume home mood stabilizers FEN: cardiac diabetic diet, saline lock IV GI prophylaxis: protonix DVT prophylaxis: SCD's only Lines: pIV Code Status: Full Code Dispo: continue with cardiopulmonary rehab, PT and OT consulted, evaluate for further needs and possible SNF. pt much improved and stable. More than 35 minutes spent on chart review, patient interaction and assessment and plan. Subjective Date/time seen: 12/22/22 12:19 Interval history: NAOE. patient has no complaints. denies sob Review of Systems Review of Systems: All systems reviewed & are unremarkable except as noted in HPI and below Exam Const: General: comfortable and no acute distress Eyes: Pupils: Equal, round and reactive pupils present Resp: Effort & Inspection: normal respiratory effort Auscultation: crackles and no wheezes Cardio: Rate: regular rate Rhythm: regular rhythm GI: GI Palp: Yes Soft to palpation Auscultation: normal bowel sounds Extrem: General: no edema Objective Data Vital Signs Vital Signs: Vital Signs - 24 hr 12/21/22 13:15 12/21/22 13:24 12/21/22 14:00 Temperature Pulse Rate 82 84 77 Respiratory Rate 16 18 Blood Pressure Pulse Oximetry Oxygen Delivery 12/21/22 15:25 12/21/22 16:00 12/21/22 16:00 Temperature 97.6 F Pulse Rate 80 83 83 Respiratory Rate 18 14 Blood Pressure 144/56 H Pulse Oximetry 96 99 Oxygen Delivery Room Air 12/21/22 17:49 12/21/22 18:03 12/21/22 20:22 Temperature Pulse Rate 89 87 88 Respiratory Rate 19 16 Blood Pressure 149/61 H Pulse Oximetry 100 Oxygen Delivery 11/25
[2022-12-22] MEDS: SODIUM ZIRCONIUM CYCLOSILICATE 10 GM POWD.PACK FEED TUBE ×2 (12:37→18:43)
[2022-12-22] MEDS: INSULIN ASPART (*BKC) 100 UNITS/ML SUB-Q ×2 (12:44→17:44)
[2022-12-22] MEDS: IPRATROPIUM BR 0.02% INH SOLN 0.5 MG/2.5 ML VIAL INHALATION ×2 (13:55→20:33)
[2022-12-22] MEDS: ALBUTEROL SULFATE NEB 2.5 MG/3 ML INH INHALATION ×2 (13:55→20:32)
[2022-12-22 14:44] LABS: Glucose Point of Care 271 mg/dl (65-105)
[2022-12-22] MEDS: ACETAMINOPHEN 325 MG TABLET 650 MG PO ×2 (16:13→22:09)
[2022-12-22 17:20] LABS: Glucose Point of Care 226 mg/dl (65-105)
[2022-12-22] MEDS: amLODIPine BESYLATE 5 MG TABLET 10 MG PO (17:45)
[2022-12-22] MEDS: HYDROcodone/acetaminophen (*CRX) 5-325 MG TABLET 1 TAB PO (18:43)
[2022-12-22] MEDS: ARIPiprazole 5 MG TABLET PO (20:27)
[2022-12-22] MEDS: traZODone HCL 50 MG TABLET PO (20:27)
[2022-12-22] MEDS: ROSUVASTATIN 10 MG TABLET PO (20:27)
[2022-12-22 20:46] LABS: Glucose Point of Care 187 mg/dl (65-105)
[2022-12-22] MEDS: OLANZapine 5 MG TABLET PO (21:39)
[2022-12-23] VITALS (40 sets, daily range): BP systolic 110–160; BP diastolic 55–77; PULSE 68–109; RESP 15–26; TEMP 36.1–37.3; O2SAT 93–100
[2022-12-23] MEDS: IPRATROPIUM BR 0.02% INH SOLN 0.5 MG/2.5 ML VIAL INHALATION ×3 (02:11→20:07)
[2022-12-23] MEDS: ALBUTEROL SULFATE NEB 2.5 MG/3 ML INH INHALATION ×3 (02:11→20:07)
[2022-12-23 04:57] LABS: Basophils Percent Auto 0.5 % (0.2-1.2); Eosinophils Absolute Auto 0.2 K/mm3 (0-0.3); Eosinophils Percent Auto 3.5 % (0-4.4); Hematocrit 25.5 % (42.0-52.0); Hemoglobin 8.2 g/dL (14.0-18.0); Immature Granulocyte Absolute 0.12 K/mm3 (0.00-0.031); Immature Granulocyte Percent A 2.1 % (0-0.5); Lymphocytes Absolute Auto 0.92 K/mm3 (0.9-3.2); Lymphocytes Percent Auto 15.9 % (18.3-44.2); Mean Corpuscular HGB Conc 32.2 g/dl (32-36); Mean Corpuscular Hemoglobin 31.2 pg (26-34); Mean Platelet Volume 9.9 fl (7.4-10.4); Monocytes Absolute Auto 0.6 K/mm3 (0.1-0.6); Monocytes Percent Auto 9.5 % (2.6-8.5); Neutrophils Percent Auto 68.5 % (45.5-73.1); Platelet Count Result 126 k/mm3 (150-375); Red Blood Count 2.63 M/mm3 (4.6-6.20); Red Cell Distribution Width 14.6 % (11.5-14.5); White Blood Count 5.8 K/mm3 (4.5-10.0)
[2022-12-23 05:14] LABS: Alanine Aminotransferase 18 U/L (6-50); Albumin Level 3.5 g/dL (3.5-5.1); Alkaline Phosphatase 72 U/L (38-126); Anion Gap 17 mmol/L (8-16); Aspartate Amino Transferase 28 U/L (17-59); Bilirubin,Total 0.9 mg/dL (0.2-1.3); Blood Urea Nitrogen 92 mg/dL (9-20); Calcium 8.7 mg/dL (8.4-10.2); Carbon Dioxide 25 mmol/L (22-30); Chloride 93 mmol/L (98-107); Estimated CRCL calculation 7 ml/min; Estimated Glomerular Filt Rate 5; Glucose 133 mg/dL (65-110); Magnesium 2.5 mg/dL (1.6-2.3); Phosphorus 7.1 mg/dL (2.5-4.5); Potassium 3.3 mmol/L (3.4-5.0); Sodium 135 mmol/L (137-145)
[2022-12-23 05:29] LABS: Procalcitonin 3.1 ng/mL
[2022-12-23] MEDS: metroNIDAZOLE 500 MG/ISO 100ML 500 MG/100 ML BAG 100 MG IVPB ×3 (05:33→23:19)
--- NOTE | 2022-12-23 09:17 | PM.PNNEP ---
Progress Note: A&P Assessment and Plan (1) End stage renal disease: Code(s): N18.6 - End stage renal disease Status: Chronic Assessment and Plan: HD today continue M/W/F outpatient dialysis schedule follow electrolytes, volume status, and clearance primary java technical manager = Ashish Vega MD ([place] [facility] [place] (2) Chest pain: Qualifiers: Chest pain type: unspecified Qualified Code(s): R07.9 - Chest pain, unspecified Code(s): R07.9 - Chest pain, unspecified Status: Acute Assessment and Plan: as noted on admission transferred to ICU on 12/16 due increasing chest pain and requiring nitroglycerin infusion s/p cardiac catheterization with findings and intervention noted - restenosis of previously placed LAD stent which was addressed with balloon angioplasty with a good anatomical result Cardiology following continue supportive therapy (3) Hyperkalemia: Code(s): E87.5 - Hyperkalemia Status: Chronic Assessment and Plan: chronic issue/problem on [facility] on non-dialysis days as an outpatient follow trend of K+ (4) Acute respiratory failure: Qualifiers: Respiratory failure complication: hypoxia Qualified Code(s): J96.01 - Acute respiratory failure with hypoxia Code(s): J96.00 - Acute respiratory failure, unspecified whether with hypoxia or hypercapnia Status: Acute Assessment and Plan: resolved due to fluid overload/pulmonary edema precipitated by hypertensive urgency along with pneumonia was intubated and on mechanical ventilation extubated on 12/19/22 was requiring BiPAP support - wean as tolerated continue fluid removal as tolerated follow respiratory status closely (5) Hypertension: Code(s): I10 - Essential (primary) hypertension Status: Acute Assessment and Plan: seems to fluctuate to extremes noted issues/problems with intradialytic hypotension follow trend of hemodynamics (6) Anemia: Qualifiers: Anemia type: unspecified type Qualified Code(s): D64.9 - Anemia, unspecified Code(s): D64.9 - Anemia, unspecified Status: Chronic Assessment and Plan: partly due to ESRD and acute illness Epogen with HD PRBC transfusion per protocol follow trend of H/H (7) Diabetes mellitus type 1.5: Code(s): E13.9 - Other specified diabetes mellitus without complications Status: Chronic Assessment and Plan: follow accu-cheks glycemic control by hospitalists Will continue to follow. Subjective Date/time seen: 12/23/22 09:17 Interval history: Follow-up for end stage renal disease on hemodialysis. Tolerating hemodialysis treatment at the time of my visit (seen on HD at 9:05AM); resting comfortably when seen; no apparent distress noted; no other complaints to report currently. Exam Narrative: General: WD/WN male in NAD Heart: normal S1 and S2; no rub Lungs: clear anteriorly; decreased at bases Abdomen: soft, nontender, nondistended, positive bowel sounds Extremities: no cyanosis or clubbing; trace edema Skin: no rash Objective Data Vital Signs Vital Signs: Vital Signs Temp Pulse Resp BP Pulse Ox O2 Del Method 12/23/22 09:15 79 120/63 12/23/22 09:00 82 113/76 12/23/22 08:43 80 151/76 H 12/23/22 08:43 97.4 F L 83 16 155/75 H 12/23/22 10:00 84 12/23/22 08:00 85 12/23/22 08:00 97.1 F L 81 15 147/77 H 98 12/23/22 05:51 78 12/23/22 04:00 68 12/23/22 03:47 97.5 F L 74 17 160/65 H 99 12/23/22 02:00 70 12/23/22 02:12 77 23 H 96 BiPAP 12/23/22 02:12 84 23 H 12/23/22 00:00 86 12/22/22 22:00 89 12/22/22 23:54 97.7 F 80 24 H 165/73 H 100 12/22/22 20:00 86 12/22/22 20:50 87 20 12/22/22 20:40 89 18 98 BiPAP 12/22/22 20:38 77 16 12/22/22 20:27 6
--- NOTE | 2022-12-23 09:17 | P.PNNP_ITS ---
Progress Note: A&P Assessment and Plan (1) End stage renal disease: Code(s): N18.6 - End stage renal disease Status: Chronic Assessment and Plan: * HD today * continue M/W/F outpatient dialysis schedule * follow electrolytes, volume status, and clearance * primary top lift trimmer = Ashish Vega MD (at [facility] in [place], [place]) (2) Chest pain: Qualifiers: Chest pain type: unspecified Qualified Code(s): R07.9 - Chest pain, unspecified Code(s): R07.9 - Chest pain, unspecified Status: Acute Assessment and Plan: * as noted on admission * transferred to ICU on 12/16 due increasing chest pain and requiring nitroglycerin infusion * s/p cardiac catheterization with findings and intervention noted - restenosis of previously placed LAD stent which was addressed with balloon angioplasty with a good anatomical result * Cardiology following * continue supportive therapy (3) Hyperkalemia: Code(s): E87.5 - Hyperkalemia Status: Chronic Assessment and Plan: * chronic issue/problem * on [facility] on non-dialysis days as an outpatient * follow trend of K+ (4) Acute respiratory failure: Qualifiers: Respiratory failure complication: hypoxia Qualified Code(s): J96.01 - Acute respiratory failure with hypoxia Code(s): J96.00 - Acute respiratory failure, unspecified whether with hypoxia or hypercapnia Status: Acute Assessment and Plan: * resolved * due to fluid overload/pulmonary edema precipitated by hypertensive urgency along with pneumonia * was intubated and on mechanical ventilation * extubated on 12/19/22 * was requiring BiPAP support - wean as tolerated * continue fluid removal as tolerated * follow respiratory status closely (5) Hypertension: Code(s): I10 - Essential (primary) hypertension Status: Acute Assessment and Plan: * seems to fluctuate to extremes * noted issues/problems with intradialytic hypotension * follow trend of hemodynamics (6) Anemia: Qualifiers: Anemia type: unspecified type Qualified Code(s): D64.9 - Anemia, unspecified Code(s): D64.9 - Anemia, unspecified Status: Chronic Assessment and Plan: * partly due to ESRD and acute illness * Epogen with HD * PRBC transfusion per protocol * follow trend of H/H (7) Diabetes mellitus type 1.5: Code(s): E13.9 - Other specified diabetes mellitus without complications Status: Chronic Assessment and Plan: * follow accu-cheks * glycemic control by hospitalists Will continue to follow. Subjective Date/time seen: 12/23/22 09:17 Interval history: Follow-up for end stage renal disease on hemodialysis. Tolerating hemodialysis treatment at the time of my visit (seen on HD at 9:05AM); resting comfortably when seen; no apparent distress noted; no other complaints to report currently. Exam Narrative: General: WD/WN male in NAD Heart: normal S1 and S2; no rub Lungs: clear anteriorly; decreased at bases Abdomen: soft, nontender, nondistended, positive bowel sounds Extremities: no cyanosis or clubbing; trace edema Skin: no rash Objective Data Vital Signs Vital Signs: Vital Signs Temp Pulse Resp BP Pulse Ox O2 Del Method 12/23/22 09:15 79 120/63 12/23/22 09:00 82
[2022-12-23 09:18] LABS: Glucose Point of Care 140 mg/dl (65-105)
--- NOTE | 2022-12-23 09:31 | PCOTNOTE ---
The patient treatment was not able to be completed. Patient was out of the room for HD. Will plan to continue treatment per plan of care.
--- NOTE | 2022-12-23 09:54 | PCPTNOTE ---
The patient treatment was not able to be completed this morning on 12/23/2022 due to patient out of room for dialysis. Will plan to continue treatment per plan of care.
[2022-12-23] MEDS: SODIUM CHLORIDE 0.9% IV 1,000 ML 999 ML IV CONT (12:01)
[2022-12-23] MEDS: EPOETIN ALFA 20,000 UNITS/ML VIAL 20000 UNITS IV PUSH (12:01)
--- NOTE | 2022-12-23 12:39 | PCNFU ---
Nutrition Follow-Up Complete: Increased protein energy needs related to mechanical ventilation as evidenced by need for full tube feeding Goal:Meet estimated protein energy needs pt meeting goal via po diet at this time. Pt current nutrition is Diabetic / Renal. Nutrition recommendation: continue with current plan of care Last recorded weight is 102 kg. Bowel Motility: +BM 12/22 Labs Reviewed: Hgb:8.2, HCT:25.5, NA:135, K:3.3, BUN:92, Cr:11.3, Glu:140 Meds Noted: novolog, lantus, protonix, zofran Skin: WNL Additional Notes: PT with ESRD on hemodialysis, has been extubated, now on a diabetic / Renal diet, intake 50-75% of meals. Wt stable. Continue to encourage good po intake. Add Nepro shakes daily. Monitor labs, plan of care, intake, weights Follow in 5 days.
[2022-12-23 12:54] LABS: Glucose Point of Care 128 mg/dl (65-105)
[2022-12-23] MEDS: METOPROLOL TARTRATE 25 MG TABLET PO ×2 (13:14→20:41)
[2022-12-23] MEDS: CLOPIDOGREL BISULFATE 75 MG TABLET PO (13:14)
[2022-12-23] MEDS: ASPIRIN 81 MG CHEWABLE TABLET PO (13:14)
[2022-12-23] MEDS: PANTOPRAZOLE SOD SESQUIHYDRATE 20 MG TAB PO (13:15)
[2022-12-23] MEDS: INSULIN GLARGINE (*BKC) 100 UNITS/ML 15 UNITS SUB-Q (13:19)
[2022-12-23] MEDS: levoFLOXacin 500 MG/D5W 100 ML 500 MG/100 ML BAG 100 MG IVPB (14:08)
--- NOTE | 2022-12-23 14:09 | PM.IMPN ---
Progress Note: A&P Assessment and Plan (1) Unstable angina: Code(s): I20.0 - Unstable angina Status: Acute (2) Occult blood positive stool: Code(s): R19.5 - Other fecal abnormalities Status: Acute (3) Acute on chronic anemia: Code(s): D64.9 - Anemia, unspecified Status: Acute (4) CAD (coronary artery disease): Qualifiers: Associated angina: without angina Coronary Disease-Associated Artery/Lesion type: [place] artery [place] vs. transplanted heart: [place] heart Qualified Code(s): I25.10 - Atherosclerotic heart disease of [place] coronary artery without angina pectoris Code(s): I25.10 - Atherosclerotic heart disease of [place] coronary artery without angina pectoris Status: Acute (5) End stage renal disease: Code(s): N18.6 - End stage renal disease Status: Chronic (6) Acute respiratory failure: Qualifiers: Respiratory failure complication: hypoxia Qualified Code(s): J96.01 - Acute respiratory failure with hypoxia Code(s): J96.00 - Acute respiratory failure, unspecified whether with hypoxia or hypercapnia Status: Acute (7) Hematoma: Code(s): T14.8XXA - Other injury of unspecified body region, initial encounter Status: Acute Plan 62M w/ PMH morbid obesity, CAD s/p stents, HTN, SHEYLA, COPD, AOCD, IDDM, depression/schizophrenia, ESRD on dialysis MWF s/p COVID w/ severe infection in 2019. Pt presented complaining of chest pain and dx with unstable angina. On 12/16/22 underwent PCI found to have restenosis of LAD stent s/p balloon angioplasty. Post procedure complicated by acute hypoxic respiratory failure likely 2/2 HCAP and COPD. 1) angina/restenosis of LAD stent, s/p balloon angioplasty on 12/16 - chest pain resolved - cont aspirin and plavix, and beta sakshi - appreciate cardiology recs 2) acute on chronic anemia of chronic disease in ESRD patient - s/p 3 units pRBC, last on 12/18. had hematoma from cath puncture site x2, CT angiogram did not demonstrate active bleeding. HB now stable in 8's. CTM. avoid further anticoagulation for now - stool occult +, GI consulted. no intervention recommended now, outpatient colonoscopy. protonix changed to PO daily 3) acute hypoxic respiratory failure - post cath on 12/16, remain intubated 2/2 to respiratory distress and hypoxia and pulmonary edema. since extubated and on RA on 12/16. respiratory distress resolved. cont dialysis - undiagnosed COPD vs post COVID lung. responsive to duonebs, continue schedule for now to avoid reintubation. had respiratory distress last on 12/22 4) HCAP - 12/17 levaquin and flagyl started, blood cultures NGTD. cont IV abx given high procalcitonin still. check procalcitonin tomorrow and consider de escalating. ESRD may be contributing somewhat to the elevation - CT chest demonstrated small b/l pleural effusions with b/l consolidations. 5) ESRD MWF - nephrology following - cont dialysis, continue lokelma 6) SHEYLA - CPAP at night 7) IDDM - accuchecks and ISS 8) hypertensive urgency - was on nicadipine gtt temporarily, now on amlodipine and metoprolol with prn hydralazine. goal SBP 140-180, he does drop during dialysis, requiring albumin 9) schizophrenia? - resume home mood stabilizers FEN: cardiac diabetic diet, saline lock IV GI prophylaxis: protonix DVT prophylaxis: SCD's only Lines: pIV Code Status: Full Code Dispo: continue with cardiopulmonary rehab, PT and OT consulted. he is largely stabilized medically so the process to d/c to rehab has been started. Subjective Date/time seen: 12/23/22 14:09 Interval history: NAOE. patient seen in dialysis. he has no complaints. he feels much better with his breathing Review of Systems Review of Systems: All systems reviewed & are unremarkable except as noted in HPI and below Exam Const: General: comfortable and no acute distress Resp: Effort & Inspection: normal respiratory effort Auscul
[2022-12-23 16:13] LABS: Anion Gap 14 mmol/L (8-16); Blood Urea Nitrogen 38 mg/dL (9-20); Calcium 9.1 mg/dL (8.4-10.2); Carbon Dioxide 24 mmol/L (22-30); Chloride 100 mmol/L (98-107); Estimated CRCL calculation 14 ml/min; Estimated Glomerular Filt Rate 9; Glucose 190 mg/dL (65-110); Potassium 3.9 mmol/L (3.4-5.0); Sodium 138 mmol/L (137-145)
[2022-12-23] MEDS: ACETAMINOPHEN 325 MG TABLET 650 MG PO (16:27)
[2022-12-23] MEDS: INSULIN ASPART (*BKC) 100 UNITS/ML SUB-Q (16:28)
[2022-12-23 17:05] LABS: Glucose Point of Care 204 mg/dl (65-105)
[2022-12-23] MEDS: amLODIPine BESYLATE 5 MG TABLET 10 MG PO (17:39)
--- NOTE | 2022-12-23 18:10 | PC.NURSE ---
Received from IMU via bed. Belongings transferred with patient.
--- NOTE | 2022-12-23 18:23 | PC.NURSE ---
This patient, Juanito Marroquin, was transferred to [[id number] ] on 12/23/22 at 1806. Personal belongings sent with patient. Report given to [ Lucy]. Appropriate documentation sent with patient.
[2022-12-23] MEDS: FLUTICASONE/SALMETEROL 115-21 MCG INHALER 1 PUFF 2 PUFF INHALATION (20:07)
[2022-12-23] MEDS: OLANZapine 5 MG TABLET PO (20:41)
[2022-12-23] MEDS: ROSUVASTATIN 10 MG TABLET PO (20:41)
[2022-12-23] MEDS: traZODone HCL 50 MG TABLET PO (20:41)
[2022-12-23] MEDS: ARIPiprazole 5 MG TABLET PO (20:41)
[2022-12-24] VITALS (25 sets, daily range): BP systolic 125–164; BP diastolic 59–86; PULSE 74–100; RESP 16–21; TEMP 36.6–36.9; O2SAT 94–100
[2022-12-24] MEDS: IPRATROPIUM BR 0.02% INH SOLN 0.5 MG/2.5 ML VIAL INHALATION ×4 (01:27→19:19)
[2022-12-24] MEDS: ALBUTEROL SULFATE NEB 2.5 MG/3 ML INH INHALATION ×4 (01:27→19:19)
[2022-12-24 03:39] LABS: Glucose Point of Care 166 mg/dl (65-105)
[2022-12-24 06:52] LABS: Hematocrit 26.4 % (42.0-52.0); Hemoglobin 8.1 g/dL (14.0-18.0); Mean Corpuscular HGB Conc 30.7 g/dl (32-36); Mean Corpuscular Volume 101.1 fl (80-100); Platelet Count Result 116 k/mm3 (150-375); Red Blood Count 2.61 M/mm3 (4.6-6.20); White Blood Count 5.2 K/mm3 (4.5-10.0)
[2022-12-24 07:02] LABS: Anion Gap 9 mmol/L (8-16); Blood Urea Nitrogen 47 mg/dL (9-20); Calcium 9.3 mg/dL (8.4-10.2); Carbon Dioxide 25 mmol/L (22-30); Chloride 102 mmol/L (98-107); Estimated CRCL calculation 10 ml/min; Estimated Glomerular Filt Rate 7; Glucose 135 mg/dL (65-110); Magnesium 2.3 mg/dL (1.6-2.3); Phosphorus 5.8 mg/dL (2.5-4.5); Potassium 3.7 mmol/L (3.4-5.0); Sodium 136 mmol/L (137-145)
[2022-12-24 07:34] LABS: Procalcitonin 2.8 ng/mL
[2022-12-24] MEDS: FLUTICASONE/SALMETEROL 115-21 MCG INHALER 1 PUFF 2 PUFF INHALATION ×2 (08:11→19:19)
[2022-12-24 08:29] LABS: Glucose Point of Care 142 mg/dl (65-105)
[2022-12-24] MEDS: PANTOPRAZOLE SOD SESQUIHYDRATE 20 MG TAB PO (08:45)
[2022-12-24] MEDS: METOPROLOL TARTRATE 25 MG TABLET PO ×2 (08:45→20:13)
[2022-12-24] MEDS: CLOPIDOGREL BISULFATE 75 MG TABLET PO (08:45)
[2022-12-24] MEDS: ASPIRIN 81 MG CHEWABLE TABLET PO (08:45)
[2022-12-24] MEDS: INSULIN GLARGINE (*BKC) 100 UNITS/ML 15 UNITS SUB-Q (08:46)
--- NOTE | 2022-12-24 09:23 | PM.PNNEP ---
Progress Note: A&P Assessment and Plan (1) End stage renal disease: Code(s): N18.6 - End stage renal disease Status: Chronic Assessment and Plan: HD tomorrow continue M/W/F outpatient dialysis schedule follow electrolytes, volume status, and clearance primary financial services representative = Ashish Vega MD (at [facility] in [place], [place]) (2) Chest pain: Qualifiers: Chest pain type: unspecified Qualified Code(s): R07.9 - Chest pain, unspecified Code(s): R07.9 - Chest pain, unspecified Status: Acute Assessment and Plan: as noted on admission transferred to ICU on 12/16 due increasing chest pain and requiring nitroglycerin infusion s/p cardiac catheterization with findings and intervention noted - restenosis of previously placed LAD stent which was addressed with balloon angioplasty with a good anatomical result Cardiology following continue current medical management (3) Hyperkalemia: Code(s): E87.5 - Hyperkalemia Status: Chronic Assessment and Plan: [facility] as an outpatient follow trend of K+ (4) Acute respiratory failure: Qualifiers: Respiratory failure complication: hypoxia Qualified Code(s): J96.01 - Acute respiratory failure with hypoxia Code(s): J96.00 - Acute respiratory failure, unspecified whether with hypoxia or hypercapnia Status: Acute Assessment and Plan: resolved due to fluid overload/pulmonary edema precipitated by hypertensive urgency along with pneumonia was intubated and on mechanical ventilation extubated on 12/19/22 was requiring BiPAP support - doing better continue fluid removal as tolerated follow respiratory status closely (5) Hypertension: Code(s): I10 - Essential (primary) hypertension Status: Acute Assessment and Plan: seems to fluctuate to extremes noted issues/problems with intradialytic hypotension follow trend of hemodynamics (6) Anemia: Qualifiers: Anemia type: unspecified type Qualified Code(s): D64.9 - Anemia, unspecified Code(s): D64.9 - Anemia, unspecified Status: Chronic Assessment and Plan: partly due to ESRD and acute illness Epogen with HD PRBC transfusion per protocol follow trend of H/H (7) Diabetes mellitus type 1.5: Code(s): E13.9 - Other specified diabetes mellitus without complications Status: Chronic Assessment and Plan: follow accu-cheks glycemic control by hospitalists Will continue to follow. Subjective Date/time seen: 12/24/22 09:23 Interval history: Follow-up for end stage renal disease on hemodialysis. Tolerated dialysis treatment yesterday without any issues or problems; feels reasonably well; no apparent distress voiced; no chest pain or shortness of breath to report; no events overnight or this morning. Exam Narrative: General: WD/WN male in NAD Heart: normal S1 and S2; no rub Lungs: clear anteriorly; decreased at bases Abdomen: soft, nontender, nondistended, positive bowel sounds Extremities: no cyanosis or clubbing; trace edema Skin: no nodules Objective Data Vital Signs Vital Signs: Vital Signs Temp Pulse Resp BP Pulse Ox O2 Del Method 12/24/22 08:04 94 12/24/22 07:50 18 95 Room Air 12/24/22 08:00 100 125/67 12/24/22 08:45 100 12/24/22 08:25 77 18 12/24/22 08:21 95 Room Air 12/24/22 08:12 83 19 12/24/22 04:00 92 12/24/22 00:00 81 12/23/22 20:00 96 12/24/22 05:08 76 21 H 97 BiPAP 12/24/22 04:23 98.0 F 81 20 141/86 H 100 12/24/22 01:35 77 18 98 BiPAP 12/23/22 22:00 76 25 H 97 BiPAP 12/24/22 01:30 79 20 12/24/22 00:00 98.5 F 84 20 139/64 100 12/23/22 20:41 92 12/23/22 20:15 92 20 12/23/22 20:10 93 Room Air 12/23/22 20:09 95 20
--- NOTE | 2022-12-24 09:23 | P.PNNP_ITS ---
Progress Note: A&P Assessment and Plan (1) End stage renal disease: Code(s): N18.6 - End stage renal disease Status: Chronic Assessment and Plan: * HD tomorrow * continue M/W/F outpatient dialysis schedule * follow electrolytes, volume status, and clearance * primary hand etcher helper = Ashish Vega MD (at [facility] in [place], [place]) (2) Chest pain: Qualifiers: Chest pain type: unspecified Qualified Code(s): R07.9 - Chest pain, unspecified Code(s): R07.9 - Chest pain, unspecified Status: Acute Assessment and Plan: * as noted on admission * transferred to ICU on 12/16 due increasing chest pain and requiring nitroglycerin infusion * s/p cardiac catheterization with findings and intervention noted - restenosis of previously placed LAD stent which was addressed with balloon angioplasty with a good anatomical result * Cardiology following * continue current medical management (3) Hyperkalemia: Code(s): E87.5 - Hyperkalemia Status: Chronic Assessment and Plan: * chronic issue/problem * on [facility] on non-dialysis days as an outpatient * follow trend of K+ (4) Acute respiratory failure: Qualifiers: Respiratory failure complication: hypoxia Qualified Code(s): J96.01 - Acute respiratory failure with hypoxia Code(s): J96.00 - Acute respiratory failure, unspecified whether with hypoxia or hypercapnia Status: Acute Assessment and Plan: * resolved * due to fluid overload/pulmonary edema precipitated by hypertensive urgency along with pneumonia * was intubated and on mechanical ventilation * extubated on 12/19/22 * was requiring BiPAP support - doing better * continue fluid removal as tolerated * follow respiratory status closely (5) Hypertension: Code(s): I10 - Essential (primary) hypertension Status: Acute Assessment and Plan: * seems to fluctuate to extremes * noted issues/problems with intradialytic hypotension * follow trend of hemodynamics (6) Anemia: Qualifiers: Anemia type: unspecified type Qualified Code(s): D64.9 - Anemia, unspecified Code(s): D64.9 - Anemia, unspecified Status: Chronic Assessment and Plan: * partly due to ESRD and acute illness * Epogen with HD * PRBC transfusion per protocol * follow trend of H/H (7) Diabetes mellitus type 1.5: Code(s): E13.9 - Other specified diabetes mellitus without complications Status: Chronic Assessment and Plan: * follow accu-cheks * glycemic control by hospitalists Will continue to follow. Subjective Date/time seen: 12/24/22 09:23 Interval history: Follow-up for end stage renal disease on hemodialysis. Tolerated dialysis treatment yesterday without any issues or problems; feels reasonably well; no apparent distress voiced; no chest pain or shortness of breath to report; no events overnight or this morning. Exam Narrative: General: WD/WN male in NAD Heart: normal S1 and S2; no rub Lungs: clear anteriorly; decreased at bases Abdomen: soft, nontender, nondistended, positive bowel sounds Extremities: no cyanosis or clubbing; trace edema Skin: no nodules Objective Data Vital Signs Vital Signs: Vital Signs Temp Pulse Resp BP Pulse Ox O2 Del Method 12/24/22 08:04 94
[2022-12-24 11:40] LABS: Glucose Point of Care 232 mg/dl (65-105)
[2022-12-24] MEDS: INSULIN ASPART (*BKC) 100 UNITS/ML SUB-Q ×2 (11:52→20:13)
--- NOTE | 2022-12-24 12:40 | PM.IMPN ---
Progress Note: A&P Assessment and Plan (1) Unstable angina: Code(s): I20.0 - Unstable angina Status: Acute Assessment and Plan: SEE BELOW- (2) Occult blood positive stool: Code(s): R19.5 - Other fecal abnormalities Status: Acute (3) Acute on chronic anemia: Code(s): D64.9 - Anemia, unspecified Status: Acute (4) CAD (coronary artery disease): Qualifiers: Coronary Disease-Associated Artery/Lesion type: [place] artery [place] vs. transplanted heart: [place] heart Associated angina: without angina Qualified Code(s): I25.10 - Atherosclerotic heart disease of [place] coronary artery without angina pectoris Code(s): I25.10 - Atherosclerotic heart disease of [place] coronary artery without angina pectoris Status: Acute (5) End stage renal disease: Code(s): N18.6 - End stage renal disease Status: Chronic (6) Acute respiratory failure: Qualifiers: Respiratory failure complication: hypoxia Qualified Code(s): J96.01 - Acute respiratory failure with hypoxia Code(s): J96.00 - Acute respiratory failure, unspecified whether with hypoxia or hypercapnia Status: Acute (7) Hematoma: Code(s): T14.8XXA - Other injury of unspecified body region, initial encounter Status: Acute Plan 1) angina/restenosis of LAD stent, s/p balloon angioplasty on 12/16 - chest pain resolved - cont aspirin and plavix, and beta sakshi - pt seen by cardiology 2) acute on chronic anemia of chronic disease in ESRD patient - s/p 3 units pRBC, last on 12/18. had hematoma from cath puncture site x2, CT angiogram did not demonstrate active bleeding. HB now stable in 8's. CTM. avoid further anticoagulation for now - stool occult +, GI consulted. no intervention recommended now, outpatient colonoscopy. protonix changed to PO daily 3) acute hypoxic respiratory failure - post cath on 12/16, remain intubated 2/2 to respiratory distress and hypoxia and pulmonary edema. since extubated and on RA on 12/16. respiratory distress resolved. cont dialysis - undiagnosed COPD vs post COVID lung. responsive to duonebs, continue schedule for now to avoid reintubation. had respiratory distress last on 12/22 - continue to encourage walking with walker with PT 4) HCAP - 12/17 levaquin and flagyl started, blood cultures NGTD. cont IV abx given high procalcitonin still. check procalcitonin tomorrow and consider de escalating. ESRD may be contributing somewhat to the elevation - CT chest demonstrated small b/l pleural effusions with b/l consolidations. 5) ESRD MWF - nephrology following - cont dialysis, continue [facility] 6) SHEYLA - CPAP at night 7) IDDM - accuchecks and ISS 8) hypertensive urgency - was on nicadipine gtt temporarily, now on amlodipine and metoprolol with prn hydralazine. goal SBP 140-180, he does drop during dialysis, requiring albumin 9) schizophrenia? - resume home mood stabilizers DC in 1-2 days time Subjective Date/time seen: 12/24/22 12:40 Interval history: 62-year-old male patient who is being admitted to the hospital for high risk chest pain with a heart score of 5 and a story strongly suspicious for CAD.? 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 Patient also has 2 prior stents feels like his pain today was reminiscent when he had angioplasty and stenting prior.? Patient sees Cardiology and Nephrology at [place] receives his dialysis in his hometown of [place].? Patient was visiting his son at [facility] preceding today's event.? Patient has been complaining intermittent chest discomfort over the last 1 month. Pt is feeling better seen by cardiology, GI and nephrology pt is improving hopeful dc on / fri Review of Systems Review of Systems: Breathing is better denies any chest pain All systems reviewed & a
--- NOTE | 2022-12-24 12:41 | PC.NURSE ---
On 12/24/22, the student, [Keila Fields], provided care and completed [facility] documentation on this patient. I have reviewed the student's documentation and agree with the findings.
[2022-12-24] MEDS: ALBUTEROL SULFATE (*SP) AEROSOL 1 PUFF 2 PUFF INHALATION (16:50)
[2022-12-24 17:24] LABS: Glucose Point of Care 176 mg/dl (65-105)
[2022-12-24] MEDS: amLODIPine BESYLATE 5 MG TABLET 10 MG PO (17:24)
[2022-12-24] MEDS: ARIPiprazole 5 MG TABLET PO (20:12)
[2022-12-24] MEDS: traZODone HCL 50 MG TABLET PO (20:12)
[2022-12-24] MEDS: ROSUVASTATIN 10 MG TABLET PO (20:13)
[2022-12-24] MEDS: OLANZapine 5 MG TABLET PO (20:13)
[2022-12-24 20:29] LABS: Glucose Point of Care 238 mg/dl (65-105)
[2022-12-25] VITALS (36 sets, daily range): BP systolic 114–158; BP diastolic 52–78; PULSE 71–100; RESP 16–20; TEMP 36.2–37.7; O2SAT 94–100
[2022-12-25] MEDS: ALBUTEROL SULFATE NEB 2.5 MG/3 ML INH INHALATION ×3 (02:39→20:16)
[2022-12-25] MEDS: IPRATROPIUM BR 0.02% INH SOLN 0.5 MG/2.5 ML VIAL INHALATION ×3 (02:39→20:16)
[2022-12-25 06:09] LABS: Basophils Absolute Auto 0.1 K/mm3 (0.0-0.1); Basophils Percent Auto 0.9 % (0.2-1.2); Eosinophils Absolute Auto 0.3 K/mm3 (0-0.3); Eosinophils Percent Auto 4.6 % (0-4.4); Hematocrit 25.4 % (42.0-52.0); Immature Granulocyte Absolute 0.18 K/mm3 (0.00-0.031); Immature Granulocyte Percent A 3.3 % (0-0.5); Lymphocytes Absolute Auto 0.94 K/mm3 (0.9-3.2); Lymphocytes Percent Auto 17.2 % (18.3-44.2); Mean Corpuscular HGB Conc 31.5 g/dl (32-36); Mean Corpuscular Hemoglobin 30.9 pg (26-34); Mean Corpuscular Volume 98.1 fl (80-100); Mean Platelet Volume 9.7 fl (7.4-10.4); Monocytes Absolute Auto 0.5 K/mm3 (0.1-0.6); Monocytes Percent Auto 8.8 % (2.6-8.5); Neutrophils Absolute Auto 3.6 K/mm3 (1.3-6.7); Neutrophils Percent Auto 65.2 % (45.5-73.1); Platelet Count Result 114 k/mm3 (150-375); Red Blood Count 2.59 M/mm3 (4.6-6.20); Red Cell Distribution Width 14.7 % (11.5-14.5); White Blood Count 5.5 K/mm3 (4.5-10.0)
[2022-12-25 06:31] LABS: Albumin Level 3.4 g/dL (3.5-5.1); Anion Gap 14 mmol/L (8-16); Blood Urea Nitrogen 58 mg/dL (9-20); Calcium 9.1 mg/dL (8.4-10.2); Carbon Dioxide 23 mmol/L (22-30); Chloride 100 mmol/L (98-107); Estimated CRCL calculation 8 ml/min; Estimated Glomerular Filt Rate 5; Glucose 137 mg/dL (65-110); Phosphorus 6.5 mg/dL (2.5-4.5); Potassium 3.6 mmol/L (3.4-5.0); Sodium 137 mmol/L (137-145)
[2022-12-25] MEDS: PANTOPRAZOLE SOD SESQUIHYDRATE 20 MG TAB PO (08:21)
[2022-12-25] MEDS: ASPIRIN 81 MG CHEWABLE TABLET PO (08:21)
[2022-12-25] MEDS: CLOPIDOGREL BISULFATE 75 MG TABLET PO (08:22)
[2022-12-25] MEDS: INSULIN GLARGINE (*BKC) 100 UNITS/ML 15 UNITS SUB-Q (08:30)
[2022-12-25] MEDS: SODIUM CHLORIDE 0.9% IV 1,000 ML 999 ML IV CONT (11:26)
[2022-12-25] MEDS: EPOETIN ALFA-EPBX 10,000 UNITS/ML VIAL 10000 UNITS IV PUSH (11:27)
--- NOTE | 2022-12-25 12:11 | PM.PNNEP ---
Progress Note: A&P Assessment and Plan (1) End stage renal disease: Code(s): N18.6 - End stage renal disease Status: Chronic Assessment and Plan: HD today continue M/W/F outpatient dialysis schedule follow electrolytes, volume status, and clearance primary broom handle dipper = Ashish Veag MD (at [facility] in [place], [place]) (2) Chest pain: Qualifiers: Chest pain type: unspecified Qualified Code(s): R07.9 - Chest pain, unspecified Code(s): R07.9 - Chest pain, unspecified Status: Acute Assessment and Plan: as noted on admission transferred to ICU on 12/16 due increasing chest pain and requiring nitroglycerin infusion s/p cardiac catheterization with findings and intervention noted - restenosis of previously placed LAD stent which was addressed with balloon angioplasty with a good anatomical result Cardiology following continue current medical management (3) Hyperkalemia: Code(s): E87.5 - Hyperkalemia Status: Chronic Assessment and Plan: chronic issue/problem on [facility] on non-dialysis days as an outpatient follow trend of K+ (4) Acute respiratory failure: Qualifiers: Respiratory failure complication: hypoxia Qualified Code(s): J96.01 - Acute respiratory failure with hypoxia Code(s): J96.00 - Acute respiratory failure, unspecified whether with hypoxia or hypercapnia Status: Acute Assessment and Plan: resolved due to fluid overload/pulmonary edema precipitated by hypertensive urgency along with pneumonia was intubated and on mechanical ventilation extubated on 12/19/22 was requiring BiPAP support - doing better continue fluid removal as tolerated follow respiratory status closely (5) Hypertension: Code(s): I10 - Essential (primary) hypertension Status: Acute Assessment and Plan: seems to fluctuate to extremes noted issues/problems with intradialytic hypotension follow trend of hemodynamics (6) Anemia: Qualifiers: Anemia type: unspecified type Qualified Code(s): D64.9 - Anemia, unspecified Code(s): D64.9 - Anemia, unspecified Status: Chronic Assessment and Plan: partly due to ESRD and acute illness Epogen with HD PRBC transfusion per protocol follow trend of H/H (7) Diabetes mellitus type 1.5: Code(s): E13.9 - Other specified diabetes mellitus without complications Status: Chronic Assessment and Plan: follow accu-cheks glycemic control by hospitalists Will continue to follow. Subjective Date/time seen: 12/25/22 12:11 Interval history: Follow-up for end stage renal disease on hemodialysis. Tolerating dialysis treatment at the time of my visit (seen on HD at 12:00PM); no acute complaints voiced currently; overall, feels reasonably well; no issues/events overnight or earlier this AM. Exam Narrative: General: WD/WN male in NAD Heart: normal S1 and S2; no rub Lungs: clear anteriorly; decreased at bases Abdomen: soft, nontender, nondistended, positive bowel sounds Extremities: no cyanosis or clubbing; trace edema Skin: warm and dry Objective Data Vital Signs Vital Signs: Vital Signs Temp Pulse Resp BP Pulse Ox O2 Del Method 12/25/22 12:00 88 146/71 H 12/25/22 11:15 87 141/78 H 12/25/22 11:00 90 150/70 H 12/25/22 10:45 86 140/77 12/25/22 11:45 87 130/70 12/25/22 11:31 86 128/70 12/25/22 10:30 89 147/75 H 12/25/22 10:15 90 143/71 H 12/25/22 08:00 84 12/25/22 08:20 Room Air 12/25/22 10:00 89 141/74 H 12/25/22 09:45 86 132/67 12/25/22 09:30 85 130/69 12/25/22 09:15 85 135/68 12/25/22 09:00 82 136/70 12/25/22 08:44 97.9 F 86 18 138/67 12/25/22 08:20 83 127/55 L 100 12/25/22 04:00 71 12/25/22 00:00 83 12/24/22 20:00 99 12/25/22 03:
--- NOTE | 2022-12-25 12:11 | P.PNNP_ITS ---
Progress Note: A&P Assessment and Plan (1) End stage renal disease: Code(s): N18.6 - End stage renal disease Status: Chronic Assessment and Plan: * HD today * continue M/W/F outpatient dialysis schedule * follow electrolytes, volume status, and clearance * primary cable installation technician = Ashish Vega [place] [facility] [place] (2) Chest pain: Qualifiers: Chest pain type: unspecified Qualified Code(s): R07.9 - Chest pain, unspecified Code(s): R07.9 - Chest pain, unspecified Status: Acute Assessment and Plan: * as noted on admission * transferred to ICU on 12/16 due increasing chest pain and requiring nitroglycerin infusion * s/p cardiac catheterization with findings and intervention noted - restenosis of previously placed LAD stent which was addressed with balloon angioplasty with a good anatomical result * Cardiology following * continue current medical management (3) Hyperkalemia: Code(s): E87.5 - Hyperkalemia Status: Chronic Assessment and Plan: * chronic issue/problem * on [facility] on non-dialysis days as an outpatient * follow trend of K+ (4) Acute respiratory failure: Qualifiers: Respiratory failure complication: hypoxia Qualified Code(s): J96.01 - Acute respiratory failure with hypoxia Code(s): J96.00 - Acute respiratory failure, unspecified whether with hypoxia or hypercapnia Status: Acute Assessment and Plan: * resolved * due to fluid overload/pulmonary edema precipitated by hypertensive urgency along with pneumonia * was intubated and on mechanical ventilation * extubated on 12/19/22 * was requiring BiPAP support - doing better * continue fluid removal as tolerated * follow respiratory status closely (5) Hypertension: Code(s): I10 - Essential (primary) hypertension Status: Acute Assessment and Plan: * seems to fluctuate to extremes * noted issues/problems with intradialytic hypotension * follow trend of hemodynamics (6) Anemia: Qualifiers: Anemia type: unspecified type Qualified Code(s): D64.9 - Anemia, unspecified Code(s): D64.9 - Anemia, unspecified Status: Chronic Assessment and Plan: * partly due to ESRD and acute illness * Epogen with HD * PRBC transfusion per protocol * follow trend of H/H (7) Diabetes mellitus type 1.5: Code(s): E13.9 - Other specified diabetes mellitus without complications Status: Chronic Assessment and Plan: * follow accu-cheks * glycemic control by hospitalists Will continue to follow. Subjective Date/time seen: 12/25/22 12:11 Interval history: Follow-up for end stage renal disease on hemodialysis. Tolerating dialysis treatment at the time of my visit (seen on HD at 12:00PM); no acute complaints voiced currently; overall, feels reasonably well; no issues/events overnight or earlier this AM. Exam Narrative: General: WD/WN male in NAD Heart: normal S1 and S2; no rub Lungs: clear anteriorly; decreased at bases Abdomen: soft, nontender, nondistended, positive bowel sounds Extremities: no cyanosis or clubbing; trace edema Skin: warm and dry Objective Data Vital Signs Vital Signs: Vital Signs Temp Pulse Resp BP Pulse Ox O2 Del Method 12/25/22 12:00 88 146/71 H
[2022-12-25 12:18] LABS: Glucose Point of Care 137 mg/dl (65-105)
[2022-12-25 13:08] LABS: Glucose Point of Care 137 mg/dl (65-105)
--- NOTE | 2022-12-25 13:17 | PM.IMPN ---
Progress Note: A&P Assessment and Plan (1) Unstable angina: Code(s): I20.0 - Unstable angina Status: Acute Assessment and Plan: SEE BELOW (2) Occult blood positive stool: Code(s): R19.5 - Other fecal abnormalities Status: Acute (3) Acute on chronic anemia: Code(s): D64.9 - Anemia, unspecified Status: Acute (4) CAD (coronary artery disease): Qualifiers: Associated angina: without angina Coronary Disease-Associated Artery/Lesion type: [place] artery [place] vs. transplanted heart: [place] heart Qualified Code(s): I25.10 - Atherosclerotic heart disease of [place] coronary artery without angina pectoris Code(s): I25.10 - Atherosclerotic heart disease of [place] coronary artery without angina pectoris Status: Acute (5) End stage renal disease: Code(s): N18.6 - End stage renal disease Status: Chronic (6) Acute respiratory failure: Qualifiers: Respiratory failure complication: hypoxia Qualified Code(s): J96.01 - Acute respiratory failure with hypoxia Code(s): J96.00 - Acute respiratory failure, unspecified whether with hypoxia or hypercapnia Status: Acute (7) Hematoma: Code(s): T14.8XXA - Other injury of unspecified body region, initial encounter Status: Acute Plan 1) angina/restenosis of LAD stent, s/p balloon angioplasty on 12/16 - chest pain resolved - cont aspirin and plavix, and beta sakshi - pt seen by cardiology 2) acute on chronic anemia of chronic disease in ESRD patient - s/p 3 units pRBC, last on 12/18. had hematoma from cath puncture site x2, CT angiogram did not demonstrate active bleeding. HB now stable in 8's. CTM. avoid further anticoagulation for now - stool occult +, GI consulted. no intervention recommended now, outpatient colonoscopy. protonix changed to PO daily 3) acute hypoxic respiratory failure - post cath on 12/16, remain intubated 2/2 to respiratory distress and hypoxia and pulmonary edema. since extubated and on RA on 12/16. respiratory distress resolved. cont dialysis - undiagnosed COPD vs post COVID lung. responsive to duonebs, continue schedule for now to avoid reintubation. had respiratory distress last on 12/22 - continue to encourage walking with walker with PT 4) HCAP - 12/17 levaquin and flagyl started, blood cultures NGTD. cont IV abx given high procalcitonin still. check procalcitonin tomorrow and consider de escalating. ESRD may be contributing somewhat to the elevation - CT chest demonstrated small b/l pleural effusions with b/l consolidations. 5) ESRD MWF - nephrology following - cont dialysis, continue [facility] 6) SHEYLA - CPAP at night 7) IDDM - accuchecks and ISS 8) hypertensive urgency - was on nicadipine gtt temporarily, now on amlodipine and metoprolol with prn hydralazine. goal SBP 140-180, he does drop during dialysis, requiring albumin 9) schizophrenia? - resume home mood stabilizers DC in 1-2 days time Subjective Date/time seen: 12/25/22 13:17 Interval history: 62-year-old male patient who is being admitted to the hospital for high risk chest pain with a heart score of 5 and a story strongly suspicious for CAD.? 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 Patient also has 2 prior stents feels like his pain today was reminiscent when he had angioplasty and stenting prior.? Patient sees Cardiology and Nephrology at [place] receives his dialysis in his hometown of [place].? Patient was visiting his son at [facility] preceding today's event.? Patient has been complaining intermittent chest discomfort over the last 1 month. Pt is feeling better seen by cardiology, GI and nephrology pt is improving hopeful dc on / fri Review of Systems Review of Systems: Breathing is better denies any chest pain Exam Narrative: Gen
[2022-12-25] MEDS: METOPROLOL TARTRATE 25 MG TABLET PO ×2 (14:58→20:40)
[2022-12-25 16:59] LABS: Glucose Point of Care 241 mg/dl (65-105)
[2022-12-25] MEDS: amLODIPine BESYLATE 5 MG TABLET 10 MG PO (17:40)
[2022-12-25] MEDS: INSULIN ASPART (*BKC) 100 UNITS/ML SUB-Q ×2 (17:41→20:41)
[2022-12-25] MEDS: FLUTICASONE/SALMETEROL 115-21 MCG INHALER 1 PUFF 2 PUFF INHALATION (20:16)
[2022-12-25] MEDS: ONDANSETRON INJ 4 MG/2 ML VIAL IV PUSH (20:37)
[2022-12-25] MEDS: ARIPiprazole 5 MG TABLET PO (20:39)
[2022-12-25] MEDS: OLANZapine 5 MG TABLET PO (20:40)
[2022-12-25] MEDS: ROSUVASTATIN 10 MG TABLET PO (20:40)
[2022-12-25] MEDS: traZODone HCL 50 MG TABLET PO (20:40)
[2022-12-25 21:05] LABS: Glucose Point of Care 234 mg/dl (65-105)
[2022-12-26] VITALS (22 sets, daily range): BP systolic 111–136; BP diastolic 50–78; PULSE 74–91; RESP 14–20; TEMP 36.1–37.1; O2SAT 94–100
[2022-12-26] MEDS: ALBUTEROL SULFATE NEB 2.5 MG/3 ML INH INHALATION ×4 (02:01→20:26)
[2022-12-26] MEDS: IPRATROPIUM BR 0.02% INH SOLN 0.5 MG/2.5 ML VIAL INHALATION ×4 (02:01→20:26)
[2022-12-26] MEDS: FLUTICASONE/SALMETEROL 115-21 MCG INHALER 1 PUFF 2 PUFF INHALATION ×2 (08:01→20:26)
[2022-12-26 08:41] LABS: Glucose Point of Care 176 mg/dl (65-105)
[2022-12-26] MEDS: ASPIRIN 81 MG CHEWABLE TABLET PO (10:02)
[2022-12-26] MEDS: CLOPIDOGREL BISULFATE 75 MG TABLET PO (10:02)
[2022-12-26] MEDS: PANTOPRAZOLE SOD SESQUIHYDRATE 20 MG TAB PO (10:02)
[2022-12-26] MEDS: METOPROLOL TARTRATE 25 MG TABLET PO ×2 (10:02→20:44)
[2022-12-26] MEDS: INSULIN GLARGINE (*BKC) 100 UNITS/ML 15 UNITS SUB-Q (10:03)
[2022-12-26 12:02] LABS: Glucose Point of Care 294 mg/dl (65-105)
--- NOTE | 2022-12-26 12:22 | PM.IMPN ---
Progress Note: A&P Assessment and Plan (1) Unstable angina: Code(s): I20.0 - Unstable angina Status: Acute Assessment and Plan: SEE BELOW (2) Occult blood positive stool: Code(s): R19.5 - Other fecal abnormalities Status: Acute (3) Acute on chronic anemia: Code(s): D64.9 - Anemia, unspecified Status: Acute (4) CAD (coronary artery disease): Qualifiers: Coronary Disease-Associated Artery/Lesion type: [place] artery [place] vs. transplanted heart: [place] heart Associated angina: without angina Qualified Code(s): I25.10 - Atherosclerotic heart disease of [place] coronary artery without angina pectoris Code(s): I25.10 - Atherosclerotic heart disease of [place] coronary artery without angina pectoris Status: Acute (5) End stage renal disease: Code(s): N18.6 - End stage renal disease Status: Chronic (6) Acute respiratory failure: Qualifiers: Respiratory failure complication: hypoxia Qualified Code(s): J96.01 - Acute respiratory failure with hypoxia Code(s): J96.00 - Acute respiratory failure, unspecified whether with hypoxia or hypercapnia Status: Acute (7) Hematoma: Code(s): T14.8XXA - Other injury of unspecified body region, initial encounter Status: Acute Plan 1) angina/restenosis of LAD stent, s/p balloon angioplasty on 12/16 - chest pain resolved - cont aspirin and plavix, and beta sakshi - pt seen by cardiology 2) acute on chronic anemia of chronic disease in ESRD patient - s/p 3 units pRBC, last on 12/18. had hematoma from cath puncture site x2, CT angiogram did not demonstrate active bleeding. HB now stable in 8's. CTM. avoid further anticoagulation for now - stool occult +, GI consulted. no intervention recommended now, outpatient colonoscopy. protonix changed to PO daily 3) acute hypoxic respiratory failure - post cath on 12/16, remain intubated 2/2 to respiratory distress and hypoxia and pulmonary edema. since extubated and on RA on 12/16. respiratory distress resolved. cont dialysis - undiagnosed COPD vs post COVID lung. responsive to duonebs, continue schedule for now to avoid reintubation. had respiratory distress last on 12/22 - continue to encourage walking with walker with PT 4) HCAP - 12/17 levaquin and flagyl started, blood cultures NGTD. cont IV abx given high procalcitonin still. check procalcitonin tomorrow and consider de escalating. ESRD may be contributing somewhat to the elevation - CT chest demonstrated small b/l pleural effusions with b/l consolidations. 5) ESRD MWF - nephrology following - cont dialysis, continue [facility] 6) SHEYLA - CPAP at night 7) IDDM - accuchecks and ISS 8) hypertensive urgency - was on nicadipine gtt temporarily, now on amlodipine and metoprolol with prn hydralazine. goal SBP 140-180, he does drop during dialysis, requiring albumin 9) schizophrenia? - resume home mood stabilizers DC tyra after dialysis Subjective Date/time seen: 12/26/22 12:22 Interval history: 62-year-old male patient who is being admitted to the hospital for high risk chest pain with a heart score of 5 and a story strongly suspicious for CAD.? 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 Patient also has 2 prior stents feels like his pain today was reminiscent when he had angioplasty and stenting prior.? Patient sees Cardiology and Nephrology at [place] receives his dialysis in his hometown of [place].? Patient was visiting his son at [facility] preceding today's event.? Patient has been complaining intermittent chest discomfort over the last 1 month. Pt is feeling better seen by cardiology, GI and nephrology pt is improving hopeful dc on / fri DC BIPAP switch to CPAP DC tyra after dialysis Review of Systems Review of Systems: Breathing is robinson
[2022-12-26] MEDS: INSULIN ASPART (*BKC) 100 UNITS/ML SUB-Q ×3 (12:47→20:44)
--- NOTE | 2022-12-26 13:20 | P.PNNP_ITS ---
Progress Note: A&P Assessment and Plan (1) End stage renal disease: Code(s): N18.6 - End stage renal disease Status: Chronic Assessment and Plan: * HD tomorrow * continue M/W/F outpatient dialysis schedule * follow electrolytes, volume status, and clearance * primary rounding machine operator = Ashish Vega MD (at [facility] in [place], [place]) (2) Chest pain: Qualifiers: Chest pain type: unspecified Qualified Code(s): R07.9 - Chest pain, unspecified Code(s): R07.9 - Chest pain, unspecified Status: Acute Assessment and Plan: * as noted on admission * transferred to ICU on 12/16 due increasing chest pain and requiring nitroglycerin infusion * s/p cardiac catheterization with findings and intervention noted - restenosis of previously placed LAD stent which was addressed with balloon angioplasty with a good anatomical result * Cardiology following * continue current medical management (3) Hyperkalemia: Code(s): E87.5 - Hyperkalemia Status: Chronic Assessment and Plan: * chronic issue/problem * on [facility] on non-dialysis days as an outpatient * follow trend of K+ (4) Acute respiratory failure: Qualifiers: Respiratory failure complication: hypoxia Qualified Code(s): J96.01 - Acute respiratory failure with hypoxia Code(s): J96.00 - Acute respiratory failure, unspecified whether with hypoxia or hypercapnia Status: Acute Assessment and Plan: * resolved * due to fluid overload/pulmonary edema precipitated by hypertensive urgency along with pneumonia * was intubated and on mechanical ventilation * extubated on 12/19/22 * was requiring BiPAP support - doing better * continue fluid removal as tolerated * follow respiratory status closely (5) Hypertension: Code(s): I10 - Essential (primary) hypertension Status: Acute Assessment and Plan: * seems to fluctuate to extremes * noted issues/problems with intradialytic hypotension * follow trend of hemodynamics (6) Anemia: Qualifiers: Anemia type: unspecified type Qualified Code(s): D64.9 - Anemia, unspecified Code(s): D64.9 - Anemia, unspecified Status: Chronic Assessment and Plan: * partly due to ESRD and acute illness * Epogen with HD * PRBC transfusion per protocol * follow trend of H/H (7) Diabetes mellitus type 1.5: Code(s): E13.9 - Other specified diabetes mellitus without complications Status: Chronic Assessment and Plan: * follow accu-cheks * glycemic control by hospitalists Will continue to follow. Subjective Date/time seen: 12/26/22 13:20 Interval history: Follow-up for end stage renal disease on hemodialysis. Tolerated dialysis treatment yesterday without any issues or problems; overall, appears to be doing quite well; no apparen distress noted; no issues/events overnight or earlier this morning. Exam Narrative: General: WD/WN male in NAD Heart: normal S1 and S2; no rub Lungs: clear anteriorly; decreased at bases Abdomen: soft, nontender, nondistended, positive bowel sounds Extremities: no cyanosis or clubbing; trace edema Skin: warm and intact Objective Data Vital Signs Vital Signs: Vital Signs Temp Pulse Resp BP Pulse Ox O2 Del Method FiO2 12/26/22 13:00 79 20
--- NOTE | 2022-12-26 13:20 | PM.PNNEP ---
Progress Note: A&P Assessment and Plan (1) End stage renal disease: Code(s): N18.6 - End stage renal disease Status: Chronic Assessment and Plan: HD tomorrow continue M/W/F outpatient dialysis schedule follow electrolytes, volume status, and clearance primary sustainability coordinator = Ashish Vega MD (at [facility] in [place], [place]) (2) Chest pain: Qualifiers: Chest pain type: unspecified Qualified Code(s): R07.9 - Chest pain, unspecified Code(s): R07.9 - Chest pain, unspecified Status: Acute Assessment and Plan: as noted on admission transferred to ICU on 12/16 due increasing chest pain and requiring nitroglycerin infusion s/p cardiac catheterization with findings and intervention noted - restenosis of previously placed LAD stent which was addressed with balloon angioplasty with a good anatomical result Cardiology following continue current medical management (3) Hyperkalemia: Code(s): E87.5 - Hyperkalemia Status: Chronic Assessment and Plan: chronic issue/problem on [facility] on non-dialysis days as an outpatient follow trend of K+ (4) Acute respiratory failure: Qualifiers: Respiratory failure complication: hypoxia Qualified Code(s): J96.01 - Acute respiratory failure with hypoxia Code(s): J96.00 - Acute respiratory failure, unspecified whether with hypoxia or hypercapnia Status: Acute Assessment and Plan: resolved due to fluid overload/pulmonary edema precipitated by hypertensive urgency along with pneumonia was intubated and on mechanical ventilation extubated on 12/19/22 was requiring BiPAP support - doing better continue fluid removal as tolerated follow respiratory status closely (5) Hypertension: Code(s): I10 - Essential (primary) hypertension Status: Acute Assessment and Plan: seems to fluctuate to extremes noted issues/problems with intradialytic hypotension follow trend of hemodynamics (6) Anemia: Qualifiers: Anemia type: unspecified type Qualified Code(s): D64.9 - Anemia, unspecified Code(s): D64.9 - Anemia, unspecified Status: Chronic Assessment and Plan: partly due to ESRD and acute illness Epogen with HD PRBC transfusion per protocol follow trend of H/H (7) Diabetes mellitus type 1.5: Code(s): E13.9 - Other specified diabetes mellitus without complications Status: Chronic Assessment and Plan: follow accu-cheks glycemic control by hospitalists Will continue to follow. Subjective Date/time seen: 12/26/22 13:20 Interval history: Follow-up for end stage renal disease on hemodialysis. Tolerated dialysis treatment yesterday without any issues or problems; overall, appears to be doing quite well; no apparen distress noted; no issues/events overnight or earlier this morning. Exam Narrative: General: WD/WN male in NAD Heart: normal S1 and S2; no rub Lungs: clear anteriorly; decreased at bases Abdomen: soft, nontender, nondistended, positive bowel sounds Extremities: no cyanosis or clubbing; trace edema Skin: warm and intact Objective Data Vital Signs Vital Signs: Vital Signs Temp Pulse Resp BP Pulse Ox O2 Del Method FiO2 12/26/22 13:00 79 20 12/26/22 10:02 91 12/26/22 10:01 91 14 128/60 94 12/26/22 07:36 78 20 12/26/22 07:36 94 Room Air 21 12/26/22 08:03 86 20 12/26/22 04:25 97.2 F L 76 20 117/54 L 95 12/26/22 04:00 74 12/26/22 00:00 82 12/25/22 20:00 92 12/26/22 02:10 82 20 12/26/22 02:05 79 20 99 BiPAP 12/26/22 02:02 79 20 12/25/22 23:05 93 20 98 BiPAP 12/26/22 00:00 98.8 F 77 20 123/78 100 12/25/22 20:00 Room Air 12/25/22 20:40 98 12/25/22 20:28 95 20 12/25/22 20:05 96 94 Room Air 12/25/22 20:16 96 2
[2022-12-26 17:10] LABS: Glucose Point of Care 249 mg/dl (65-105)
[2022-12-26] MEDS: amLODIPine BESYLATE 5 MG TABLET 10 MG PO (17:38)
[2022-12-26 20:31] LABS: Glucose Point of Care 260 mg/dl (65-105)
[2022-12-26] MEDS: ONDANSETRON INJ 4 MG/2 ML VIAL IV PUSH (20:42)
[2022-12-26] MEDS: OLANZapine 5 MG TABLET PO (20:43)
[2022-12-26] MEDS: ROSUVASTATIN 10 MG TABLET PO (20:43)
[2022-12-26] MEDS: ARIPiprazole 5 MG TABLET PO (20:43)
[2022-12-26] MEDS: traZODone HCL 50 MG TABLET PO (20:44)
[2022-12-27] VITALS (26 sets, daily range): BP systolic 121–158; BP diastolic 65–79; PULSE 80–98; RESP 16–20; TEMP 36.3–37; O2SAT 93–100
[2022-12-27] MEDS: IPRATROPIUM BR 0.02% INH SOLN 0.5 MG/2.5 ML VIAL INHALATION ×2 (01:39→07:29)
[2022-12-27] MEDS: ALBUTEROL SULFATE NEB 2.5 MG/3 ML INH INHALATION ×2 (01:39→07:30)
--- NOTE | 2022-12-27 01:49 | PCRCNOTE ---
Pt given Neb treatment, Pt is having audible Stridor . RN notified.
[2022-12-27 06:22] LABS: Albumin Level 3.5 g/dL (3.5-5.1); Anion Gap 11 mmol/L (8-16); Blood Urea Nitrogen 43 mg/dL (9-20); Calcium 9.2 mg/dL (8.4-10.2); Carbon Dioxide 28 mmol/L (22-30); Chloride 94 mmol/L (98-107); Estimated CRCL calculation 9 ml/min; Estimated Glomerular Filt Rate 6; Glucose 198 mg/dL (65-110); Phosphorus 5.9 mg/dL (2.5-4.5); Potassium 3.8 mmol/L (3.4-5.0); Sodium 133 mmol/L (137-145)
[2022-12-27] MEDS: FLUTICASONE/SALMETEROL 115-21 MCG INHALER 1 PUFF 2 PUFF INHALATION (07:30)
[2022-12-27 08:15] LABS: Glucose Point of Care 203 mg/dl (65-105)
[2022-12-27] MEDS: INSULIN ASPART (*BKC) 100 UNITS/ML SUB-Q ×2 (09:07→12:27)
[2022-12-27] MEDS: INSULIN GLARGINE (*BKC) 100 UNITS/ML 15 UNITS SUB-Q (09:07)
--- NOTE | 2022-12-27 09:20 | PM.DS ---
DS: Admitting Diagnosis Discharge Date 12/27/2022 Admitting Diagnosis Chest pain DS: Discharge Diagnosis Discharge Diagnosis (1) Unstable angina: Code(s): I20.0 - Unstable angina Status: Acute Assessment and Plan: SEE BELOW (2) Occult blood positive stool: Code(s): R19.5 - Other fecal abnormalities Status: Acute (3) Acute on chronic anemia: Code(s): D64.9 - Anemia, unspecified Status: Acute (4) CAD (coronary artery disease): Qualifiers: Associated angina: without angina Coronary Disease-Associated Artery/Lesion type: [place] artery [place] vs. transplanted heart: [place] heart Qualified Code(s): I25.10 - Atherosclerotic heart disease of [place] coronary artery without angina pectoris Code(s): I25.10 - Atherosclerotic heart disease of [place] coronary artery without angina pectoris Status: Acute (5) End stage renal disease: Code(s): N18.6 - End stage renal disease Status: Chronic (6) Acute respiratory failure: Qualifiers: Respiratory failure complication: hypoxia Qualified Code(s): J96.01 - Acute respiratory failure with hypoxia Code(s): J96.00 - Acute respiratory failure, unspecified whether with hypoxia or hypercapnia Status: Acute (7) Hematoma: Code(s): T14.8XXA - Other injury of unspecified body region, initial encounter Status: Acute Plan 1) angina/restenosis of LAD stent, s/p balloon angioplasty on 12/16 - chest pain resolved - cont aspirin and plavix, and beta sakshi - pt seen by cardiology 2) acute on chronic anemia of chronic disease in ESRD patient - s/p 3 units pRBC, last on 12/18. had hematoma from cath puncture site x2, CT angiogram did not demonstrate active bleeding. HB now stable in 8's. CTM. avoid further anticoagulation for now - stool occult +, GI consulted. no intervention recommended now, outpatient colonoscopy. protonix changed to PO daily 3) acute hypoxic respiratory failure - post cath on 12/16, remain intubated 2/2 to respiratory distress and hypoxia and pulmonary edema. since extubated and on RA on 12/16. respiratory distress resolved. cont dialysis - undiagnosed COPD vs post COVID lung. responsive to duonebs, continue schedule for now to avoid reintubation. had respiratory distress last on 12/22 - continue to encourage walking with walker with PT 4) HCAP - 12/17 levaquin and flagyl started, blood cultures NGTD. cont IV abx given high procalcitonin still. check procalcitonin tomorrow and consider de escalating. ESRD may be contributing somewhat to the elevation - CT chest demonstrated small b/l pleural effusions with b/l consolidations. 5) ESRD MWF - nephrology following - cont dialysis, cont dialysis as opd 6) SHEYLA - CPAP at night 7) IDDM - accuchecks and ISS 8) hypertensive urgency - was on nicadipine gtt temporarily, now on amlodipine and metoprolol with prn hydralazine. goal SBP 140-180, he does drop during dialysis, requiring albumin 9) schizophrenia? - resume home mood stabilizers ok to DC today after dialysis DS: Summary Hospital Course Hospital Course: 62-year-old male patient who is being admitted to the hospital for high risk chest pain with a heart score of 5 and a story strongly suspicious for CAD.? 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 Patient also has 2 prior stents feels like his pain today was reminiscent when he had angioplasty and stenting prior.? Patient sees Cardiology and Nephrology at [place] receives his dialysis in his hometown of [place].? Patient was visiting his son at [facility] preceding today's event.? Patient has been complaining intermittent chest discomfort over the last 1 month. Pt is feeling better seen by cardiology, GI? and nephrology pt is improving hopeful dc today CP related to angina/restenosis of L
--- NOTE | 2022-12-27 11:54 | PCPTNOTE ---
Attempted to see patient for PT, however patient reported not today, that he's waiting to go to dialysis and then discharging home after. Patient declined PT this date.
[2022-12-27 12:13] LABS: Glucose Point of Care 288 mg/dl (65-105)
--- NOTE | 2022-12-27 14:00 | P.PNNP_ITS ---
Progress Note: A&P Assessment and Plan (1) End stage renal disease: Code(s): N18.6 - End stage renal disease Status: Chronic Assessment and Plan: * HD tomorrow * continue M/W/F outpatient dialysis schedule * follow electrolytes, volume status, and clearance * primary sand mill operator = Ashish Vega MD (at [facility] in [place], [place]) (2) Chest pain: Qualifiers: Chest pain type: unspecified Qualified Code(s): R07.9 - Chest pain, unspecified Code(s): R07.9 - Chest pain, unspecified Status: Acute Assessment and Plan: * as noted on admission * transferred to ICU on 12/16 due increasing chest pain and requiring nitroglycerin infusion * s/p cardiac catheterization with findings and intervention noted - restenosis of previously placed LAD stent which was addressed with balloon angioplasty with a good anatomical result * Cardiology following * continue current medical management (3) Hyperkalemia: Code(s): E87.5 - Hyperkalemia Status: Chronic Assessment and Plan: * chronic issue/problem * on [facility] on non-dialysis days as an outpatient * follow trend of K+ (4) Acute respiratory failure: Qualifiers: Respiratory failure complication: hypoxia Qualified Code(s): J96.01 - Acute respiratory failure with hypoxia Code(s): J96.00 - Acute respiratory failure, unspecified whether with hypoxia or hypercapnia Status: Acute Assessment and Plan: * resolved * due to fluid overload/pulmonary edema precipitated by hypertensive urgency along with pneumonia * was intubated and on mechanical ventilation * extubated on 12/19/22 * was requiring BiPAP support - doing better * continue fluid removal as tolerated * follow respiratory status closely (5) Hypertension: Code(s): I10 - Essential (primary) hypertension Status: Acute Assessment and Plan: * seems to fluctuate to extremes * noted issues/problems with intradialytic hypotension * follow trend of hemodynamics (6) Anemia: Qualifiers: Anemia type: unspecified type Qualified Code(s): D64.9 - Anemia, unspecified Code(s): D64.9 - Anemia, unspecified Status: Chronic Assessment and Plan: * partly due to ESRD and acute illness * Epogen with HD * PRBC transfusion per protocol * follow trend of H/H (7) Diabetes mellitus type 1.5: Code(s): E13.9 - Other specified diabetes mellitus without complications Status: Chronic Assessment and Plan: * follow accu-cheks * glycemic control by hospitalists Will continue to follow - not opposed to discharge from renal perspective if otherwise medically stable. Subjective Date/time seen: 12/27/22 14:00 Interval history: Follow-up for end stage renal disease on hemodialysis. Tolerating dialysis treatment at the time of my visit (seen on HD at 1:50PM); seems to be doing reasonably well; no complaints of chest pain or shortness of breath; no issues/events overnight or earlier this morning; states he will likely be discharged following dialysis treatment today. Exam Narrative: General: WD/WN male in NAD Heart: normal S1 and S2; no rub Lungs: clear anteriorly; decreased at bases Abdomen: soft, nontender, nondistended, positive bowel sounds Extremities: no cyanosis or clubbing; trace edema Skin: no rash or nodules Objective Data Vital Signs Vital Signs:
--- NOTE | 2022-12-27 14:00 | PM.PNNEP ---
Progress Note: A&P Assessment and Plan (1) End stage renal disease: Code(s): N18.6 - End stage renal disease Status: Chronic Assessment and Plan: HD tomorrow continue M/W/F outpatient dialysis schedule follow electrolytes, volume status, and clearance primary customer support associate = Ashish Vega MD ([place] [facility] [place] (2) Chest pain: Qualifiers: Chest pain type: unspecified Qualified Code(s): R07.9 - Chest pain, unspecified Code(s): R07.9 - Chest pain, unspecified Status: Acute Assessment and Plan: as noted on admission transferred to ICU on 12/16 due increasing chest pain and requiring nitroglycerin infusion s/p cardiac catheterization with findings and intervention noted - restenosis of previously placed LAD stent which was addressed with balloon angioplasty with a good anatomical result Cardiology following continue current medical management (3) Hyperkalemia: Code(s): E87.5 - Hyperkalemia Status: Chronic Assessment and Plan: chronic issue/problem on [facility] on non-dialysis days as an outpatient follow trend of K+ (4) Acute respiratory failure: Qualifiers: Respiratory failure complication: hypoxia Qualified Code(s): J96.01 - Acute respiratory failure with hypoxia Code(s): J96.00 - Acute respiratory failure, unspecified whether with hypoxia or hypercapnia Status: Acute Assessment and Plan: resolved due to fluid overload/pulmonary edema precipitated by hypertensive urgency along with pneumonia was intubated and on mechanical ventilation extubated on 12/19/22 was requiring BiPAP support - doing better continue fluid removal as tolerated follow respiratory status closely (5) Hypertension: Code(s): I10 - Essential (primary) hypertension Status: Acute Assessment and Plan: seems to fluctuate to extremes noted issues/problems with intradialytic hypotension follow trend of hemodynamics (6) Anemia: Qualifiers: Anemia type: unspecified type Qualified Code(s): D64.9 - Anemia, unspecified Code(s): D64.9 - Anemia, unspecified Status: Chronic Assessment and Plan: partly due to ESRD and acute illness Epogen with HD PRBC transfusion per protocol follow trend of H/H (7) Diabetes mellitus type 1.5: Code(s): E13.9 - Other specified diabetes mellitus without complications Status: Chronic Assessment and Plan: follow accu-cheks glycemic control by hospitalists Will continue to follow - not opposed to discharge from renal perspective if otherwise medically stable. Subjective Date/time seen: 12/27/22 14:00 Interval history: Follow-up for end stage renal disease on hemodialysis. Tolerating dialysis treatment at the time of my visit (seen on HD at 1:50PM); seems to be doing reasonably well; no complaints of chest pain or shortness of breath; no issues/events overnight or earlier this morning; states he will likely be discharged following dialysis treatment today. Exam Narrative: General: WD/WN male in NAD Heart: normal S1 and S2; no rub Lungs: clear anteriorly; decreased at bases Abdomen: soft, nontender, nondistended, positive bowel sounds Extremities: no cyanosis or clubbing; trace edema Skin: no rash or nodules Objective Data Vital Signs Vital Signs: Vital Signs Temp Pulse Resp BP Pulse Ox O2 Del Method O2 Flow Rate 12/27/22 14:00 93 142/74 H 12/27/22 13:40 92 132/75 12/27/22 13:20 98 121/76 12/27/22 13:00 90 155/77 H 12/27/22 12:47 91 158/75 H 12/27/22 12:37 97.5 F L 95 16 147/79 H 12/27/22 12:37 0 12/27/22 12:01 91 12/27/22 08:04 92 12/27/22 07:31 96 Room Air 12/27/22 07:30 80 18 12/27/22 05:11 97.6 F 83 18 146/76 H 98 12/27/22 04:00 94 12/27/22 00:00 92 1
[2022-12-27] MEDS: EPOETIN ALFA 20,000 UNITS/ML VIAL 20000 UNITS IV PUSH (14:45)
== END 2022-12-27 17:25 | disposition home or self-care (01) | DRG 252 ==
LOC: ANHED 15:48 → ANHIMU 16:25 → ANHICU 12-16 05:22 → ANHIMU 12-21 23:14 → ANH2MED 12-23 18:08
PROVIDERS: Emergency Medicine; General Practice; Internal Medicine; Internal Medicine Nephrology; Nurse Practitioner; Specialist; Admitting Provider Chiropractor; Emergency Provider Student in an Organized Health Care Education/Training Program; Visit Provider Family Medicine
PROC: 4A023N7 Measurement of Cardiac Sampling and Pressure, Left Heart, Percutaneous Approach (ICD-10-PCS; CPT 93454; principal; 2022-12-16 08:00)
PROC: 4A023N7 Measurement of Cardiac Sampling and Pressure, Left Heart, Percutaneous Approach (ICD-10-PCS; CPT 92920; 2022-12-16 08:00)
DX: T82.855A Stenosis of coronary artery stent, initial encounter (principal); I21.A9 Other myocardial infarction type; J96.01 Acute respiratory failure with hypoxia; N18.6 End stage renal disease; I12.0 Hypertensive chronic kidney disease with stage 5 chronic kidney disease or end stage renal disease; I97.410 Intraoperative hemorrhage and hematoma of a circulatory system organ or structure complicating a cardiac catheterization; I25.10 Atherosclerotic heart disease of native coronary artery without angina pectoris; Z95.5 Presence of coronary angioplasty implant and graft; D63.1 Anemia in chronic kidney disease; E11.22 Type 2 diabetes mellitus with diabetic chronic kidney disease; E78.5 Hyperlipidemia, unspecified; E87.5 Hyperkalemia; G47.33 Obstructive sleep apnea (adult) (pediatric); I35.0 Nonrheumatic aortic (valve) stenosis; I16.0 Hypertensive urgency; R19.5 Other fecal abnormalities; Z20.822 Contact with and (suspected) exposure to COVID-19; Z99.2 Dependence on renal dialysis; Z79.82 Long term (current) use of aspirin; Z79.4 Long term (current) use of insulin; Z86.16 Personal history of COVID-19; Z99.89 Dependence on other enabling machines and devices; Z88.0 Allergy status to penicillin
CPT/HCPCS: 31500; 36415; 36430; 36600; 71045; 75635; 80048; 80053; 80069; 82140; 82274; 82375; 82550; 82805; 82948; 83036; 83050; 83605; 83690; 83735; 84100; 84145; 84443; 84478; 84484; 85014; 85018; 85025; 85027; 85055; 85384; 85610; 85730; 86706; 86850; 86900; 86901; 86923; 87040; 87070; 87205; 87340; 87637; 92920; 93005; 93454; 94002; 94003; 94640; 96375; 97110; 97161; 97166; 97530; 97535; 99285; A9270; C1725; C1751; C1769; C1887; C1894; C8929; C9113; G0257; G0378; J0360; J0583; J1644; J1815; J1836; J1885; J1940; J1956; J2060; J2250; J2270; J2305; J2405; J2704; J2920; J3010; J7030; J7040; J7050; J7060; P9016; P9041; P9047; Q4081; Q5105; Q9957; Q9967